=== PATIENT | male | born 1940 | race Caucasian/White ===

== ENCOUNTER 2016-05-12 15:19 | Emergency (ER) | payer OTHER ==
--- NOTE | 2016-05-12 15:32 | EDPHY ---
HPI/HX/ROS/PE/MDM Narrative: CHIEF COMPLAINT: Shortness of breath HPI: The patient is a 75-year-old male who presents with shortness of breath and bloating that began 12 hours ago. His bloating has been increasing over the past week. He has a history of similar symptoms and they are usually relieved after bowel movement and his inhaler but these did not work today. The shortness of breath is not worsened with exertion. He denies abdominal pain, chest pain, peripheral edema, or other complaints. He had a colonoscopy in March that showed a few polyps. REVIEW OF SYSTEMS: Aside from elements discussed in the HPI, a comprehensive 10-point review of systems was reviewed and is negative. PMH: COPD. SOCIAL HISTORY: Former smoker. PHYSICAL EXAM: General: Patient is alert, in no acute distress. ENT: Eyes are normal to inspection. ENT inspection normal. Neck: Normal inspection. Full range of motion. Respiratory: No respiratory distress. Breath sounds normal bilaterally. Mild tachypnea. Cardiovascular: Regular rhythm. Strong peripheral pulses. Mild tachycardia. Abdomen: The abdomen is nontender to palpation. There are no peritoneal signs. There are normal bowel sounds. Back: Normal to inspection. No tenderness to palpation. Skin: Normal color. No rash. Warm and dry. Extremities: Normal appearance. Full range of motion. Neuro: Oriented x3. Normal motor function. Normal sensory function. Portions of this note were transcribed by an ED scribe. I personally performed the history, physical exam, and medical decision making; and confirm the accuracy of the information in the transcribed note. ED Course: An IV was established and labs ordered. Chest x-ray, EKG, and abdominal x-ray obtained. Study: PA and Lateral Chest X-ray Indication: SOB. Results: I viewed the images myself on the PACS system. The radiologist interpretation per Dr. Brar, radiology, is: 1. Negative for acute abnormality. 2. Hyperexpansion suggested element of airways disease. Study: Abdomen X-ray Indication: Bloating. Results: I viewed the images myself on the PACS system. The radiologist interpretation per Dr. Schmidt, radiology, is: No significant abnormality seen within the abdomen. EKG was ordered and interpreted by myself. Please see [employer] system for official reading. MDM: This patient presents with dyspnea and abdominal bloating, which he states is a chronic intermittent occurrence for him. We performed an extensive workup in the ED to exclude CHF, PNA, PTX,ACS or bowel obstruction. The patient has negative labs and unremarkable XRs. He initially arrived somewhat tachycardic and tachypneic, but was also extremely anxious at that time. The patient's vitals have all completely normalized without intervention. We discussed possibility of PE, but patient declines testing for this possibility. He is able to race-walk without significant difficulty, so I think cardiac etiology is unlikely. The patient's primary issue appears to be abdominal bloating and there is some suggestion of constipation on XR. I have advised the patient to try an trial of laxatives tonight and to return to the ED tonight if not better. - Data Points Laboratory Results: Laboratory Results 05/12/16 15:43 05/12/16 15:43 05/12/16 05/12/16 15:43 15:43 WBC 12.51 10^3/uL H 10^3/uL (3.80-9.50) RBC 5.28 10^6/uL 10^6/uL (4.40-6.38) Hgb 16.9 g/dL g/dL (13.7-17.5) Hct 49.6 % % (40.0-51.0) MCV 93.9 fL fL (81.5-99.8) MCH 32.0 pg pg (27.9-34.1) MCHC 34.1 g/dL g/dL (32.4-36.7) RDW 12.9 % % (11.5-15.2) Plt Count 170 10^3/uL 10^3/uL (150-400) MPV 9.2 fL fL (8.7-11.7) Neut % (Auto) 60.4 % % (39.3-74.2) Lymph % (Auto) 29.3 % % (15.0-45.0) [place] % (Auto) 6.9 % % (4.5-13.0) Eos % (Auto) 2.6 % % (0.6-7.6) Baso % (Auto) 0.6 % % (0.3-1.7) Nucleat RBC Rel Count 0.0 % % (0.0-0.2) Absolute Neuts (auto) 7.58 10^3/uL H 10^3/uL (1.70-6.50) Absolute Lymphs (auto) 3.66 10^3/uL H 10^3/uL (1.00-3.00) Absolute Monos (auto) 0.86 10^3/uL H 10^3/uL (0.30-0.80) Absolute Eos (auto) 0.32 10^3/uL 10^3/uL (0.03-0.40) Absolute Basos (auto) 0.07 10^3/uL 10^3/uL (0.02-0.10) Absolute Nucleated RBC 0.00 10^3/uL 10^3/uL (0-0.01) Immature Gran % 0.2 % % (0.0-1.1) Immature Gran # 0.02 10^3/uL 10^3/uL (0.00-0.10) Sodium 141 mEq/L mEq/L (134-144) Potassium 4.2 mEq/L mEq/L (3.5-5.2) Chloride 103 mEq/L mEq/L (97-110) Carbon Dioxide 27 mEq/l mEq/l (22-31) Anion Gap 11 mEq/L mEq/L (8-16) BUN 23 mg/dL mg/dL (7-23) Creatinine 0.9 mg/dL mg/dL (0.7-1.3) Estimated GFR > 60 Glucose 80 mg/dL mg/dL (70-100) Calcium 9.9 mg/dL mg/dL (8.5-10.4) Total Bilirubin 0.9 mg/dL mg/dL (0.1-1.4) Conjugated Bilirubin 0.4 mg/dL mg/dL (0.0-0.5) Unconjugated Bilirubin 0.5 mg/dL mg/dL (0.0-1.1) AST 29 IU/L IU/L (17-59) ALT 37 IU/L IU/L (21-72) Alkaline Phosphatase 81 IU/L IU/L (38-126) Troponin I < 0.012 ng/mL ng/mL (0-0.034) NT-Pro-B Natriuret Pep 72 pg/mL pg/mL (0-125) Total Protein 6.8 g/dL g/dL (6.3-8.2) Albumin 4.5 g/dL g/dL (3.5-5.0) Medications Given: Discontinued Medications Magnesium Citrate (Magnesium Citrate) 300 ml PO ONCE ONE Stop: 05/12/16 17:07 Last Admin: 05/12/16 17:12 Dose: 300 ml General Time Seen by Provider: 05/12/16 15:31 Initial Vital Signs: Initial Vital Signs Temperature (C) 36.7 C 05/12/16 15:20 Heart Rate 117 H 05/12/16 15:20 Respiratory Rate 22 H 05/12/16 15:20 Blood Pressure 160/112 H 05/12/16 15:20 O2 Sat (%) 93 05/12/16 15:20 O2 Delivery Mode Room Air O2 (L/minute) 2 Allergies/Adverse Reactions: Penicillins Allergy (Verified 05/25/13 03:51) Sulfa (Sulfonamide Antibiotics) Allergy (Verified 05/25/13 03:51) Home Medications: Medication Instructions Recorded Flomax 0.4 MG (RX) 05/25/13 Albuterol 05/12/16 ISRADIPINE 05/12/16 Departure - Departure Disposition: Home, Routine, Self-Care Clinical Impression: Shortness of breath Constipation Qualifiers: Constipation type: unspecified constipation type Qualified Code(s): K59.00 - Constipation, unspecified Condition: Good Instructions: Constipation (ED), Dyspnea (ED) Additional Instructions: Follow up with your primary care provider this week for reevaluation. Return to the emergency department for any serious worsening of condition. Referrals: Purnima Schwab MD [Primary Care Provider] - As per Instructions Report Scribed for: Nakul Reyes Report Scribed by: Jeremy Jones Date of Report: 05/12/16 Time of Report: 15:37
--- NOTE | 2016-05-12 15:42 | CPEKG ---
Heart Rate: 110 RR Interval: 545 P-R Interval: 176 QRSD Interval: 78 QT Interval: 328 QTC Interval: 444 P Irene: 72 QRS Irene: 257 T Wave Irene: 51 EKG Severity - ABNORMAL ECG - EKG Impression: SINUS TACHYCARDIA EKG Impression: BIATRIAL ABNORMALITIES EKG Impression: INFERIOR INFARCT, OLD EKG Impression: Poor R-wave progression Electronically Signed By: Miguel Oro 14-May-2016 18:22:57
[2016-05-12 15:50] LABS: % IMMATURE GRANULYOCYTES 0.2 % (0.0-1.1); ABSOLUTE IMMATURE GRANULOCYTES 0.02 10^3/uL (0.00-0.10); ADD DIFF? NO; ADD MORPH? NO; ADD SCAN? NO; ATYPICAL LYMPHOCYTE FLAG 10 (0-99); FRAGMENT RBC FLAG 0 (0-99); HEMATOCRIT 49.6 % (40.0-51.0); HEMOGLOBIN 16.9 g/dL (13.7-17.5); LEFT SHIFT FLG 0 (0-99); LIPEMIA HEMOLYSIS FLAG 90 (0-99); MEAN CELL HEMOGLOBIN CONCENTR. 34.1 g/dL (32.4-36.7); MEAN CELL VOLUME 93.9 fL (81.5-99.8); MEAN PLATELET VOLUME 9.2 fL (8.7-11.7); PLATELET CLUMPS FLAG 0 (0-99); PLATELET COUNT 170 10^3/uL (150-400); RED BLOOD CELL COUNT 5.28 10^6/uL (4.40-6.38); RED CELL DISTRIBUTION WIDTH 12.9 % (11.5-15.2)
[2016-05-12 16:03] LABS: ALANINE AMINOTRANSFERASE 37 IU/L (21-72); ALBUMIN 4.5 g/dL (3.5-5.0); ALKALINE PHOSPHATASE 81 IU/L (38-126); ANION GAP 11 mEq/L (8-16); ASPARTATE AMINOTRANSFERASE 29 IU/L (17-59); BILIRUBIN,TOTAL 0.9 mg/dL (0.1-1.4); BILIRUBIN-CONJUGATED 0.4 mg/dL (0.0-0.5); BILIRUBIN-UNCONJUGATED 0.5 mg/dL (0.0-1.1); CALCIUM 9.9 mg/dL (8.5-10.4); CARBON DIOXIDE 27 mEq/l (22-31); CHLORIDE 103 mEq/L (97-110); CREATININE 0.9 mg/dL (0.7-1.3); GLOMERULAR FILTRATION RATE > 60; GLUCOSE 80 mg/dL (70-100); POTASSIUM 4.2 mEq/L (3.5-5.2); SODIUM 141 mEq/L (134-144); TOTAL PROTEIN 6.8 g/dL (6.3-8.2)
[2016-05-12 16:14] LABS: TROPONIN I < 0.012 ng/mL (0-0.034)
[2016-05-12 16:51] VITALS: TEMP 98.6
[2016-05-12] MEDS: MAGNESIUM CITRATE 300 ML BOTTLE PO ONE (17:12)
[2016-05-12 17:25] VITALS: BP 115/83; PULSE 80; RESP 16; O2SAT 97
== END 2016-05-12 17:25 | disposition home or self-care (01) ==
DX: R06.02 Shortness of breath (principal); K59.00 Constipation, unspecified; J44.9 Chronic obstructive pulmonary disease, unspecified; Z87.891 Personal history of nicotine dependence

== ENCOUNTER 2016-05-13 00:44 | Emergency (ER) | payer OTHER ==
[2016-05-13 00:49] VITALS: TEMP 97.9
[2016-05-13] MEDS ORDERED: IOPAMIDOL (ISOVUE-300) 100 ML BTL IV ONE (01:37)
[2016-05-13 02:43] LABS: COLOR YELLOW; LEUKOCYTE ESTERASE,URINE NEGATIVE (NEGATIVE); NITRITE,URINE NEGATIVE (NEGATIVE)
--- NOTE | 2016-05-13 03:24 | EDPHY ---
H & P Stated Complaint: seen earlier, continued bloating and SOB Time Seen by Provider: 05/13/16 01:07 HPI/ROS: HPI The patient presents with continued abdominal bloating associated with mild shortness of breath. His symptoms have been present for the last 1 day. He took a dose of simethicone without any improvement in his symptoms in the morning. He then was able to have branch with friends and go for a long walk without any problems. He had continued bloating in the afternoon, so came to the emergency room. Chest x-ray and abdominal x-ray were obtained and basic labs were performed. His workup was relatively unremarkable and it was presumed that he had constipation as the cause of his symptoms. He was discharged home about 5:00 p.m. with a prescription of magnesium citrate. He was able to take this without difficulty and did have about 3 bowel movements afterwards. He said he has been unable to sleep because he is feeling uncomfortable because of the abdominal bloating that he is experiencing. He feels somewhat panicked because of all of this. He does have history of intermittent abdominal bloating. He is not having any vomiting, true abdominal pain. REVIEW OF SYSTEMS Constitutional: No fever, no chills. Eyes: No discharge. ENT: No sore throat. Cardiovascular: No chest pain, no palpitations. Respiratory: No cough, no shortness of breath. Gastrointestinal: No abdominal pain, no vomiting. Genitourinary: No hematuria. Musculoskeletal: No back pain. Skin: No rashes. Neurological: No headache. PMHx: BPH, history of cervical spinal operation Soc Hx: Housed, occasional beer drinker PHYSICAL General Appearance: Alert, no distress Eyes: Pupils equal and round no pallor or injection ENT, Mouth: Mucous membranes moist Respiratory: There are no retractions, lungs are clear to auscultation Cardiovascular: Regular rate and rhythm Gastrointestinal: Abdomen is soft with very mild distension, no tenderness is present Neurological: A&O, moves all extremities Skin: Warm and dry, no rashes Musculoskeletal: Neck is supple non tender Extremities: symmetrical, full range of motion Psychiatric: Patient is oriented X 3, there is no agitation Source: Patient Exam Limitations: No limitations - Personal History Current Tetanus/Diphtheria Vaccine: Unsure Current Tetanus Diphtheria and Acellular Pertussis (TDAP): Unsure - Medical/Surgical History Hx Asthma: No Hx Chronic Respiratory Disease: Yes Hx Diabetes: No Hx Cardiac Disease: No Hx Renal Disease: No Hx Cirrhosis: No Hx Alcoholism: No Hx HIV/AIDS: No Hx Splenectomy or Spleen Trauma: No Other PMH: 05/19/12 cervical spinal surgery 05/31, [facility], BPH - Social History Smoking Status: Former smoker Constitutional: Initial Vital Signs Temperature (C) 36.6 C 05/13/16 00:47 Heart Rate 99 05/13/16 00:47 Respiratory Rate 18 05/13/16 00:47 Blood Pressure 136/95 H 05/13/16 00:47 O2 Sat (%) 93 05/13/16 00:47 O2 Delivery Mode Room Air O2 (L/minute) 36.8 Allergies/Adverse Reactions: Penicillins Allergy (Verified 05/25/13 03:51) Sulfa (Sulfonamide Antibiotics) Allergy (Verified 05/25/13 03:51) Home Medications: Medication Instructions Recorded Flomax 0.4 MG (RX) 05/25/13 Albuterol 05/12/16 ISRADIPINE 05/12/16 Medical Decision Making - Diagnostics Imaging: CT abdomen pelvis with IV contrast: Moderate right hydronephrosis with a 7 mm stone in the distal ureter, also there is a distal UVJ mucosal lesion suspected. 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 Discussed with Dr. Boone of Radiology. ED Course/Re-evaluation: In the emergency room, the patient took a dose of his Xanax because he was feeling quite anxious. I-STAT was performed and was unremarkable, thus CT scan was performed with IV contrast of his abdomen. It did not show any obstruction or constipation, however it did reveal right-sided hydronephrosis with a 7 mm kidney stone as well as a mucosal lesion at the UVJ. It is unclear if the stone or the lesion is causing obstruction. It would be possible, though unlikely for hydronephrosis to cause this feeling of abdominal bloating. His CT scan also does see a pericardial cyst. I doubt this is the cause of his symptoms given the bloating is his predominant complaint. I have discussed the results of the CT scan with him. UA was obtained and was unremarkable for any hematuria. He does see a urologist, though cannot recall the name for his BPH. I have explained the importance of Urology follow-up to him. He has an appointment with his primary care doctor within the next 10 days and I feel this will be helpful given that there is some diagnostic uncertainty related to his abdominal bloating. He will be discharged from the emergency room. Differential Diagnosis: This is a 75-year-old man with history of BPH who re-presents to the emergency room for continued abdominal bloating. He has had symptoms for the last 1 day. He was seen in the emergency room earlier today and diagnosed with constipation. He took magnesium citrate at home and had 3 bowel movements, however his bloating continues. This is associated with a feeling of panic and mild shortness of breath which she feels is due to the pressure from his abdomen. Differential diagnosis includes constipation, bowel obstruction, new onset ascites. - Data Points Laboratory Results: 05/13/16 02:35 Urine Color YELLOW Urine Appearance CLEAR Urine pH 5.0 (5.0-7.5) Ur Specific [place] 1.035 H (1.002-1.030) Urine Protein NEGATIVE (NEGATIVE) Urine Ketones NEGATIVE (NEGATIVE) Urine Blood NEGATIVE (NEGATIVE) Urine Nitrate NEGATIVE (NEGATIVE) Urine Bilirubin NEGATIVE (NEGATIVE) Urine Urobilinogen NEGATIVE EU EU (0.2-1.0) Ur Leukocyte Esterase NEGATIVE (NEGATIVE) Ur Culture Indicated? NOT INDICATED (NI) Urine Glucose NEGATIVE (NEGATIVE) Departure - Departure Disposition: Home, Routine, Self-Care Clinical Impression: Abdominal bloating, Ureteral stone with hydronephrosis Condition: Good Instructions: Gas and Bloating (ED) Additional Instructions: Please follow-up with your primary care doctor this week about your CT scan and your bloating. You can try simethicone as well as a low gluten diet to see if this improves her symptoms. You should also follow up with Urology. I have given you the information for our urologist that you can make an appointment with. Referrals: Purnima Schwab MD [Primary Care Provider] - As per Instructions Cyrus Glass MD [Medical Doctor] - As per Instructions
[2016-05-13 03:39] VITALS: BP 115/80; PULSE 77; RESP 20; O2SAT 92
== END 2016-05-13 03:39 | disposition home or self-care (01) ==
DX: R14.0 Abdominal distension (gaseous) (principal); N20.1 Calculus of ureter; N13.30 Unspecified hydronephrosis; Z87.891 Personal history of nicotine dependence
CPT/HCPCS: 74177; 99285; Q9967

== ENCOUNTER 2016-06-05 19:39 | Observation (INO) | payer OTHER ==
--- NOTE | 2016-06-05 19:48 | EDPHY ---
H & P Stated Complaint: SOB, difficulty breathing x1 month, seen at PCP today HPI/ROS: HPI CHIEF COMPLAINT: Dyspnea HISTORY OF PRESENT ILLNESS: This patient Is a 75-year-old male significant past medical history for COPD, not on O2, BPH, cervical fusion, presents emergency room with 1 month of progressively worsening shortness of breath, wheezing. Saw his primary care doctor today. Was given a prescription for albuterol inhalation aerosol to take home. He got to the pharmacy felt he was having worsening shortness of breath decided come the emergency room. He denies chest pain. Denies fever. He does have a cough white sputum. No pleuritic pain no hemoptysis. States over the past month he has been progressively worsening shortness of breath. No weight gain, no lower extremity edema. Upon arrival here in emergency room pulse ox room air 90%, noted to be slightly tachycardic 101, with expiratory wheezing. Mild tachypnea. Past Medical History: COPD, BPH Past Surgical History: Cervical fusion Social History: Remote smoking history, denies daily use of drugs tobacco. Denies alcohol. Family History: Noncontributory ROS REVIEW OF SYSTEMS: A comprehensive 10 point review of systems is otherwise negative aside from elements mentioned in the history of present illness. Exam Constitutional Flares well nontoxic, triage nursing summary reviewed, vital signs reviewed, awake/alert. Vital signs reviewed pulse ox 90%. Eyes normal conjunctivae and sclera, EOMI, PERRLA. HENT normal inspection, atraumatic, moist mucus membranes, no epistaxis, neck supple/ no meningismus, no raccoon eyes. Respiratory decreased breath sounds bilaterally, expiratory wheezing, mild tachypnea Cardiovascular rate normal, regular rhythm, no murmur, no edema, distal pulses normal. Gastrointestinal soft, non-tender, no rebound, no guarding, normal bowel sounds, no distension, no pulsatile mass. Genitourinary no CVA tenderness. Musculoskeletal no midline vertebral tenderness, full range of motion, no calf swelling, no tenderness of extremities, no meningismus, good pulses, neurovascularly intact. Skin pink, warm, & dry, no rash, skin atraumatic. Neurologic awake, alert and oriented x 3, AAOx3, moves all 4 extremities equally, motor intact, sensory intact, CN II-XII intact, normal cerebellar, normal vision, normal speech. Psychiatric normal mood/affect. Heme/Lymph/Immune no lymphadenopathy. Differential Diagnosis: Includes but is not limited to in a particular order, COPD exacerbation, pneumonia, viral pneumonia, bacterial pneumonia, pneumothorax or CHF, ACS Medical Decision Making: Plan for patient IV establishment blood draw, IV fluid bolus IV Solu-Medrol, DuoNeb breathing treatment two view chest x-ray. EKG. Re-evaluation. Re-evaluation: ED x-ray chest two view; image interpreted myself. Prolonged lung drew. Narrow cardiac silhouette. COPD appearing. No focal infiltrate. No pneumothorax. EKG interpretation by me on record in [employer] system. Impression time of EKG 2023, sinus rhythm rate of 97 Q-waves present in inferior leads otherwise unremarkable. 2033: Re-examination at this time this patient does feel better. Feels better after DuoNeb breathing treatment. Clear breath sounds. Discussion the patient about admission to the hospital for COPD exacerbation about going home. He still deciding. He choose to go home I will prescribe him prednisone, albuterol, azithromycin. We will road test him on pulse ox to see if he desats or gets dyspnea on exertion. 2049: Re-examination at this time patient requesting admission to the hospital for shortness of breath. He did ambulate well. Pulse ox 90%. Still has very faint wheezing. Plan is for admission for COPD exacerbation IV azithromycin ordered. IV Solu-Medrol, oxygen 2 L, steroids. Source: Patient - Personal History Current Tetanus/Diphtheria Vaccine: Unsure Current Tetanus Diphtheria and Acellular Pertussis (TDAP): Unsure - Medical/Surgical History Hx Asthma: No Hx Chronic Respiratory Disease: Yes Hx Diabetes: No Hx Cardiac Disease: No Hx Renal Disease: No Hx Cirrhosis: No Hx Alcoholism: No Hx HIV/AIDS: No Hx Splenectomy or Spleen Trauma: No Other PMH: 05/19/12 cervical spinal surgery 05/31, [facility], BPH, COPD - Social History Smoking Status: Former smoker Constitutional: Initial Vital Signs Temperature (C) 37.1 C 06/05/16 19:40 Heart Rate 99 06/05/16 19:40 Respiratory Rate 20 06/05/16 19:40 Blood Pressure 122/99 H 06/05/16 19:40 O2 Sat (%) 93 06/05/16 19:40 O2 Delivery Mode Room Air Allergies/Adverse Reactions: Penicillins Allergy (Verified 06/05/16 19:43) Sulfa (Sulfonamide Antibiotics) Allergy (Verified 06/05/16 19:43) Home Medications: Medication Instructions Recorded Flomax 0.4 MG (RX) 05/25/13 Albuterol 05/12/16 ISRADIPINE 05/12/16 Albuterol [Proventil Inhaler HFA 1 - 2 puffs IH Q4H #1 mdi 06/05/16 (*)] predniSONE 60 mg PO DAILY #15 tab 06/05/16 Medical Decision Making - Data Points Laboratory Results: Laboratory Results 06/05/16 20:03 06/05/16 20:03 06/05/16 06/05/16 06/05/16 20:03 20:03 20:03 WBC 16.16 10^3/uL H 10^3/uL (3.80-9.50) RBC 5.27 10^6/uL 10^6/uL (4.40-6.38) Hgb 16.6 g/dL g/dL (13.7-17.5) Hct 48.9 % % (40.0-51.0) MCV 92.8 fL fL (81.5-99.8) MCH 31.5 pg pg (27.9-34.1) MCHC 33.9 g/dL g/dL (32.4-36.7) RDW 13.1 % % (11.5-15.2) Plt Count 240 10^3/uL 10^3/uL (150-400) MPV 9.1 fL fL (8.7-11.7) Neut % (Auto) 51.9 % % (39.3-74.2) Lymph % (Auto) 33.0 % % (15.0-45.0) [place] % (Auto) 6.6 % % (4.5-13.0) Eos % (Auto) 7.7 % H % (0.6-7.6) Baso % (Auto) 0.5 % % (0.3-1.7) Nucleat RBC Rel Count 0.0 % % (0.0-0.2) Absolute Neuts (auto) 8.37 10^3/uL H 10^3/uL (1.70-6.50) Absolute Lymphs (auto) 5.34 10^3/uL H 10^3/uL (1.00-3.00) Absolute Monos (auto) 1.07 10^3/uL H 10^3/uL (0.30-0.80) Absolute Eos (auto) 1.25 10^3/uL H 10^3/uL (0.03-0.40) Absolute Basos (auto) 0.08 10^3/uL 10^3/uL (0.02-0.10) Absolute Nucleated RBC 0.00 10^3/uL 10^3/uL (0-0.01) Immature Gran % 0.3 % % (0.0-1.1) Immature Gran # 0.05 10^3/uL 10^3/uL (0.00-0.10) PT 12.7 SEC SEC (12.0-15.0) INR 0.96 (0.83-1.16) APTT 26.0 SEC SEC (23.0-38.0) Sodium 139 mEq/L mEq/L (134-144) Potassium 4.2 mEq/L mEq/L (3.5-5.2) Chloride 104 mEq/L mEq/L (97-110) Carbon Dioxide 24 mEq/l mEq/l (22-31) Anion Gap 11 mEq/L mEq/L (8-16) BUN 19 mg/dL mg/dL (7-23) Creatinine 0.9 mg/dL mg/dL (0.7-1.3) Estimated GFR > 60 Glucose 127 mg/dL H mg/dL (70-100) Calcium 9.3 mg/dL mg/dL (8.5-10.4) Magnesium 2.2 mg/dL mg/dL (1.6-2.3) Total Bilirubin 0.8 mg/dL mg/dL (0.1-1.4) Conjugated Bilirubin 0.5 mg/dL mg/dL (0.0-0.5) Unconjugated Bilirubin 0.3 mg/dL mg/dL (0.0-1.1) AST 22 IU/L IU/L (17-59) ALT 29 IU/L IU/L (21-72) Alkaline Phosphatase 80 IU/L IU/L (38-126) Creatine Kinase 55 IU/L IU/L (0-224) CK-MB (CK-2) Fraction 1.76 ng/mL ng/mL (0-3.19) Troponin I < 0.012 ng/mL ng/mL (0-0.034) NT-Pro-B Natriuret Pep 47 pg/mL pg/mL (0-125) Total Protein 6.6 g/dL g/dL (6.3-8.2) Albumin 4.4 g/dL g/dL (3.5-5.0) Medications Given: Discontinued Medications Albuterol/Ipratropium (Duoneb) 3 ml IH EDNOW ONE Stop: 06/05/16 19:55 Last Admin: 06/05/16 20:44 Dose: 3 ml Sodium Chloride (Ns) 1,000 mls @ 0 mls/hr IV ONCE ONE PRN Reason: Wide Open Stop: 06/05/16 19:54 Last Admin: 06/05/16 20:11 Dose: 1,000 mls Methylprednisolone Sodium Succinate (Solu-Medrol) 125 mg IVP EDNOW ONE Stop: 06/05/16 19:55 Last Admin: 06/05/16 20:11 Dose: 125 mg Departure - Departure Disposition: Home, Routine, Self-Care Clinical Impression: COPD (chronic obstructive pulmonary disease) Qualifiers: COPD type: unspecified COPD Qualified Code(s): J44.9 - Chronic obstructive pulmonary disease, unspecified Condition: Good Instructions: COPD (Chronic Obstructive Pulmonary Disease) (ED) Additional Instructions: 1. Stay well-hydrated drink lots of fluids. 2. take medication as prescribed. 3. Return emergency room if you have any worsening symptoms questions or concerns includes worsening shortness of breath chest pain. Referrals: Purnima Schwab MD [Primary Care Provider] - As per Instructions Prescriptions: Albuterol [Proventil Inhaler HFA (*)] 1 - 2 puffs IH Q4H #1 mdi predniSONE 60 mg PO DAILY #15 tab
[2016-06-05] MEDS ORDERED: NS 1,000 ML IV ONE (19:53)
[2016-06-05] MEDS ORDERED: IPRATROPIUM/ALBUTEROL 3 ML DEYVIAL IH ONE (19:54)
[2016-06-05] MEDS ORDERED: methylPREDNISolone SOD SUCC 125 MG/2 ML VIAL IVP ONE (19:54)
[2016-06-05 20:15] LABS: % IMMATURE GRANULYOCYTES 0.3 % (0.0-1.1); ABSOLUTE IMMATURE GRANULOCYTES 0.05 10^3/uL (0.00-0.10); ADD DIFF? NO; ADD MORPH? NO; ADD SCAN? NO; ATYPICAL LYMPHOCYTE FLAG 10 (0-99); FRAGMENT RBC FLAG 10 (0-99); HEMATOCRIT 48.9 % (40.0-51.0); HEMOGLOBIN 16.6 g/dL (13.7-17.5); LEFT SHIFT FLG 0 (0-99); LIPEMIA HEMOLYSIS FLAG 90 (0-99); MEAN CELL HEMOGLOBIN 31.5 pg (27.9-34.1); MEAN CELL HEMOGLOBIN CONCENTR. 33.9 g/dL (32.4-36.7); MEAN CELL VOLUME 92.8 fL (81.5-99.8); MEAN PLATELET VOLUME 9.1 fL (8.7-11.7); PLATELET CLUMPS FLAG 10 (0-99); PLATELET COUNT 240 10^3/uL (150-400); RED BLOOD CELL COUNT 5.27 10^6/uL (4.40-6.38); RED CELL DISTRIBUTION WIDTH 13.1 % (11.5-15.2)
[2016-06-05 20:23] LABS: ALANINE AMINOTRANSFERASE 29 IU/L (21-72); ALBUMIN 4.4 g/dL (3.5-5.0); ALKALINE PHOSPHATASE 80 IU/L (38-126); ANION GAP 11 mEq/L (8-16); ASPARTATE AMINOTRANSFERASE 22 IU/L (17-59); BILIRUBIN,TOTAL 0.8 mg/dL (0.1-1.4); BILIRUBIN-CONJUGATED 0.5 mg/dL (0.0-0.5); BILIRUBIN-UNCONJUGATED 0.3 mg/dL (0.0-1.1); CALCIUM 9.3 mg/dL (8.5-10.4); CARBON DIOXIDE 24 mEq/l (22-31); CHLORIDE 104 mEq/L (97-110); CREATININE 0.9 mg/dL (0.7-1.3); GLOMERULAR FILTRATION RATE > 60; GLUCOSE 127 mg/dL (70-100); MAGNESIUM 2.2 mg/dL (1.6-2.3); POTASSIUM 4.2 mEq/L (3.5-5.2); SODIUM 139 mEq/L (134-144); TOTAL PROTEIN 6.6 g/dL (6.3-8.2)
--- NOTE | 2016-06-05 20:26 | CPEKG ---
Heart Rate: 97 RR Interval: 619 P-R Interval: 144 QRSD Interval: 82 QT Interval: 340 QTC Interval: 432 P Ideal: 63 QRS Ideal: 265 T Wave Ideal: 26 EKG Severity - ABNORMAL ECG - EKG Impression: SINUS RHYTHM EKG Impression: BIATRIAL ABNORMALITIES EKG Impression: INFERIOR INFARCT, OLD EKG Impression: BORDERLINE R WAVE PROGRESSION, ANTERIOR LEADS Electronically Signed By: Osman Harrington 05-Jun-2016 22:24:26
[2016-06-05 20:28] LABS: INR 0.96 (0.83-1.16); PROTIME(PATIENT) 12.7 SEC (12.0-15.0)
[2016-06-05 20:35] LABS: CREATINE KINASE-MB FRACTION 1.76 ng/mL (0-3.19); TROPONIN I < 0.012 ng/mL (0-0.034)
[2016-06-05] MEDS ORDERED: AZITHROMYCIN IV 500 MG in D5W 250 ML IV ONE (20:50)
[2016-06-05] MEDS ORDERED: ACETAMINOPHEN 325 MG TAB PO PRN (23:18)
[2016-06-05] MEDS ORDERED: ONDANSETRON DISINTEGRATING 4 MG TAB PO PRN (23:18)
[2016-06-05] MEDS ORDERED: ALBUTEROL 3 ML DEYVIAL IH PRN (23:18)
[2016-06-05] MEDS ORDERED: ONDANSETRON 4 MG/2 ML VIAL IVP PRN (23:18)
[2016-06-06 00:04] VITALS: O2SAT 95
--- NOTE | 2016-06-06 00:49 | GHP ---
[f rep st] HISTORY AND PHYSICAL DATE OF ADMISSION: 06/05/2016 CHIEF COMPLAINT: Shortness of breath. HISTORY OF PRESENT ILLNESS: The patient is a 75-year-old male, with a history of tobacco abuse and possible COPD, who presents to the emergency department with shortness of breath. This is the third ER visit in the past month with these symptoms. He was recently referred by his primary care physician for pulmonary function tests due to suspected COPD, though this diagnosis has not been confirmed. He states for the past 3-4 weeks, he has had a cough, which has been intermittently productive of clear sputum. He also complains of wheezing. He has been treated with albuterol in the outpatient setting, and recently completed 1 week of oral prednisone, though he had worsening shortness of breath symptoms today, and presents to the emergency department. He denies chest pain. He denies fevers or chills. There are no sick contacts. In the emergency department, he was given IV Solu-Medrol and nebulizer treatments, which did help his symptoms, though he is persistently dyspneic, with oxygen saturations in the low 90s, thus he is admitted to the hospital for further management. PAST MEDICAL HISTORY: 1. Benign prostatic hypertrophy. 2. History of tobacco abuse. 3. Possible COPD. 4. Possible Parkinson's disease. Patient states he has seen a neurologist, who suspects he may have Parkinson's, though this diagnosis has not been definitively made. PAST SURGICAL HISTORY: 1. Cervical fusion. 2. Lithotripsy, with ureteral stent placement, which has since been removed by Dr. Jackson. SOCIAL HISTORY: The patient reports he quit smoking in 2013 at the time of his cervical fusion surgery. He reports regular alcohol use, though denies history of withdrawal symptoms. He denies other drug use. He lives independently. He is . FAMILY HISTORY: Reviewed and noncontributory. REVIEW OF SYSTEMS: A 10-point review of systems was performed and is negative, except as per HPI. OBJECTIVE: VITAL SIGNS: Temperature is 37.1, blood pressure 131/72, heart rate 99, respiratory rate 14. He is 93% on room air. GENERAL: The patient is awake, alert, and oriented, in no acute distress. HEENT: Head is atraumatic, normocephalic. Pupils are equal, round, and reactive to light. Extraocular muscles are intact. Oropharynx is clear. Mucous membranes are moist. NECK: Supple. There is no JVD. HEART: Regular rate and rhythm without murmur. LUNGS: Clear to auscultation, without wheezes, rales, or rhonchi. There is a slightly prolonged expiratory phase, with more diminished breath sounds on the left. ABDOMEN: Soft, nondistended, nontender. Normoactive bowel sounds. EXTREMITIES: Without cyanosis, clubbing, or edema. NEUROLOGIC: Grossly nonfocal. LABORATORY DATA: His CBC reveals a white blood cell of 16,000, with just 51% neutrophils, hemoglobin is normal. INR is normal. D-dimer is negative. Complete metabolic panel is within normal limits. Blood sugar is 127. Troponin is negative. NT proBNP is 47. EKG is reviewed, and shows normal sinus rhythm, with Q waves in his inferior leads, and a poor R-wave progression, otherwise no ST-segment or T-wave changes to suggest acute ischemia. 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 I personally reviewed and interpreted his chest x-ray , and I think he does have some bilateral flattening of the diaphragms. ASSESSMENT AND PLAN: The patient is a 75-year-old male who was admitted to the hospital with shortness of breath and mild hypoxemia. 1. Shortness of breath. Suspect COPD exacerbation though consider other etiologies including cardiophrenic mass on CXR vs cardiac etiology. BNP neg. D dimer neg. Trop negative. EKG is nonischemic, although Q waves are noted in his inferior leads. No e/o PNA on CXR and he is afebrile. He does have a leukocytosis, though he has recently completed a week of prednisone. His symptoms worsened 2 days after completing prednisone course. He may need a longer duration of therapy with a taper. He has not required oxygen, and is maintaining his saturations on room air around 93%. He has not been diagnosed with COPD by PFT's. I do not hear wheezing on exam, though the ED physician noted expiratory wheezes, and he has received nebulizer and IV Solu-Medrol prior to my arrival. I will go ahead and continue treatment for possible COPD exacerbation with oral prednisone, DuoNeb's, and azithromycin. Since I am also considering other etiologies of his shortness of breath, will check an echocardiogram to assess for pulmonary hypertension or other cardiac etiologies. He may warrant a pulmonary consult regarding the mass on CXR. 2. Hypertension. His blood pressure is fairly well controlled. We will continue his outpatient regimen. 3. Deep vein thrombosis prophylaxis. Lovenox. 4. Code status. Patient is full code. 5. Disposition. We will admit patient to observation status, as he may be a candidate for discharge in the morning if his symptoms are improved. /[id number]/MODL MTDD
[2016-06-06 03:53] VITALS: RESP 16
[2016-06-06 05:18] LABS: % IMMATURE GRANULYOCYTES 0.4 % (0.0-1.1); ABSOLUTE IMMATURE GRANULOCYTES 0.03 10^3/uL (0.00-0.10); ADD DIFF? NO; ADD MORPH? NO; ADD SCAN? NO; ATYPICAL LYMPHOCYTE FLAG 0 (0-99); FRAGMENT RBC FLAG 0 (0-99); HEMATOCRIT 45.3 % (40.0-51.0); HEMOGLOBIN 15.5 g/dL (13.7-17.5); LEFT SHIFT FLG 0 (0-99); LIPEMIA HEMOLYSIS FLAG 90 (0-99); MEAN CELL HEMOGLOBIN 31.4 pg (27.9-34.1); MEAN CELL HEMOGLOBIN CONCENTR. 34.2 g/dL (32.4-36.7); MEAN CELL VOLUME 91.7 fL (81.5-99.8); MEAN PLATELET VOLUME 9.3 fL (8.7-11.7); PLATELET CLUMPS FLAG 0 (0-99); PLATELET COUNT 205 10^3/uL (150-400); RED BLOOD CELL COUNT 4.94 10^6/uL (4.40-6.38); RED CELL DISTRIBUTION WIDTH 13.1 % (11.5-15.2)
[2016-06-06] MEDS: IPRATROPIUM/ALBUTEROL 3 ML DEYVIAL IH SCH ×2 (06:01→12:03)
[2016-06-06 07:55] VITALS: BP 126/78; PULSE 95; TEMP 98.1
[2016-06-06] MEDS ORDERED: ISRADIPINE 2.5 MG PO SCH ×2 (09:00→21:00)
[2016-06-06] MEDS ORDERED: predniSONE 20 MG TAB PO SCH (09:00)
[2016-06-06] MEDS ORDERED: AZITHROMYCIN 250 MG TAB PO SCH (09:00)
[2016-06-06] MEDS ORDERED: ENOXAPARIN 40 MG/0.4 ML SYR SC SCH (09:00)
--- NOTE | 2016-06-06 10:11 | GDS ---
[f rep st] DISCHARGE SUMMARY DISCHARGE DIAGNOSES: 1. Acute respiratory failure due to suspected chronic obstructive pulmonary disease exacerbation. 2. Controlled hypertension. 3. 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 HOSPITAL COURSE AND STAY BY PROBLEM: Acute respiratory failure due to suspected COPD exacerbation: The patient was admitted to the hospital where he was treated with IV azithromycin and Solu-Medrol. On hospital day #1, says his breathing is much better, and his oxygen saturations are greater than 90% on room air. He denies any fevers or chills. He denies a productive cough. PHYSICAL EXAM: VITAL SIGNS: On day of discharge, blood pressure 126/78, pulse 95, respiratory rate 16, O2 saturation 95% on 1 L, temperature afebrile. GENERAL: No acute distress. HEART: S1, S2. LUNGS: Clear. No wheezes, rales, or rhonchi. DIAGNOSTICS: D-dimer was negative. Chest x-ray done 06/05/2016 revealed a right costophrenic mass that was previously seen on CT and was diagnosed as a cyst that appears to be stable since April of 2015. DISCHARGE MEDICATIONS: Please refer to discharge medication reconciliation in [facility] for full det ails. Below is a preliminary list. New medications on hospital discharge: Zithromax 250 mg daily to complete 5 days, prednisone 40 mg daily to complete 5 days. DISCHARGE INSTRUCTIONS: The patient will be discharged from the hospital where he should follow up with his primary care provider next week as scheduled. He would likely benefit from outpatient pulm onology consultation and PFTs once he recovers to formally diagnose him with COPD. He should probab ly also have further interval followup of the costophrenic cyst seen on CT and chest x-ray. The pat ient should also be evaluated for sleep apnea. /[id number]/MODL
== END 2016-06-06 12:15 | disposition home or self-care (01) ==
LOC: INTOOBSV 20:52 → F3E 21:43
PROVIDERS: ADMIT Hospitalist; ATTEND Hospitalist
DX: J96.00 Acute respiratory failure, unspecified whether with hypoxia or hypercapnia (principal); J44.9 Chronic obstructive pulmonary disease, unspecified; I10 Essential (primary) hypertension; R22.2 Localized swelling, mass and lump, trunk; Z87.891 Personal history of nicotine dependence
CPT/HCPCS: 71020; 93005; 96361; 96374; 96375; 99285; G0378; J0456; J1650

== ENCOUNTER 2016-08-24 21:02 | Emergency (ER) | payer OTHER ==
[2016-08-24 21:07] VITALS: RESP 16
--- NOTE | 2016-08-24 22:10 | EDPHY ---
H & P Time Seen by Provider: 08/24/16 21:33 HPI/ROS: CHIEF COMPLAINT: urinary retention HISTORY OF PRESENT ILLNESS: 75-year-old male presents emergency department complaining of urinary retention. Patient had a cystoscopy and stent placement in his left ureter [address] Jackson. Patient has been self cathing multiple times per day since this time. He is able to urinate 25-50 mL at a time on his own. This evening he went to self cathing he could not pass the catheter and had a little bright red blood. Patient denies abdominal pain. No fevers, no back pain, no nausea or vomiting. Patient has an appointment in 2 days with another urologist for 2nd opinion, he has an appointment in 5 days for stent removal. REVIEW OF SYSTEMS: A comprehensive 10 point review of systems is otherwise negative aside from elements mentioned in the history of present illness. Smoking Status: Former smoker Physical Exam: Physical Exam Gen: Alert and Oriented, NAD HEENT: PERRL, moist mucous membranes NECK: no meningismus CV: regular rate and regular rhythm PULM: CTAB, no wheezes ABDOMEN: soft, non tender to palpation, BS present BACK: No CVA tenderness NEURO: Neurologically grossly intact EXTREMITIES: normal appearing SKIN: no rash or break in skin on exposed skin PSYCH: answers questions appropriately. Constitutional: Initial Vital Signs Temperature (C) 36.5 C 08/24/16 21:03 Heart Rate 96 08/24/16 21:03 Respiratory Rate 16 08/24/16 21:03 Blood Pressure 136/88 H 08/24/16 21:03 O2 Sat (%) 94 08/24/16 21:03 O2 Delivery Mode Room Air Allergies/Adverse Reactions: Penicillins Allergy (Verified 06/05/16 19:43) Sulfa (Sulfonamide Antibiotics) Allergy (Verified 06/05/16 19:43) Home Medications: Medication Instructions Recorded Albuterol 08/24/16 ISRADIPINE 08/24/16 Macrobid 100 mg Capsule 100 mg PO DAILY 08/24/16 Xanax 0.25 MG (*) 08/24/16 MDM/Departure - [facility] ED Course/Re-evaluation: I spoke with RAMBO Bee with Dr. Jackson. She is recommending placing a perdomo catheter and having the patient follow up on Friday. Patient is comfortable with this plan. He has an appointment a urologist on Friday.. - Depart Disposition: Home, Routine, Self-Care Clinical Impression: Acute retention of urine Condition: Good Instructions: Urinary Retention in Men (ED), Perdomo Catheter Placement and Care (ED) Additional Instructions: Follow up with the urologist as scheduled on Friday. Return to the emergency department for any new symptoms or concerns. Referrals: Zion Jackson MD [Medical Doctor] - As per Instructions
[2016-08-24] MEDS ORDERED: LIDOCAINE 2% JELLY 20 ML (UROJECT) ONE (22:12)
[2016-08-24] MEDS ORDERED: LIDOCAINE 2% JELLY 20 ML (UROJECT) UR ONE (22:18)
[2016-08-24 22:49] VITALS: BP 129/83; PULSE 80; TEMP 97.9; O2SAT 93
== END 2016-08-24 22:49 | disposition home or self-care (01) ==
PROC: 0T9B70Z Drainage of Bladder with Drainage Device, Via Natural or Artificial Opening (ICD-10-PCS; principal; 2016-08-24)
DX: R33.9 Retention of urine, unspecified (principal); Z87.891 Personal history of nicotine dependence

== ENCOUNTER 2016-10-22 04:54 | Emergency (ER) | payer OTHER ==
[2016-10-22 05:03] VITALS: BP 132/103; PULSE 102; RESP 22; TEMP 97.7; O2SAT 96
== END 2016-10-22 06:03 | disposition left against medical advice (07) ==
DX: Z53.21 Procedure and treatment not carried out due to patient leaving prior to being seen by health care provider (principal)

== ENCOUNTER 2016-10-22 19:21 | Emergency (ER) | payer OTHER ==
[2016-10-22 19:30] VITALS: TEMP 98.2
[2016-10-22] MEDS ORDERED: MAGNESIUM SULF 2 GM/WATER 50 ML IV ONE (20:33)
[2016-10-22] MEDS ORDERED: methylPREDNISolone SOD SUCC 125 MG/2 ML VIAL IVP ONE (20:33)
[2016-10-22] MEDS ORDERED: ALBUTEROL 3 ML DEYVIAL IH ONE ×3 (20:33→21:56)
[2016-10-22] MEDS ORDERED: IPRATROPIUM/ALBUTEROL 3 ML DEYVIAL IH ONE (20:33)
--- NOTE | 2016-10-22 20:36 | EDPHY ---
H & P Smoking Status: Former smoker Time Seen by Provider: 10/22/16 20:14 HPI/ROS: CHIEF COMPLAINT: Short of breath HISTORY OF PRESENT ILLNESS: Patient has a history of COPD and was last on prednisone a couple of months ago. Over the last 48-72 hours he has felt more short of breath with a nonproductive cough. There has been increased smoke and haze in the air and he thinks that might be the culprit. He has been using his rescue inhaler about every hour. It helps temporarily, then symptoms worsen. He was here earlier in the day but decided to leave without physician evaluation. Symptoms of shortness of breath are moderate to severe and worse with exertion. Not associated with chest pain or hemoptysis or fever or chills or leg swelling. Not worse with lying down. No recent travel or immobilization. REVIEW OF SYSTEMS: Eye: no change in vision ENT: no sore throat Cardiac: no chest pain or syncope Pulmonary: HPI Abdomen: no vomiting, diarrhea, abdominal pain Musculoskeletal: no back pain Skin: no rash Neuro: no headache Constitutional: no fever : no urinary symptoms, recent kidney stone A comprehensive 10 point review of systems is otherwise negative aside from elements mentioned in the history of present illness. PAST MEDICAL HISTORY: COPD, cervical spine fusion, appendectomy, prostatic hypertrophy, kidney stone. No previous DVT or PE. Mother had history of PE. Social history: Quit smoking 2012, no recent travel or immobilization. General Appearance: Alert and conversant, cooperative. Eyes: No scleral icterus. ENT, Mouth: Normal mucous membranes. Respiratory: Bilateral expiratory wheezing and slightly tachypneic. Cardiovascular: Regular rate and rhythm. Gastrointestinal: Abdomen is soft and non tender. Neurological: Alert and oriented x3. Normally conversant. Face symmetric, normal movement and sensation in all extremities. Skin: Warm and dry, no rashes. Musculoskeletal: No peripheral edema and no joint swelling. No calf tenderness. Psychiatric: Not agitated. Emergency Department course/MDM: Patient is coughing and has clinical exacerbation of his COPD with wheezing. I think ACS or pulmonary embolism or pneumonia are unlikely. Solu-Medrol 125, magnesium 2 g, multiple nebulizers. 2148: 93% on 2 L nasal cannula, still has expiratory wheezing. 2 additional albuterol nebulizers, plan to treat until 3 hours after his steroids, then make a disposition based on oxygen saturation. That would be around 11:30 p.[address]. Signed out to Dr. Harrington at 2200 with plan for clinical disposition as outlined above. (Yuval Clancy) Constitutional: Initial Vital Signs Temperature (C) 36.8 C 10/22/16 19:27 Heart Rate 107 H 10/22/16 19:27 Respiratory Rate 16 10/22/16 19:27 Blood Pressure 130/101 H 10/22/16 19:27 O2 Sat (%) 89 L 10/22/16 19:27 O2 Delivery Mode Room Air Allergies/Adverse Reactions: Penicillins Allergy (Verified 06/05/16 19:43) Sulfa (Sulfonamide Antibiotics) Allergy (Verified 06/05/16 19:43) Home Medications: Medication Instructions Recorded Albuterol 08/24/16 Xanax 0.25 MG (*) 08/24/16 predniSONE [prednisone 20mg (RX)] 20 mg PO Q12 #15 tab 10/22/16 Medical Decision Making ED Course/Re-evaluation: 2351: I did re-evaluate the patient is satting 92% on room air he is requesting be discharged home. He states this is baseline oxygen saturation. He denies any chest pain or shortness of breath. I did re-evaluate his lungs they are clear on exam. He is requesting prednisone for the next 5 days. He understands return emergency room if develops any worsening symptoms includes shortness of breath, chest pain. (Osman Harrington) Differential Diagnosis: Differential diagnosis considered for shortness of breath including but not limited to pulmonary infectious process, COPD, asthma, pulmonary embolus and congestive heart failure. (Yuval Clancy) - Data Points Medications Given: Discontinued Medications Albuterol (Proventil Neb) 3 ml IH EDNOW ONE Stop: 10/22/16 20:34 Last Admin: 10/22/16 20:58 Dose: 3 ml Albuterol (Proventil Neb) 3 ml IH EDNOW ONE Stop: 10/22/16 21:57 Last Admin: 10/22/16 22:01 Dose: 3 ml Albuterol (Proventil Neb) 3 ml IH EDNOW ONE Stop: 10/22/16 21:57 Last Admin: 10/22/16 22:01 Dose: 3 ml Albuterol/Ipratropium (Duoneb) 3 ml IH EDNOW ONE Stop: 10/22/16 20:34 Last Admin: 10/22/16 20:58 Dose: 3 ml Magnesium Sulfate (Magnesium Sulf 2 Gm (Premix)) 50 mls @ 50 mls/hr IV EDNOW ONE Stop: 10/22/16 21:32 Last Admin: 10/22/16 20:58 Dose: 50 mls Methylprednisolone Sodium Succinate (Solu-Medrol) 125 mg IVP EDNOW ONE Stop: 10/22/16 20:34 Last Admin: 10/22/16 20:59 Dose: 125 mg Departure - Departure Disposition: Home, Routine, Self-Care Clinical Impression: Chronic obstructive pulmonary disease with acute exacerbation Condition: Good Instructions: COPD (Chronic Obstructive Pulmonary Disease) (ED) Referrals: Purnima Schwab MD [Primary Care Provider] - As per Instructions Kvng Grossman MD [Medical Doctor] - As per Instructions Prescriptions: predniSONE [prednisone 20mg (RX)] 20 mg PO Q12 #15 tab
[2016-10-22 23:58] VITALS: RESP 28
[2016-10-23 00:13] VITALS: BP 110/89; PULSE 104; O2SAT 90
== END 2016-10-23 00:15 | disposition home or self-care (01) ==
DX: J44.1 Chronic obstructive pulmonary disease with (acute) exacerbation (principal); Z87.891 Personal history of nicotine dependence
CPT/HCPCS: 96365

== ENCOUNTER 2017-04-30 12:39 | Emergency (ER) | payer OTHER ==
--- NOTE | 2017-04-30 13:21 | EDPHY ---
H & P Time Seen by Provider: 04/30/17 12:59 HPI/ROS: CHIEF COMPLAINT: "I am having a COPD exacerbation" HISTORY OF PRESENT ILLNESS: The patient is a 76-year-old male who presents emergency department mild shortness of breath. He states a few weeks ago he was diagnosed with the flu. He took Tamiflu. He then took a prednisone Dosepak. Patient has been feeling better. Last week he was able to"race walk" 4 times. On Friday he exercise and race walk. He felt short of breath after this exercise. This felt like his typical COPD. He took his albuterol inhaler and his symptoms improved. He went saw his primary care physician on Friday. He was started on Flovent (this prescription had ran out previously) and he was told to take his rescue dose inhaler as needed. The patient presents today because he has continued to require his rescue dose inhaler approximately rib 4 hr while awake. He has had no chest pain. No fevers or chills. No worsening cough. No leg pain or swelling. He feels as though his flu symptoms have completely resolved. REVIEW OF SYSTEMS: My complete review of systems is negative except as mentioned in the HPI. Past Medical/Surgical History: Includes COPD, kidney stone, BPH Past surgical history: Cervical spine surgery, appendectomy, kidney stone removal The social history: Patient does not smoke Smoking Status: Former smoker Physical Exam: Vitals noted GENERAL: Well-appearing, in no acute distress, alert. HEENT: Eyes normal to inspection, normal pharynx, no signs of dehydration. NECK: No thyromegaly, no lymphadenopathy, supple. RESPIRATORY: Clear to auscultation bilaterally, no rales, rhonchi or wheezing. CVS: Regular rate and rhythm, no rubs, murmurs, or gallops. ABDOMEN: Soft, nontender, nondistended, no organomegaly. BACK: Normal to inspection, no CVA tenderness. SKIN: Normal color, no rash, warm, dry. No pallor. EXTREMITIES: No pedal edema, no calf tenderness, no Homans sign or cords, no joint swelling. NEURO/PSYCH: Alert and oriented x3, normal mood and affect, normal motor sensory exam. No obvious cranial nerve deficit. Constitutional: Initial Vital Signs Temperature (C) 36.5 C 04/30/17 12:43 Heart Rate 100 04/30/17 12:43 Respiratory Rate 20 04/30/17 12:43 Blood Pressure 140/94 H 04/30/17 12:43 O2 Sat (%) 92 04/30/17 12:43 O2 Delivery Mode Room Air Allergies/Adverse Reactions: Penicillins Allergy (Verified 04/30/17 12:42) Sulfa (Sulfonamide Antibiotics) Allergy (Verified 04/30/17 12:42) Home Medications: Medication Instructions Recorded Albuterol 08/24/16 Xanax 0.25 MG (*) 08/24/16 predniSONE [prednisone 20mg (RX)] 20 mg PO Q12 #15 tab 10/22/16 Medical Decision Making - Diagnostics Imaging Results: Imaging Impressions Chest X-Ray 04/30/17 13:28 Impression: Underlying COPD and central bronchitis, without acute cardiopulmonary abnormality.. ED Course/Re-evaluation: In the emergency department patient appeared well. He had no respiratory distress. His O2 saturation in triage was 92%. When he was in the room his oxygen saturation was 98%. I discussed possible etiologies with the patient. Chest x-ray was ordered. Chest x-ray: Please refer the dictated report. COPD with underlying bronchitis. Discussed results with the patient. I answered all his questions. The patient has a prescription currently for a prednisone Dosepak. I instructed to take this prednisone Dosepak. He will follow up with primary care physician. He was given warnings prior to leaving. Differential Diagnosis: My differential includes but is not limited to COPD exacerbation, bronchitis, pneumonia, influenza, empyema, PE, ACS Departure - Departure Disposition: Home, Routine, Self-Care Clinical Impression: Chronic obstructive pulmonary disease with acute exacerbation Condition: Good Instructions: COPD (Chronic Obstructive Pulmonary Disease) (ED) Referrals: Purnima Schwab MD [Primary Care Provider] - 2-3 days, if not improved
[2017-04-30 14:54] VITALS: BP 124/91; PULSE 75; RESP 18; TEMP 98.1; O2SAT 95
== END 2017-04-30 14:54 | disposition home or self-care (01) ==
DX: J44.1 Chronic obstructive pulmonary disease with (acute) exacerbation (principal); Z87.891 Personal history of nicotine dependence

== ENCOUNTER 2017-07-01 10:08 | Observation (INO) | payer OTHER ==
[2017-07-01] MEDS ORDERED: NS 1,000 ML IV ONE (10:31)
--- NOTE | 2017-07-01 10:40 | CPEKG ---
Heart Rate: 85 RR Interval: 706 P-R Interval: 156 QRSD Interval: 82 QT Interval: 368 QTC Interval: 438 P Dunlap: 65 QRS Dunlap: -81 T Wave Dunlap: 43 EKG Severity - ABNORMAL ECG - EKG Impression: SINUS RHYTHM EKG Impression: GREGORIA, CONSIDER BIATRIAL ABNORMALITIES EKG Impression: LEFT ANTERIOR FASCICULAR BLOCK Electronically Signed By: Miguel Lorenz 01-Jul-2017 14:45:43
[2017-07-01] MEDS ORDERED: IOPAMIDOL (ISOVUE 370) 100 ML BTL IV ONE (10:43)
[2017-07-01 11:00] LABS: PLATELET COUNT 180 10^3/uL (150-400)
[2017-07-01 11:04] LABS: INR 0.96 (0.83-1.16)
--- NOTE | 2017-07-01 11:43 | EDPHY ---
H & P Time Seen by Provider: 07/01/17 10:13 HPI/ROS: Chief complaint. Speech difficulty HPI. Patient is a 76-year-old male with speech difficulty. Sudden onset about 2 hr ago after exercise. He tells me that suddenly he could not speak in any organized fashion. He had no headache or change in his vision. No chest discomfort. No weakness to arms or legs. His speech is improved but symptoms continue. He has had apparently TIAs and similar symptoms twice in the past. He has not been ill. No shortness of breath or cough. No abdominal pain or vomiting. No urinary symptoms. No fever. ROS Constitutional. no fever/chills, no weakness Eyes. no problems with vision ENT. no sore throat, no nasal drainage Cardiovascular. no chest pain Respiratory. no shortness of breath, no cough Abdominal. no abdominal pain, no nausea/vomiting, no diarrhea . no problems urinating MS. no calf pain/swelling, no neck/back pain, no joint pain Skin. no rash Lymph. no swollen glands Neuro. Speech difficulty Past Medical/Surgical History: Past medical history cervical spine surgery, appendectomy, COPD, kidney stone. Social History: Single, nonsmoker, no alcohol Smoking Status: Former smoker Physical Exam: General Appearance: Alert well-developed male mild distress vital signs significant for blood pressure 134/105 Eyes: Pupils equal and round no pallor or injection. ENT, Mouth: Mucous membranes are moist. Respiratory: There are no retractions, lungs are clear to auscultation. Cardiovascular: Regular rate and rhythm. Gastrointestinal: Abdomen is soft and nontender, no masses, bowel sounds normal. Neurological: Awake and alert, sensory and motor exams grossly normal. Cranial nerves intact. There is no pronator drift. Speech is slightly garbled with some word-finding difficulty Skin: Warm and dry, no rashes. Musculoskeletal: Neck is supple nontender. Extremities symmetrical, full range of motion. Psychiatric: Patient is oriented X 3, there is no agitation. Constitutional: Initial Vital Signs Temperature (C) 36.6 C 07/01/17 10:24 Heart Rate 97 07/01/17 10:24 Respiratory Rate 18 07/01/17 10:24 Blood Pressure 134/105 H 07/01/17 10:24 O2 Sat (%) 98 07/01/17 10:24 O2 Delivery Mode Room Air Allergies/Adverse Reactions: Penicillins Allergy (Verified 07/01/17 10:24) Sulfa (Sulfonamide Antibiotics) Allergy (Verified 07/01/17 10:24) Home Medications: Medication Instructions Recorded NK [No Known Home Meds] 07/01/17 Medical Decision Making - Diagnostics EKG Interpretation: EKG interpreted by me shows normal sinus rhythm normal interval. There is left axis deviation with left anterior fascicular block. QRS otherwise normal there is no significant ST elevation or depression. There is no arrhythmia. The rate is 85 Imaging Results: Imaging Impressions Head CT 07/01/17 10:13 Impression: Negative. No acute intracranial hemorrhage or evidence of acute cortical ischemia. Findings discussed with Emergency Department physician, Dr. Miguel Lorenz on July 01, 2017 at 1030 hours. Head CTA 07/01/17 10:31 Impression: 1. No acute vascular findings. If symptoms persist and clinical suspicion warrants, consider MRI. 2. Minimal increase in multilevel degenerative change in the cervical spine as above. 3. Mild to moderate centrilobular emphysema. 4. Additional findings as above. Stenoses are calculated using [place] Symptomatic Carotid Endarterectomy Trial (NASCET) criteria. Findings discussed with Dr. Miguel Lorenz on 07/01/2017 at 11:32. Neck CTA 07/01/17 10:31 Impression: 1. No acute vascular findings. If symptoms persist and clinical suspicion warrants, consider MRI. 2. Minimal increase in multilevel degenerative change in the cervical spine as above. 3. Mild to moderate centrilobular emphysema. 4. Additional findings as above. Stenoses are calculated using [place] Symptomatic Carotid Endarterectomy Trial (NASCET) criteria. Findings discussed with Dr. Miguel Lorenz on 07/01/2017 at 11:32. Noncontrast head CT is negative. CTA head and neck shows no acute findings. Reviewed by me and discussed with Dr. Brown Procedures: IV normal saline. I-STAT. ED Course/Re-evaluation: Stroke activation is called. Patient immediately goes over to CT for his noncontrast head CT. I consulted discussed case with [facility] who examined the patient. They recommend the perfusion studies and then admission for MRI. Re-evaluation at 11:50 a.m.. The patient and I discussed imaging, EKG, lab results. We discussed recommendations of the [facility] neurologist which is to stay in the hospital for further assessment and treatment. Patient is not sure that he wants to stay. I explained to the patient the risks and benefits of further evaluation in trying to prevent recurrence and the risk of recurrence is fairly high. He is clearly competent to make the decision. Re-evaluation at 12:30 p.m. And patient agrees to admission I consulted discussed case with Dr. Marroquin, hospitalist, who agrees to the admission Differential Diagnosis: It appears the patient had a neurologic event. I considered TIA versus CVA. I considered intracranial hemorrhage. No evidence for large vessel occlusion - Data Points Laboratory Results: Laboratory Results 07/01/17 10:25 07/01/17 10:25 07/01/17 07/01/17 07/01/17 10:32 10:25 10:25 WBC RBC Hgb POC Hgb 17.3 gm/dL gm/dL (13.7-17.5) Hct POC Hct 51 % % (40-51) MCV MCH MCHC RDW Plt Count MPV Neut % (Auto) Lymph % (Auto) Kenton % (Auto) Eos % (Auto) Baso % (Auto) Nucleat RBC Rel Count Absolute Neuts (auto) Absolute Lymphs (auto) Absolute Monos (auto) Absolute Eos (auto) Absolute Basos (auto) Absolute Nucleated RBC Immature Gran % Immature Gran # PT 13.0 SEC SEC (12.0-15.0) INR 0.96 (0.83-1.16) APTT 26.3 SEC SEC (23.0-38.0) POC Sodium 141 mEq/L mEq/L (135-145) Sodium 141 mEq/L mEq/L (135-145) POC Potassium 4.2 mEq/L mEq/L (3.3-5.0) Potassium 4.5 mEq/L mEq/L (3.3-5.0) POC Chloride 100 mEq/L mEq/L (97-110) Chloride 100 mEq/L mEq/L (97-110) Carbon Dioxide 27 mEq/l mEq/l (22-31) Anion Gap 14 mEq/L mEq/L (8-16) POC BUN 14 mg/dL mg/dL (7-23) BUN 14 mg/dL mg/dL (7-23) Creatinine 0.8 mg/dL mg/dL (0.7-1.3) POC Creatinine 0.9 mg/dL mg/dL (0.7-1.3) Estimated GFR Not Reported Glucose 77 mg/dL mg/dL (70-100) POC Glucose 84 mg/dL mg/dL (70-100) Calcium 9.5 mg/dL mg/dL (8.5-10.4) Troponin I < 0.012 ng/mL ng/mL (0.000-0.034) 07/01/17 10:25 WBC 12.63 10^3/uL H 10^3/uL (3.80-9.50) RBC 5.17 10^6/uL 10^6/uL (4.40-6.38) Hgb 16.5 g/dL g/dL (13.7-17.5) POC Hgb Hct 48.7 % % (40.0-51.0) POC Hct MCV 94.2 fL fL (81.5-99.8) MCH 31.9 pg pg (27.9-34.1) MCHC 33.9 g/dL g/dL (32.4-36.7) RDW 13.2 % % (11.5-15.2) Plt Count 180 10^3/uL 10^3/uL (150-400) MPV 9.2 fL fL (8.7-11.7) Neut % (Auto) 59.4 % % (39.3-74.2) Lymph % (Auto) 32.3 % % (15.0-45.0) Kenton % (Auto) 5.9 % % (4.5-13.0) Eos % (Auto) 1.6 % % (0.6-7.6) Baso % (Auto) 0.5 % % (0.3-1.7) Nucleat RBC Rel Count 0.0 % % (0.0-0.2) Absolute Neuts (auto) 7.50 10^3/uL H 10^3/uL (1.70-6.50) Absolute Lymphs (auto) 4.08 10^3/uL H 10^3/uL (1.00-3.00) Absolute Monos (auto) 0.75 10^3/uL 10^3/uL (0.30-0.80) Absolute Eos (auto) 0.20 10^3/uL 10^3/uL (0.03-0.40) Absolute Basos (auto) 0.06 10^3/uL 10^3/uL (0.02-0.10) Absolute Nucleated RBC 0.00 10^3/uL 10^3/uL (0-0.01) Immature Gran % 0.3 % % (0.0-1.1) Immature Gran # 0.04 10^3/uL 10^3/uL (0.00-0.10) PT INR APTT POC Sodium Sodium POC Potassium Potassium POC Chloride Chloride Carbon Dioxide Anion Gap POC BUN BUN Creatinine POC Creatinine Estimated GFR Glucose POC Glucose Calcium Troponin I Medications Given: Discontinued Medications Sodium Chloride (Ns) 1,000 mls @ 0 mls/hr IV ONCE ONE; Wide Open PRN Reason: Protocol Stop: 07/01/17 10:32 Last Admin: 07/01/17 10:43 Dose: 1,000 mls Point of Care Test Results: 07/01/17 10:32 POC Sodium 141 POC Potassium 4.2 POC Chloride 100 POC BUN 14 POC Creatinine 0.9 POC Glucose 84 Departure - Departure Disposition: [facility] Inpatient Acute Clinical Impression: Transient cerebral ischemia Qualifiers: Transient cerebral ischemia type: unspecified Qualified Code(s): G45.9 - Transient cerebral ischemic attack, unspecified Condition: Fair Referrals: Purnima Schwab MD [Primary Care Provider] - As per Instructions
[2017-07-01] MEDS ORDERED: LORazepam 2 MG/ML INJ IVP ONE ×2 (15:04→19:45)
[2017-07-01] MEDS ORDERED: ASPIRIN 81 MG CHEWABLE TAB PO ONE (15:07)
[2017-07-01] MEDS ORDERED: ACETAMINOPHEN 325 MG TAB PO PRN (15:08)
[2017-07-01] MEDS ORDERED: ONDANSETRON 4 MG/2 ML VIAL IVP PRN (15:08)
--- NOTE | 2017-07-01 16:26 | GHP ---
[f rep st] HISTORY AND PHYSICAL DATE OF ADMISSION: 07/01/2017 CHIEF COMPLAINT: Expressive aphasia. HISTORY: The patient is a 76-year-old male, who had 30 minutes of expressive aphasia this morning. He race walks 3 miles every day. Did his usual distance, his heart rate was 140 which sounds like it is pretty usual for him. Went to the coffee shop with a friend after race walking and they sat down at the table, and suddenly he noticed he was unable to speak. He knew what words he wanted stay but could not get any words out. This entire event lasted 30 minutes and had already resolved by the ti me he came to the emergency room. He has had 2 previous similar TIAs in the past. One was 10 years ago, one was 5 years ago. Denies ever being admitted to the hospital for a full workup. He does not take aspirin or statin drug. He came in as a stroke activation and Yuniel Bhagat was consulted. Given c omplete resolution of symptoms, no tPA was indicated. He also states he has been having increasing d izziness and for the last 3 days has felt very dizzy after his usual race walking. They did note blo od pressure at one point to be 80/40 during one of these episodes. PAST MEDICAL HISTORY: 1. TIA x2. 2. COPD. 3. Hypertension. 4. Essential tremor. PAST SURGICAL HISTORY: Lithotripsy with stent, appendectomy, C-spine. MEDICATIONS: Please see computer record for full detailed list. ALLERGIES: To penicillin, sulfa. SOCIAL HISTORY: Quit smoking in 2012, drinks 1 beer per day. Lives alone. His 2 daughters are at [facility]. REVIEW OF SYSTEMS: Complete 10 review of systems negative for constitutional, HEENT, GI, pulmonary, vascular, , hematology, skin, muscular, endocrine, psych. Per positives as noted in HPI. FAMILY HISTORY: Reviewed, noncontributory to presenting complaint. PHYSICAL EXAMINATION: GENERAL: Well-developed, well-nourished male, in no acute distress. VITAL SI GNS: Temperature is 36.1 pulse 83, blood pressure 141/92, saturating 95% on room air. HEENT: Normal conjunctivae. Pupils react to light. ENT: Normal ears, nose. Hearing intact. Normal teeth. Orop harynx moist. NECK: Trachea midline. No thyromegaly. CHEST: Normal effort. LUNGS: Clear to auscul tation bilaterally. CARDIOVASCULAR: Regular rhythm. No murmur. No lower extremity edema. ABDOMEN: Soft, nontender. No hepatosplenomegaly. SKIN: Warm, dry, intact. No rash. MUSCULOSKELETAL: No cyanosis or clubbing. Strength 5/5 upper and lower extremities. NEUROLOGIC: Cranial nerves intact. Normal sensation to light touch. PSYCH: Alert and oriented x3. Normal mood and affect. Normal j udgment. Normal memory. LABORATORY DATA: White count 12.6, hematocrit 48.7, platelets 180. Sodium 141, potassium 4.5, chlor moise 100, bicarb 27, BUN 14, creatinine 0.8, glucose 71 troponins negative. INR 0.96. EKG viewed by me, my personal interpretation is normal sinus rhythm. No ST-T wave changes. Head CT is negative. CT angiogram of the head and neck is negative. ASSESSMENT/PLAN: 1. Transient ischemic attack. We will start him on aspirin and check a lipid panel in the morning. We will check MRI of the brain and echocardiogram as well as overnight cardiac monitoring. We will consult Neurology to see him tomorrow morning. 2. Dizziness after exercise. At one point, had a recorded low blood pressure 80/40 and wonder if he may be getting dehydrated will monitor blood pressure and tele monitor here. Could consider an outp atient Holter. 3. Chronic obstructive pulmonary disease. He quit smoking in 2012 and does not have any problems wi th his respirations in between viral infections. 4. Essential tremor. At one point, there was concern he may have Parkinson disease but he states th at has been ruled out. CODE STATUS: Full. ADMISSION STATUS: Will admit to observation. Reevaluate tomorrow regarding ongoing hospitalization. DVT PROPHYLAXIS: He is high risk. Will place on subcu Lovenox. /[id number]/MODL
--- NOTE | 2017-07-01 16:48 | ECHO ---
[email or web address] [address] [address] Main: [phone] Fax: Transthoracic Echocardiogram Name: JULIANN MCGHEE MR#: [id number] Study Date: 07/01/2017 Study Time: 03:22 PM Date of : 1940 Age: 76 year(s) Height: 180.3 cm (71 in.) Weight: 74.84 kg (165 lb.) BSA: 1.94 m2 Gender: Male Examination: Echo Indication: TIA, Aphasia Image Quality: Contrast: Requested by: Sarah Marroquin BP: 141 mmHg/92 mmHg Heart Rate: Rhythm: Normal sinus rhythm Indication: TIA, Aphasia Procedure Staff [employer] Feather Driller: Wenceslao Tolentino RDCS Reading Physician: Zion Del Valle MD Requesting Provider: Conclusions: Normal size left ventricle. No LV hypertrophy. Normal global systolic LV function. EF is 65 %. No regional wall motion abnormality. Diastolic dysfunction is present. . Normal size right ventricle. The left atrium is normal in size. An agitated saline study was performed and was negative for intracardiac shunting. The right atrium is normal in size. The mitral valve is normal in appearance and function. The pulmonic valve is normal in appearance and function. Measurements: Chambers Valvular Assessment AV/MV Valvular Assessment TV/PV Normal Normal Normal Name Value Range Name Value Range Name Value Range Ao Bri (MM): 3.2 cm (2.2 cm-3.7 AV Vmax: 0.91 m/s (1 m/s-1.7 PV Vmax: 0.72 m/s (0.6 m/s-0.9 cm) m/s) m/s) IVSd (2D): 1.0 cm (0.6 cm-1.1 AV maxP mmHg ( - ) PV PGmax: 2 mmHg ( - ) cm) LVOT Vmax: 0.82 m/s (0.7 m/s-1.1 LVDd (2D): 4.4 cm (4.2 cm-5.9 m/s) cm) MV E Vmax: 0.45 m/s ( - ) LVDs (2D): 2.8 cm (2.1 cm-4 MV A Vmax: 0.67 m/s ( - ) cm) MV E/A: 0.67 ( - ) LVPWd (2D): 1.0 cm (0.6 cm-1 cm) LVEF (2D): 65 (>=54 %) Continued Measurements: Patient: JULIANN MCGHEE Study Date: 07/01/2017 Page 1 of 2 03:22 PM Chambers Valvular Assessment AV/MV Name Value Name Value LADs Lon.7 cm MV E' Septal: 0.05 m/s LA Area: 13.2 cm2 MV E/E' Septal: 9.40 LA Volume: 41 ml MV E/E' Lateral: 7.20 LA Volume Index: 21.1 ml/m2 Findings: Left Ventricle: Normal size left ventricle. No LV hypertrophy. Normal global systolic LV function. EF is 65 %. No regional wall motion abnormality. Diastolic dysfunction is present. . Right Ventricle: Normal size right ventricle. Left Atrium: The left atrium is normal in size. An agitated saline study was performed and was negative for intracardiac shunting. Right Atrium: The right atrium is normal in size. Mitral Valve: The mitral valve is normal in appearance and function. Aortic Valve: The aortic valve is normal in appearance and function. Tricuspid Valve: The tricuspid valve is normal in appearance and function. Pulmonic Valve: The pulmonic valve is normal in appearance and function. Aorta: The aorta is normal. Pericardium: No pericardial effusion. (No Signature Object) Patient: JULIANN MCGHEE Study Date: 07/01/2017 Page 2 of 2 03:22 PM [id number]
[2017-07-02 05:38] LABS: PLATELET COUNT 152 10^3/uL (150-400)
[2017-07-02] MEDS ORDERED: ASPIRIN 81 MG CHEWABLE TAB PO SCH (09:00)
[2017-07-02] MEDS ORDERED: ENOXAPARIN 40 MG/0.4 ML SYR SC SCH (09:00)
--- NOTE | 2017-07-02 10:55 | GCON ---
[f rep st] CONSULTATION NEUROLOGY CONSULTATION REFERRING PHYSICIAN: Sarah Marroquin MD CHIEF COMPLAINT: Transient ischemic attack. HISTORY OF PRESENT ILLNESS: Mr. Cedeño is a very pleasant 76-year-old gentleman who has a past medical history of 2 identical events spanning around 10 years ago, and then the 2nd event occurring 5-8 years ago, and the 3rd event occurring yesterday. They all have occurred probably after his sport of choice , race walking. The patient went race walking yesterday with a friend and then had coffee with her, when he had sudden onset expressive language dysfunction. He knew the words he wanted to say, but could not get them out. He had no problems with comprehension. No sensory or motor symptoms. Specifically, no right face, arm and leg numbness or weakness. There was pure expressive aphasia for 30 minutes with spontaneous resolution. He came into the emergency department under a stroke alert and was seen by telemedicine, who did not recommend thrombolysis, as the symptoms had completely resolved by the time he was in the ED. He had a CTA of the head and neck which showed no acute findings. Specifically, no clots , dissection, or any other acute findings. The patient then had a followup MRI brain, which fortunately showed no acute infarct. There were no other significant findings. There were expected age-related findings, but otherwise negative. He had an echocardiogram yesterday as well, in the afternoon, which showed an ejection fraction of 65%. He has no LV hypertrophy. His left atrium is normal in size. Agitated saline study was performed and was negative for intracardiac shunting. The right atrium was also normal in size. He denies palpitations. He had been worked up previously for the 2 previous events, including a Holter monitor. He had fasting lipids this morning which showed a total cholesterol 157, an LDL of 87, HDL 54. He did not have any headaches with any of these 3 events. No personal or family history of migraines. No epilepsy risk factors. REVIEW OF SYSTEMS: Ten-point review of systems was done, only pertinent per the HPI. PAST MEDICAL HISTORY/SOCIAL HISTORY/FAMILY HISTORY/HOME MEDICATIONS/ALLERGIES: Please see Dr. Marroquin' history and physical dated 07/01/2017. PHYSICAL EXAMINATION: VITAL SIGNS: Blood pressure is 108/78, temperature 36.7 , respirations 16, O2 saturation 95%. GENERAL: The patient is awake, alert, very pleasant. NEUROLOGIC: On higher mental function, he named 5/5, follows commands 5/5, repeats 5/5. No aphasia. CRANIAL NERVES: Exam normal 2 through 7, 11, and 12. MOTOR: The patient has normal strength and tone throughout. No rigidity. SENSORY: Normal to light touch in all 4 extremities. COORDINATION: Normal in all 4 extremities. He does have some mild essential tremor in the upper extremities with extension of his arms. IMPRESSION AND PLAN: 1. Transient ischemic attack. The patient had 30 minutes of pure expressive aphasia with spontaneous resolution. This would best fit with a left hemisphere transient ischemic attack. It is somewhat atypical that he has had 3 of these events which were fairly stereotyped over 10+ years without completing an infarct. We discussed at length. I also do note he has had some dizziness lately after race walking and has checked his blood pressure afterwards, where it tends to be 80 over 60s when he is dizzy. We discussed that dehydration may have a role in terms of mechanism. Specifically, if he became modestly hypotensive, he could have focal neurologic symptoms based on his vascular anatomy. In retrospect, he thinks all 3 events did occur right after race walking. He also admits that he is not staying well hydrated. Going forward, I recommend that he stay well hydrated and make sure he is up on his electrolytes as well when he is being physical active. He is agreeable. However, I think we need to treat this further as a TIA. Specifically, I have asked him to start aspirin 325 mg daily, coated, with meals, along with statin therapy, as his LDL is above 70, in light of TIA/stroke symptoms. He is agreeable. We discussed potential risks, benefits, and alternatives of these medications. If he develops excessive bleeding or bruising on full-dose aspirin , he could reduce it to an 81 mg dose daily. He is agreeable. I also recommend a 30-day event monitor and follow up with Cardiology. If the 30-day event monitor is negative, then consideration for an implantable air sampling and monitoring would be recommended. Finally, I will arrange for followup with me in 8 weeks to review all of the above to ensure he is completing his TIA workup. Certainly, we could also address his benign tremor as we follow him down the line. No further recommendations now. The patient, from my view, could discharge later today. We will sign off and follow up as needed. Please do not hesitate to call if there are any questions or change in neurologic status with this very pleasant patient. Seventy total minutes floor time reviewing records, angiography, MRI brain, counseling the patient and coordination of care. /[id number]/MODL MTDD
--- NOTE | 2017-07-02 11:32 | ASMTCMCOM ---
CM Note CM Note Notes: Patient chart reviewed. 76 year old male admitted through ED with complaints of inability to speak for about 30 minutes. he reports previous TIA's . His workup has essentially been negative and he has been medically cleared for discharge to home. No needs identified. CM available should needs arise. Plan: Home independently Date Signed: 07/02/2017 11:31 AM Electronically Signed By:Oma Cardoso RN
[2017-07-02 11:37] VITALS: BP 138/84
--- NOTE | 2017-07-03 09:16 | GDS ---
[f rep st] DISCHARGE SUMMARY SERVICE: [facility] Hospitalist. H and P: please see previously dictated note by Dr. Marroquin. ADMISSION DIAGNOSIS: Transient ischemic attack. DISCHARGE DIAGNOSIS: Transient ischemic attack. CONSULTS: Neurology, Dr Spenser Huntley PROCEDURES: Brain MRI, neck CTA, head CTA, head CT, echocardiogram. PRIMARY CARE PROVIDER: Purnima Schwab MD. HOSPITAL COURSE: The patient came to the emergency department after having an episode of difficulty talking that lasted for about 30 minutes. He has had 2 previous similar TIAs many years ago, one episode 10 years ago, one episode 5 years ago. When he came into the emergency department a stroke activation code was called and [facility] was consulted. By that time, his symptoms were resolving, so tPA was not indicated. He was admitted to the hospital overnight for further evaluation and observation. He had a brain MRI that showed mild age-related cerebral atrophy but no acute infarct, hemorrhage or mass effect. He had a neck CTA which showed no acute vascular findings (he does have mild to moderate central lobar emphysema and some cervical spine mild- to-moderate spinal canal narrowing with severe foraminal stenosis). He also had an echocardiogram, which showed no LV hypertrophy, EF of 65%. No regional wall abnormality, diastolic dysfunction present. No intracardiac shunting. Dr. Huntley evaluated patient on the morning of discharge and felt that history and exams were consistent with a TIA. He recommended increasing anti-platelet therapy to a full-dose aspirin, starting statin medication as his LDL was 87 with a goal of less than 70, and also having a 30 day event monitor after discharge to ensure that there are no cardiac arrhythmias. He would like to see him in the office in about 8 weeks or sooner if he has any further issues. He is going to be discharged home in good condition. Discharge instructions were discussed with him extensively and copies of his studies were requested and given to him. DISCHARGE MEDICATIONS: New prescription for atorvastatin 10 mg and aspirin 325 mg, both are once daily. He can continue all his previous home medications at current dosing, which include ibuprofen as needed, albuterol as needed, prednisone as needed, diclofenac gel as needed (he is going to request a new prescription for this from his primary care provider). DISCHARGE INSTRUCTIONS: He should contact [facility] or have his primary care provider contact [facility] to set up his 30 day event monitor. He should call Dr. Huntley's office to set up a followup appointment in 8 weeks. He should call Dr. Purnima Schwab, his primary care provider, to set up an appointment within the next 3-7 days. If at any time he has acute onset of neurological symptoms or other concerns, he should return immediately to the emergency department for evaluation. !! Please note other CT findings above re lungs and spinal stenosis. These were NOT addressed at this hospitalization and are deferred to PCP for follow up as needed. /[id number]/MODL MTDD
== END 2017-07-02 13:37 | disposition home or self-care (01) ==
LOC: INTOOBSV 12:34 → F3N 13:35
PROVIDERS: ADMIT Internal Medicine; ATTEND Family Medicine
DX: G45.9 Transient cerebral ischemic attack, unspecified (principal); R29.700 NIHSS score 0; E86.9 Volume depletion, unspecified; I10 Essential (primary) hypertension; G25.0 Essential tremor; M48.02 Spinal stenosis, cervical region; J44.9 Chronic obstructive pulmonary disease, unspecified; Z87.442 Personal history of urinary calculi; Z87.891 Personal history of nicotine dependence; Z86.73 Personal history of transient ischemic attack (TIA), and cerebral infarction without residual deficits; Z88.0 Allergy status to penicillin; Z88.2 Allergy status to sulfonamides
CPT/HCPCS: 70450; 70496; 70498; 70551; 92523; 93005; 93306; 96360; 99285; G0378; J1650; J2060; Q9967; 82947-QW

== ENCOUNTER 2017-08-19 04:33 | Inpatient (IN) | payer OTHER ==
--- NOTE | 2017-08-19 04:34 | EDPHY ---
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 Patient states around 10:00 p.m. He noticed this right lower quadrant pain dull ache constant. Additionally reports that it lasted all night it is now 5:00 a.m.. He denies any dysuria or blood in his urine. He states he has had this pain before when he had a ureteral stricture. Additionally he has had kidney stones. Describes the pain is 8/10 right lower quadrant dull ache nonradiating. Denies testicular pain or urinary symptoms. Denies chest pain or shortness of breath. It is noted upon arrival to the emergency room is tachycardic in the 130s. Complaining of right lower quadrant pain. Past Medical History: BPH, TIA, COPD/emphysema not on oxygen Past Surgical History: History for cervical fusion, her history of ureteral stricture surgery, history of kidney stone, an appendectomy at age 6 Social History: Denies daily use of tobacco or drugs. Does drink alcohol daily. Lives locally in [place]. Family History: Noncontributory ROS REVIEW OF SYSTEMS: A comprehensive 10 point review of systems is otherwise negative aside from elements mentioned in the history of present illness. Exam Constitutional elderly, nontoxic triage nursing summary reviewed, vital signs reviewed, awake/alert. Eyes normal conjunctivae and sclera, EOMI, PERRLA. HENT tachycardic, atraumatic, moist mucus membranes, no epistaxis, neck supple / no meningismus, no raccoon eyes. Respiratory clear to auscultation bilaterally, normal breath sounds, no respiratory distress, no wheezing. Cardiovascular rate normal, regular rhythm, no murmur, no edema, distal pulses normal. Gastrointestinal mild tender palpation right lower quadrant, no rebound, no guarding, normal bowel sounds, no distension, no pulsatile mass. Genitourinary no CVA tenderness. Musculoskeletal no midline vertebral tenderness, full range of motion, no calf swelling, no tenderness of extremities, no meningismus, good pulses, neurovascularly intact. Skin pink, warm, & dry, no rash, skin atraumatic. Neurologic awake, alert and oriented x 3, AAOx3, moves all 4 extremities equally, motor intact, sensory intact, CN II-XII intact, normal cerebellar, normal vision, normal speech. Psychiatric normal mood/affect. Heme/Lymph/Immune no lymphadenopathy. Differential diagnosis includes but is not limited to and in no particular order : Bowel obstruction, gallbladder disease, diverticulitis, colitis, enteritis, perforated viscus, gastritis, GERD, esophagitis, urinary tract infection, pyelonephritis, kidney stones Medical Decision Making: Plan for this patient IV establishment full range go labs including lactic acid, EKG due to tachycardia, chest x-ray, CT scan abdomen pelvis with IV contrast to help delineate the lower abdominal pain. Re-evaluation: EKG interpretation by me on record in Payment plugin system. Impression time of EKG 5:11 a.m., sinus tachycardia rate of 124, very similar morphology to previous EKG dated 07/01/2017. There is no ST elevation. Q-waves noted through V1 V2 V3. Similar to previous EKG. 0540: Blood work is reviewed he does have a leukocytosis, urinalysis additionally reviewed shows infection. Urine culture will be sent. Will obtain blood cultures. 1 g Rocephin will be given. CT scan abdomen pelvis with IV contrast called to me by Dr. Garcia, this shows severe hydroureter on the right side with some mild right perinephric stranding, narrowing at the UVJ junction. No kidney stone of appreciated. Given the patient's urinalysis, perinephric stranding on the right side, severe ureteral stricture and concern for sepsis with a high white count, elevated lactic acid, urine looks infected will obtain blood cultures, he will receive a 2 L fluid bolus, additionally IV Rocephin. Patient need to be admitted the hospital. I will consult Urology as well. Will repeat lactic acid. 0614AM: Patient on a 2nd L fluid. Heart rate is currently 120 blood pressure stable 102/74. Clinically most likely this patient has pyelonephritis with the ureteral stricture hydroureter. 0616: I spoke with Dr. Dennison, urology. They will plan on consulting the patient. He does recommend that I consult IR. For for drainage of this significant hydroureter and distal ureteral obstruction. 0615: Additionally spoke with Dr. Duran, who agrees to admit the patient. 0706: Repeat lactic acid is down to 1. Patient getting 3rd L fluid. Patient to be admitted to the step-down unit for close monitoring. Heart rate is currently 106, blood pressure 102/62. 0706: Attempted to contact Interventional Radiology for percutaneous nephrostomy tube. Multiple attempts have been made to contact them unable to get all night at this time. Updated the hospitalist service. Critical Care: Total Critical Care Time Spent Managing this Patient: 65 Minutes. This time was spent Exclusively with this patient. This Care was exclusive of procedures. The Organ System/life at risk was UTI with sepsis This Patient was in Critical Condition because UTI with sepsis 0717: Updated the hospitalist service they will continue to get a hold of IR. Will place a stat consult. Patient at this time hemodynamically stable will go to step-down unit/ICU for UTI with sepsis. Urology as been consult. As well as hospitalist medicine. 2 g IV Rocephin given 3 L of IV fluids. Blood cultures, urine culture lactic acid is trended down. Blood pressure stable and heart rate is coming down from the 130s to 106. He was febrile 39 degrees received Tylenol Motrin. I did update his daughter at bedside. Source: Patient, EMS - Medical/Surgical History Hx Asthma: No Hx Chronic Respiratory Disease: Yes Hx Diabetes: No Hx Cardiac Disease: No Hx Renal Disease: No Hx Cirrhosis: No Hx Alcoholism: No Hx HIV/AIDS: No Hx Splenectomy or Spleen Trauma: No Other PMH: 05/19/12 cervical spinal surgery 05/31, [place], BPH, COPD,Kidney stone removed 2016, kidney problems (seeing urologist friday), possible parkinsons - Social History Smoking Status: Former smoker Constitutional: Initial Vital Signs Temperature (C) 37.3 C 08/19/17 04:39 Heart Rate 137 H 08/19/17 04:39 Respiratory Rate 18 08/19/17 04:39 Blood Pressure 141/106 H 08/19/17 04:39 O2 Sat (%) 93 08/19/17 04:39 O2 Delivery Mode Nasal Cannula O2 (L/minute) 2 Allergies/Adverse Reactions: Penicillins Allergy (Verified 08/19/17 04:43) Sulfa (Sulfonamide Antibiotics) Allergy (Verified 08/19/17 04:43) Home Medications: Medication Instructions Recorded Albuterol [Proventil Inhaler HFA 1 - 2 puffs IH DAILY PRN 07/01/17 (*)] Diclofenac Sodium 1% [Voltaren Gel 1 shari TP DAILY PRN 07/01/17 (*)] Herbals/Supplements -Info Only 1 each PO DAILY 07/01/17 predniSONE 40 mg PO AD PRN 07/01/17 Aspirin [Aspirin 325 mg (*)] 325 mg PO DAILY #30 tab 07/02/17 Atorvastatin Calcium [Lipitor 10 10 mg PO DAILY #30 tab 07/02/17 mg (*)] Silodosin [Rapaflo] 8 mg PO DAILY #30 capsule 08/22/17 Medical Decision Making - Data Points Laboratory Results: Laboratory Results 08/19/17 04:45 08/19/17 04:45 Medications Given: Acetaminophen (Tylenol) 650 mg PO Q4HRS PRN PRN Reason: Pain, Mild/Fever, Can Take PO Stop: 02/15/18 06:12 Last Admin: 08/22/17 14:04 Dose: 650 mg Albuterol/Ipratropium (Duoneb) 3 ml IH QID PRN PRN Reason: Short of Breath/Dyspnea Stop: 02/18/18 12:08 Last Admin: 08/23/17 18:27 Dose: 3 ml Aspirin Buffered (Aspirin Ec) 325 mg PO DAILY [facility] Stop: 02/17/18 11:29 Last Admin: 08/23/17 08:20 Dose: 325 mg Diazepam (Valium) 2 mg PO Q6HRS PRN PRN Reason: for bladder spasm Stop: 02/19/18 17:28 Last Admin: 08/23/17 20:23 Dose: 2 mg Vancomycin HCl 750 mg/ (Dextrose) 165 mls @ 165 mls/hr IV Q12H KENNETH PRN Reason: Protocol Stop: 09/22/17 21:59 Last Admin: 08/23/17 22:23 Dose: 165 mls Ibuprofen (Motrin) 600 mg PO Q6HRS PRN PRN Reason: Pain, Mild Stop: 02/18/18 15:09 Last Admin: 08/23/17 17:24 Dose: 600 mg Oxycodone HCl (Oxycodone Ir) 5 mg PO Q4HRS PRN PRN Reason: Pain, Severe Able to Take PO Stop: 08/29/17 23:28 Last Admin: 08/19/17 23:52 Dose: 5 mg Phenazopyridine HCl (Pyridium) 200 mg PO PC PRN PRN Reason: dysuria Stop: 02/19/18 18:59 Last Admin: 08/23/17 17:17 Dose: 200 mg Tamsulosin HCl (Flomax) 0.4 mg PO HS [facility] Stop: 02/17/18 20:59 Last Admin: 08/23/17 22:24 Dose: Not Given Discontinued Medications Acetaminophen (Tylenol) 1,000 mg PO EDNOW ONE Stop: 08/19/17 06:22 Last Admin: 08/19/17 06:22 Dose: 1,000 mg Albuterol/Ipratropium (Duoneb) 3 ml IH QID [facility] Stop: 02/16/18 11:59 Last Admin: 08/22/17 11:31 Dose: Not Given Enoxaparin Sodium (Lovenox) 40 mg SC DAILY [facility] Stop: 02/16/18 09:29 Last Admin: 08/21/17 08:31 Dose: 40 mg Hydromorphone HCl (Dilaudid) 0.5 mg IVP EDNOW ONE Stop: 08/19/17 04:43 Last Admin: 08/19/17 04:58 Dose: 0.5 mg Sodium Chloride (Ns) 1,000 mls @ 0 mls/hr IV EDNOW ONE; Wide Open PRN Reason: Protocol Stop: 08/19/17 04:43 Last Admin: 08/19/17 05:01 Dose: 1,000 mls Ceftriaxone Sodium/Dextrose (Rocephin 1 Gm (Premix)) 50 mls @ 100 mls/hr IV EDNOW ONE PRN Reason: Protocol Stop: 08/19/17 06:07 Last Admin: 08/19/17 05:59 Dose: 50 mls Sodium Chloride (Ns) 1,000 mls @ 0 mls/hr IV ONCE ONE PRN Reason: Wide Open Stop: 08/19/17 05:41 Last Admin: 08/19/17 06:00 Dose: 1,000 mls Ceftriaxone Sodium/Dextrose (Rocephin 1 Gm (Premix)) 50 mls @ 100 mls/hr IV EDNOW ONE PRN Reason: Protocol Stop: 08/19/17 06:42 Last Admin: 08/19/17 06:21 Dose: 50 mls Sodium Chloride (Ns) 1,000 mls @ 0 mls/hr IV ONCE ONE PRN Reason: Wide Open Stop: 08/19/17 06:45 Last Admin: 08/19/17 06:44 Dose: 1,000 mls Sodium Chloride (Ns) 1,000 mls @ 50 mls/hr IV CONT KENNETH Stop: 02/15/18 08:29 Last Admin: 08/22/17 16:28 Dose: 1,000 mls Sodium Chloride (Ns) 500 mls @ 0 mls/hr IV ONCE ONE PRN Reason: Wide Open Stop: 08/19/17 09:02 Last Admin: 08/19/17 10:23 Dose: 500 mls Albumin Human (Flexbumin 25 % (Premix)) 100 mls @ 0 mls/hr IV ONCE ONE PRN Reason: As Directed Stop: 08/19/17 09:03 Last Admin: 08/19/17 09:17 Dose: 100 mls Norepinephrine 4 mg/ Sodium (Chloride) 504 mls @ 0 mls/hr IV CONT KENNETH; Per Protocol PRN Reason: Protocol Stop: 02/15/18 15:59 Last Admin: 08/20/17 22:50 Dose: 504 mls Albumin Human (Alburx 5) 500 mls @ 0 mls/hr IV ONCE ONE PRN Reason: As Directed Stop: 08/19/17 19:31 Last Admin: 08/19/17 20:35 Dose: Not Given Vancomycin/Sodium Chloride (Vancomycin 1 Gm (Premix)) 250 mls @ 250 mls/hr IV Q12H KENNETH PRN Reason: Protocol Stop: 09/18/17 20:59 Last Admin: 08/20/17 08:36 Dose: 250 mls Albumin Human (Alburx 5) 500 mls @ 0 mls/hr IV ONCE ONE PRN Reason: As Directed Stop: 08/20/17 04:31 Last Admin: 08/20/17 06:39 Dose: Not Given Vancomycin HCl 1.5 gm/ (Dextrose) 250 mls @ 166.67 mls/hr IV Q12H KENNETH PRN Reason: Protocol Stop: 09/19/17 20:59 Last Admin: 08/23/17 10:21 Dose: Not Given Sodium Chloride (Ns) 1,000 mls @ 0 mls/hr IV ONCE ONE PRN Reason: Wide Open Stop: 08/20/17 23:57 Last Admin: 08/21/17 00:11 Dose: 1,000 mls Ibuprofen (Motrin) 800 mg PO EDNOW ONE Stop: 08/19/17 06:22 Last Admin: 08/19/17 06:22 Dose: 800 mg Ibuprofen (Motrin) 600 mg PO ONCE ONE Stop: 08/21/17 17:31 Last Admin: 08/21/17 17:45 Dose: 600 mg Lorazepam (Ativan) 0.5 mg PO Q6HRS PRN PRN Reason: Anxiety Stop: 02/15/18 23:29 Last Admin: 08/22/17 20:44 Dose: 0.5 mg Ondansetron HCl (Zofran) 4 mg IVP EDNOW ONE Stop: 08/19/17 04:43 Last Admin: 08/19/17 04:57 Dose: 4 mg Departure - Departure Disposition: [facility] Acute Clinical Impression: Pyelonephritis, Ureteral stricture, Hydroureter, Sepsis secondary to UTI UTI (urinary tract infection) Qualifiers: Urinary tract infection type: acute cystitis Hematuria presence: with hematuria Qualified Code(s): N30.01 - Acute cystitis with hematuria Condition: Serious
[2017-08-19] MEDS ORDERED: NS 1,000 ML IV ONE ×3 (04:42→06:44)
[2017-08-19] MEDS ORDERED: HYDROmorphONE/DILAUDID 2 MG/ML INJ IVP ONE (04:42)
[2017-08-19] MEDS ORDERED: ONDANSETRON 4 MG/2 ML VIAL IVP ONE (04:42)
[2017-08-19] MEDS ORDERED: HYDROmorphONE/DILAUDID 1 MG/ML INJ ONE (04:55)
--- NOTE | 2017-08-19 05:13 | CPEKG ---
Heart Rate: 124 RR Interval: 484 P-R Interval: 132 QRSD Interval: 82 QT Interval: 304 QTC Interval: 437 P [place]: 66 QRS [place]: 252 T Wave [place]: 53 EKG Severity - ABNORMAL ECG - EKG Impression: SINUS TACHYCARDIA EKG Impression: GREGORIA, CONSIDER BIATRIAL ABNORMALITIES EKG Impression: CONSIDER RIGHT VENTRICULAR HYPERTROPHY EKG Impression: INFERIOR INFARCT, AGE INDETERMINATE EKG Impression: CONSIDER ANTERIOR INFARCT Electronically Signed By: Osman Harrington 19-Aug-2017 07:05:23
[2017-08-19] MEDS ORDERED: IOPAMIDOL (ISOVUE-300) 100 ML BTL ONE ×2 (05:16→08:43)
[2017-08-19 05:27] LABS: INR 0.9 (0.83-1.16); PROTIME(PATIENT) 12.4 SEC (12.0-15.0)
[2017-08-19 05:33] LABS: PLATELET COUNT 145 10^3/uL (150-400)
[2017-08-19] MEDS ORDERED: ONDANSETRON DISINTEGRATING 4 MG TAB PO PRN (06:13)
[2017-08-19] MEDS ORDERED: ONDANSETRON 4 MG/2 ML VIAL IVP PRN (06:13)
[2017-08-19] MEDS ORDERED: ACETAMINOPHEN 500 MG TAB ONE (06:20)
[2017-08-19] MEDS ORDERED: IBUPROFEN 800 MG TAB PO ONE ×2 (06:20→06:21)
[2017-08-19] MEDS ORDERED: ACETAMINOPHEN 500 MG TAB PO ONE (06:21)
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
[2017-08-19] MEDS ORDERED: MIDAZOLAM 2 MG/2 ML VIAL IVP PRN (08:21)
[2017-08-19] MEDS ORDERED: FLUMAZENIL 0.5 MG/5 ML MDV IVP PRN (08:21)
[2017-08-19] MEDS ORDERED: MEPERIDINE 25 MG/ML SYR IVP PRN (08:21)
[2017-08-19] MEDS ORDERED: fentaNYL 100 MCG/2 ML INJ IVP PRN (08:21)
[2017-08-19] MEDS ORDERED: GLUCAGON HCL 1 MG VIAL IVP PRN (08:21)
[2017-08-19] MEDS ORDERED: ALTEPLASE 2 MG VIAL IVP PRN ×2 (08:21→08:59)
[2017-08-19] MEDS ORDERED: HEPARIN 10,000 UNIT/10 ML MDV (1,000 UNIT/ML) IVP PRN (08:21)
[2017-08-19] MEDS ORDERED: PROTAMINE SULFATE 50 MG/5 ML VIAL IVP PRN (08:21)
[2017-08-19] MEDS ORDERED: NALOXONE HCL 0.4 MG/ML INJ IVP PRN (08:21)
[2017-08-19] MEDS ORDERED: fentaNYL 100 MCG/2 ML INJ ONE ×3 (08:32→10:57)
[2017-08-19] MEDS ORDERED: MIDAZOLAM 2 MG/2 ML VIAL ONE (08:32)
[2017-08-19] MEDS ORDERED: NALOXONE HCL 0.4 MG/ML INJ ONE (08:32)
[2017-08-19] MEDS ORDERED: FLUMAZENIL 0.5 MG/5 ML MDV IVP ONE (08:33)
[2017-08-19] MEDS ORDERED: LIDOCAINE 1% 300 MG/30 ML SDV ONE (08:43)
[2017-08-19] MEDS ORDERED: NS 500 ML IV ONE (09:01)
[2017-08-19] MEDS ORDERED: ALBUMIN 25% 100 ML IV ONE (09:02)
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
[2017-08-19] MEDS: NS 1,000 ML IV SCH ×2 (09:17→13:54)
[2017-08-19] MEDS ORDERED: VASOPRESSIN/DEXTROSE 250 ML IV SCH (09:30)
[2017-08-19] MEDS ORDERED: PROPOFOL/EMULSION 500 MG/50 ML BOTTLE IV ONE (09:30)
[2017-08-19] MEDS ORDERED: NOREPINEPHRINE/NS 500 ML IV SCH (09:30)
[2017-08-19] MEDS ORDERED: PHENYLEPHRINE HCL 100 MCG/ML SYR ONE (09:31)
--- NOTE | 2017-08-19 09:51 | PDMN ---
Medical Necessity Medical necessity: Pt meets inpt criteria per MD order and MCG M-160, Sepsis, Pt admitted w/severe hydroureteonephrosis requiring nephrostomy tube for ureteral stricture this AM, IV ABX's, pt hypotensive (84/49), alt mental status , requires ongoing med treatment and monitoring.
[2017-08-19] MEDS ORDERED: ONDANSETRON 4 MG/2 ML VIAL ONE (10:11)
[2017-08-19] MEDS ORDERED: DEXAMETHASONE 4 MG/ML VIAL ONE (10:11)
--- NOTE | 2017-08-19 10:15 | HOSPPROG ---
Hospitalist Progress Note Assessment/Plan: Septic shock - SOFA of 7 on admission. 2/2 ureteral obstruction from suspected stricture. Pt developed hypotension with SBP in 70's after 30 cc/kg fluid bolus , lactate 2.8 on arrival, though trending down. Needs central line. - PICC line per anesthesia - Start pressor support to keep MAP >65, follow CVP - Nephrostomy tube per IR - Cont IV Ceftriaxone, follow Cx's - Urology consulted Severe right hydroureteronephrosis - with suspected point of transition at UVJ. Pt has h/o stricture requiring stent in 2017, since removed. Cr normal. COPD - No evidence of acute exacerbation, continue home medications. Diet - NPO for procedure Code - Full Ppx - SCDs Dispo - Cont inpt, SDU (change to ICU status if requires pressors) 40 minutes critical care Subjective: Pt up in bed, denies pain. Fevers this am to 39.2. No N/V. Objective: Vital Signs Temp Pulse Resp BP Pulse Ox 37.9 C 102 H 14 74/58 L 98 08/19/17 09:41 08/19/17 09:41 08/19/17 09:41 08/19/17 09:41 08/19/17 09:41 08/18/17 08/19/17 08/20/17 05:59 05:59 05:59 Intake Total 3000 Balance 3000 PT 12.4 SEC (12.0-15.0) 08/19/17 04:45 INR 0.90 (0.83-1.16) 08/19/17 04:45 - Physical Exam Constitutional: no apparent distress Eyes: PERRL Ears, Nose, Mouth, Throat: moist mucous membranes Cardiovascular: regular rate and rhythym Respiratory: no respiratory distress, clear to auscultation Gastrointestinal: normoactive bowel sounds, other (soft, mild right sided tenderness with CVA tenderness, no r/r/g, +BS) Skin: warm Musculoskeletal: full muscle strength Neurologic: AAOx3 Psychiatric: interacting appropriately ICD10 Worksheet Patient Problems: Problems Problem Status Onset Hydroureter Acute Pyelonephritis Acute Sepsis secondary to UTI Acute UTI (urinary tract infection) Acute Ureteral stricture Acute COPD (chronic obstructive pulmonary disease) Acute Chronic Disease Mgmt/Transitional Care Acute Transient cerebral ischemia Acute
[2017-08-19] MEDS ORDERED: SUGAMMADEX SODIUM 200 MG/2 ML VIAL IVP ONE (10:47)
--- NOTE | 2017-08-19 10:54 | PDRADPN ---
Radiology Procedure Note Date of Procedure: 08/19/17 Radiologist: Eladia Sanchez Anesthesia: GET(General Endotracheal) Pre-op Diagnosis: hydroureteronephrosis Post-op Diagnosis: ureteronephrosis Indication: sepsis Procedure: right nephrostomy tube placement Inf/Abcess present in the surg proc area at time of surgery?: Yes Depth: Organ Space (sepsis) Drains: Nephrostomy
[2017-08-19] MEDS ORDERED: ALBUMIN 5% 500 ML BOTTLE IV ONE (11:31)
[2017-08-19] MEDS ORDERED: ALBUMIN 5% 500 ML IV ONE (19:30)
[2017-08-19] MEDS: ACETAMINOPHEN 325 MG TAB PO PRN (20:33)
--- NOTE | 2017-08-19 20:46 | HOSPPROG ---
Hospitalist Progress Note Assessment/Plan: Micro report: Enterococcus, not VRE. Change to Vanc BID dosing Objective: Vital Signs Temp Pulse Resp BP Pulse Ox 36.8 C 81 24 H 102/57 L 96 08/19/17 19:23 08/19/17 19:23 08/19/17 19:23 08/19/17 19:23 08/19/17 19:23 Microbiology 08/19/17 10:45 Gram Stain - Final Other - Aspirate 08/18/17 08/19/17 08/20/17 05:59 05:59 05:59 Intake Total 3000 Output Total 1340 Balance 1660 PT 12.4 SEC (12.0-15.0) 08/19/17 04:45 INR 0.90 (0.83-1.16) 08/19/17 04:45 ICD10 Worksheet Patient Problems: Problems Problem Status Onset Hydroureter Acute Pyelonephritis Acute Sepsis secondary to UTI Acute UTI (urinary tract infection) Acute Ureteral stricture Acute COPD (chronic obstructive pulmonary disease) Acute Chronic Disease [facility]/Transitional Care Acute Transient cerebral ischemia Acute
[2017-08-19] MEDS: VANCOMYCIN HCL/NORMAL SALINE 250 ML IV SCH (21:37)
--- NOTE | 2017-08-19 22:38 | SOAPPROG ---
SOAP Progress Note Assessment/Plan: Assessment: 1. Enterococcal septic shock: probably of urinary tract origin. 2. Severe, chronic/recurrent right hydroureteronephrosis w/ history of right ureterovesical junction stricture. s/p right nephrostomy tube placement earlier today. 3. Chronic nonobstructing distal right ureteral calculus. 4. Significant BPH. Plan: 1. Continue neph. tube drainage until further notice. 2. Start Rapaflo to reduce risk of recurrent urinary retention following Salcido removal. 3. ID consult. See dictated note (# [id number]). Objective: Vital Signs Temp Pulse Resp BP Pulse Ox 36.8 C 79 25 H 106/63 99 08/19/17 19:23 08/19/17 21:00 08/19/17 21:00 08/19/17 21:00 08/19/17 21:00 Microbiology 08/19/17 10:45 Gram Stain - Final Other - Aspirate 08/18/17 08/19/17 08/20/17 05:59 05:59 05:59 Intake Total 3000 Output Total 1340 Balance 1660 PT 12.4 SEC (12.0-15.0) 08/19/17 04:45 INR 0.90 (0.83-1.16) 08/19/17 04:45 ICD10 Worksheet Patient Problems: Problems Problem Status Onset Hydroureter Acute Pyelonephritis Acute Sepsis secondary to UTI Acute UTI (urinary tract infection) Acute Ureteral stricture Acute COPD (chronic obstructive pulmonary disease) Acute Chronic Disease Mgmt/Transitional Care Acute Transient cerebral ischemia Acute
[2017-08-19] MEDS ORDERED: oxyCODONE IR 5 MG TAB PO PRN (23:29)
--- NOTE | 2017-08-19 23:35 | GCON ---
[f rep st] CONSULTATION UROLOGY CONSULTATION NOTE DATE OF CONSULTATION: 08/19/2017 REFERRING PHYSICIAN: Hospitalist Service REASON FOR CONSULTATION: Urinary obstruction with septic shock. HISTORY: This is a 76-year-old gentleman who has previously seen Dr. Jackson with [facility] but has not been seen since August 2016, with a known history of distal right ureteral stricture and significant BPH. The patient developed a fairly rapid onset of right-sided abdominal pain over the last 2 days along with unmeasured fevers and chills, and, as a result, he was brought to the emergency room for further evaluation. CT imaging was performed at that time, which revealed severe right hydroureteronephrosis. The patient was noted to be in septic shock, and treatment protocol initiated. It was appropriately determined that a right-side nephrostomy tube would be beneficial, and this was placed earlier this morning successfully. At this time, the patient continues to have some abdominal pain, but he is overall improved. Prior to 2 days ago, he denies any issues with right flank nor abdominal pain since last seeing Dr. Jackson in August 2016. He does have a longstanding history of BPH with urinary obstruction and previously had transient urinary retention following surgery in July 2016. He currently experiences nocturia 2-3 times nightly along with a somewhat decreased force of urinary stream. He has previously taken Flomax on a p.r.n. basis when he has more difficulties urinating; however, he prefers to avoid taking it due to significant dizziness associated with this medication. Review of records from [facility] reveals that the patient was noted to have distal right ureteral stricturing for which he underwent transurethral incision and resection of the right ureterovesical junction in July 2016, with stent placement at that time. His stent was subsequently removed approximately 2 weeks later. At the time the patient last saw Dr. Jackson, it was recommended that he undergo a MAG 3 renal scan. The patient never had this study done and was subsequently lost to followup. Review of office records also reveals the patient underwent transrectal ultrasonography in June 2016 which revealed a prostate volume of approximately 60 cc. The patient had also undergone right-sided ureteroscopy and treatment of ureteral stone in April 2016. The patient was noted to have severe right hydronephrosis at that time. PAST MEDICAL HISTORY: Notable for COPD, recent TIA (he had recently undergone cardiac monitoring for assessment of possible arrhythmia and is scheduled to meet with Cardiology in the near future for this), chronic oral infection (for which he was recently treated with a 5-days azithromycin course, finished 2 weeks ago). PAST SURGICAL HISTORY: Includes the above-mentioned right-sided transurethral ureterovesical junction resection in July 2016, right ureteroscopy and calculus removal in April 2016, appendectomy. ADMISSION MEDICATIONS: Flomax p.r.n., albuterol MDI p.r.n., prednisone 40 mg p.r.n. MEDICAL ALLERGIES: Penicillin, sulfa, Flomax causes dizziness (as noted above). FAMILY HISTORY: Not contributory. SOCIAL HISTORY: The patient is single and lives in the [facility]. He has a large smoking history from use before age 72. REVIEW OF SYSTEMS: Unremarkable, other than mentioned above in the HPI and Past Medical History. PHYSICAL EXAM: GENERAL: Ill-appearing elderly male lying supine in bed in no acute distress presently. VITAL SIGNS: Blood pressure 106/63, pulse 79, respiratory rate 25, oxygen saturation 99% on 2 L nasal cannula. Most recent temperature 36.8 from 7:20 p.m. This compares to maximum temperature 39.2 Celsius at 0623 today. Height 180 cm, weight 74.8 kg, BMI 23. HEENT: Normocephalic, atraumatic. NECK: Supple. HEART: Regular rate. CHEST: Unlabored respiratory pattern. ABDOMEN: Soft with mild right-sided tenderness without peritoneal signs nor involuntary guarding. No abnormal masses are appreciated. BACK: Right-sided nephrostomy tube currently draining relatively clear-colored urine. EXTREMITIES: Warm without cyanosis, clubbing, nor significant edema. VASCULAR: Normal femoral, dorsalis pedis, and posterior tibial pulses bilaterally. GENITALIA: Normal phallus and scrotal structures. NEUROLOGIC: He is alert and oriented. He answers all questions appropriately with normal mood and affect. RADIOGRAPHIC STUDIES: 08/19/[address] scan: Upon my review, notable for severe right hydronephrosis and hydroureter to the level of the ureterovesical junction with an approximately 6 x 6 mm calculus seen dependently within the severely dilated distal ureter. There are no renal calculi appreciated. Also noted is an enlarged prostate. There is mild right renal cortical atrophy. The appearance of the urinary tract appears fairly unchanged from a April 2016 CT (including presence of the distal right ureteral calculus). LABORATORY: Chemistry panel today is unremarkable with creatinine 0.9. Coagulation parameters normal. CBC today notable for white cell count 17,700. Admission urinalysis notable for 50-182 white blood cells and 1+ bacteria. Blood cultures are growing Enterococcus species. Urine culture has no results to date. Nephrostomy aspirate was also sent for culture with no results thus far. IMPRESSION: 1. Septic shock, probably secondary genitourinary source. 2. Chronic severe right hydroureteronephrosis with history of distal right ureterovesical junction stricture. This appears to have potentially recurred following July [address] Jackson. 3. Longstanding approximately 6 mm distal right ureteral calculus. This calculus does not appear to be obstructing as it is sitting dependently within the severely dilated distal right ureter. 4. Significant BPH with longstanding urinary symptoms and prior history of postoperative urinary retention. PLAN: 1. Continue indwelling nephrostomy tube until infection has cleared and undergoes subsequent urologic surgical treatment. He will need further urinary tract evaluation and surgical management of probable recurrent distal right ureteral stricture and distal ureteral calculus. 2. Continue indwelling Salcido catheter for now. Based on history and size of his prostate, it is concerning that he might develop recurrent urinary retention with attempted Salcido catheter removal. Therefore, I would like to start him on Rapaflo 8 mg daily. This should not affect his blood pressure based on the fact that it is very prostate selective and causes a much lower incidence of dizziness relative to Flomax. Thank you for this consultation. I will continue to follow peripherally during this hospitalization. /[id number]/MODL MTDD
[2017-08-19] MEDS: LORazepam 0.5 MG TAB PO PRN (23:51)
[2017-08-20] MEDS: NOREPINEPHRINE BITARTRATE 4 MG in NS 500 ML IV SCH ×2 (03:49→22:50)
[2017-08-20] MEDS: NS 1,000 ML IV SCH (03:49)
[2017-08-20 03:56] LABS: PLATELET COUNT 118 10^3/uL (150-400)
[2017-08-20] MEDS ORDERED: ALBUMIN 5% 500 ML IV ONE (04:30)
[2017-08-20] MEDS: ACETAMINOPHEN 325 MG TAB PO PRN ×3 (05:24→22:51)
[2017-08-20] MEDS: VANCOMYCIN HCL/NORMAL SALINE 250 ML IV SCH (08:36)
[2017-08-20] MEDS ORDERED: ALBUTEROL 3 ML DEYVIAL IH PRN (09:19)
--- NOTE | 2017-08-20 09:25 | HOSPPROG ---
Hospitalist Progress Note Assessment/Plan: Septic shock with enterococcal bacteremia - SOFA 7 on admission. 2/2 ureteral obstruction with chronic right ureteral stricture and hydronephrosis. BCx's growing Enterococcus. Central line placed yesterday, SBP stable on Norepinephrine. Lactate cleared, though wbc's 17K-->26K. Continues to fever. - Changed from Ceftriaxone to Vanc, hopefully not VRE, await sensitivities - ID consulted - Wean pressors as able - S/P nephrostomy tube and perdomo Severe right hydroureteronephrosis - with suspected point of transition at UVJ. Pt has h/o stricture requiring stent in 2017, since removed. Cr normal. - appreciate urology consult, will likely require surgical intervention once acute infectious issues resolved COPD - No evidence of acute exacerbation, continue home medications. - Add QID duonebs, prn albuterol Thrombocytopenia - likely 2/2 sepsis, plts trending down but still >100 - follow Diet - regular Code - Full Ppx - KENNETH Dispo - Cont inpt, ICU 30 minutes critical care Subjective: Pt up in chair, eating and drinking. +fever this am and reported chills overnight. Pain controlled this am. No abdominal pain, N/V. No CP or SOB. Daughter notes he appears a bit SOB at times. He uses NAC for his COPD. Objective: Vital Signs Temp Pulse Resp BP Pulse Ox 37.9 C 77 24 H 108/60 97 08/20/17 08:00 08/20/17 08:00 08/20/17 08:00 08/20/17 08:00 08/20/17 08:00 Microbiology 08/19/17 10:45 Gram Stain - Final Other - Aspirate Laboratory Results 08/20/17 03:50 08/20/17 03:50 08/19/17 08/20/17 08/21/17 05:59 05:59 05:59 Intake Total 4703 Output Total 1690 200 Balance 3013 -200 PT 12.4 SEC (12.0-15.0) 08/19/17 04:45 INR 0.90 (0.83-1.16) 08/19/17 04:45 - Physical Exam Constitutional: no apparent distress Eyes: PERRL Ears, Nose, Mouth, Throat: moist mucous membranes Cardiovascular: regular rate and rhythym Respiratory: no respiratory distress, reduced air movement Gastrointestinal: normoactive bowel sounds, soft, non-tender abdomen Skin: warm Musculoskeletal: full muscle strength Neurologic: AAOx3 Psychiatric: interacting appropriately ICD10 Worksheet Patient Problems: Problems Problem Status Onset Hydroureter Acute Pyelonephritis Acute Sepsis secondary to UTI Acute UTI (urinary tract infection) Acute Ureteral stricture Acute COPD (chronic obstructive pulmonary disease) Acute Chronic Disease Mgmt/Transitional Care Acute Transient cerebral ischemia Acute
[2017-08-20] MEDS: IPRATROPIUM/ALBUTEROL 3 ML DEYVIAL IH SCH ×3 (10:14→23:19)
[2017-08-20] MEDS: ENOXAPARIN 40 MG/0.4 ML SYR SC SCH (10:31)
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
--- NOTE | 2017-08-20 15:06 | PDINTPN ---
Order Entry Representative Progress Note Assessment/Plan: 76 M with history of obstructive uropathy, ureteral stones and previous ureteral stents/strictures admitted 08/18 with RLQ pain, fever, chills, and hypotension. He had severe hydronephrosis on imaging studies with blood cultures showing Enterococcus. His BP was refractory to IVF boluses so started pressors after central line placement and right nephrostomy tube. He also has a history of moderate COPD (FEV1= 72% predicted on 05/14/17) with a history of exacerbations prior to 10/2016. He reported increasing SOB recently so self- medicated with "on hand" prednisone. He also reported a chronic oral abscess which his dentist recently suggested no further antibiotics. * Septic shock likely from urinary tract source- though his WBC enoch from yesterday, all other parameters look beter today with the exception of his mental status, which changed somewhat this afternoon. Blood cx show enterococcus and his vanco dose was increased by ID. Output in the nephrostomy tube looks appropriate. I agree that his oral issues are not likely the source of infection. Remains on low dose levophed. No vasopressin or steroids required. * encephalopathy- likely toxic/metabolic. An ABG is pending, but we should look at a head CT anyway. Other sources include endocarditis, CVA, CO2 narcosis. Doubt meningitis so no LP for now. * COPD- he has moderate disease by PFT criteria but has had issues of urinary retention with antimuscarinics in the past. His PCP documented frequent exacerbations in 10/2016, but he denies this to me. A combination ICS/LABA would be appropriate rather then self medicating with systemic steroids, which very likely could have exacerbated his septic shock given the inhibition of T cell immunity. His request to continue oral NAC should be fairly harmless as a potential anti-oxidant (PANTHEON and BRONCUS studies), but is not endorsed by the 2018 GOLD guidelines for COPD due to population heterogeneity among those studies, which only suggested a decrease in exacerbations. Once he recovers from this episode, he can discuss further COPD strategies with Dr. Grossman, who follows him as an outpatient. Subjective: Did not feel well this am, but non specific. More lethargic this afternoon Objective: Vital Signs Temp Pulse Resp BP Pulse Ox 37.4 C 106 H 26 H 101/63 96 08/20/17 14:00 08/20/17 14:00 08/20/17 14:00 08/20/17 14:00 08/20/17 14:00 Microbiology 08/19/17 10:45 Gram Stain - Final Other - Aspirate Laboratory Results 08/20/17 03:50 08/20/17 03:50 08/19/17 08/20/17 08/21/17 05:59 05:59 05:59 Intake Total 4703 Output Total 1690 450 Balance 3013 -450 PT 12.4 SEC (12.0-15.0) 08/19/17 04:45 INR 0.90 (0.83-1.16) 08/19/17 04:45 Physical Exam - Physical Exam General Appearance: alert, no apparent distress, other (from this am) EENT: PERRL/EOMI Neck: supple Respiratory: lungs clear, normal breath sounds, No respiratory distress, No accessory muscle use, No rales, No wheezing Cardiac/Chest: regular rate, rhythm, No edema Abdomen: non-tender, soft, No distended Skin: normal color, warm/dry, No cyanosis Lymphatic: no adenopathy Extremities: No pedal edema Neuro/Psych: alert, normal mood/affect, oriented x 3, other (became more somnolent this afternoon) ICD10 Worksheet Patient Problems: Problems Problem Status Onset Hydroureter Acute Pyelonephritis Acute Sepsis secondary to UTI Acute UTI (urinary tract infection) Acute Ureteral stricture Acute COPD (chronic obstructive pulmonary disease) Acute Chronic Disease Mgmt/Transitional Care Acute Transient cerebral ischemia Acute
[2017-08-20] MEDS: LORazepam 0.5 MG TAB PO PRN (17:44)
[2017-08-20] MEDS: VANCOMYCIN 1.5 GM in D5W 250 ML IV SCH (20:53)
[2017-08-20] MEDS ORDERED: NS 1,000 ML IV ONE (23:56)
--- NOTE | 2017-08-21 00:12 | CPEKG ---
Heart Rate: 135 RR Interval: 444 QRSD Interval: 72 QT Interval: 304 QTC Interval: 456 QRS [place]: 262 T Wave [place]: 5 EKG Severity - ABNORMAL ECG - EKG Impression: ATRIAL FIBRILLATION, V-RATE 100-174 EKG Impression: PROBABLE INFERIOR INFARCT, AGE INDETERMINATE Electronically Signed By: Sarah Villa 21-Aug-2017 07:45:15
[2017-08-21] MEDS: ACETAMINOPHEN 325 MG TAB PO PRN ×2 (04:03→11:16)
[2017-08-21 04:51] LABS: PLATELET COUNT 100 10^3/uL (150-400)
[2017-08-21] MEDS: IPRATROPIUM/ALBUTEROL 3 ML DEYVIAL IH SCH ×4 (05:43→19:54)
[2017-08-21] MEDS: VANCOMYCIN 1.5 GM in D5W 250 ML IV SCH ×2 (08:31→21:47)
[2017-08-21] MEDS: ENOXAPARIN 40 MG/0.4 ML SYR SC SCH (08:31)
[2017-08-21] MEDS: NS 1,000 ML IV SCH (08:36)
--- NOTE | 2017-08-21 09:59 | HOSPPROG ---
Hospitalist Progress Note Assessment/Plan: Septic shock with enterococcal bacteremia - SOFA 7 on admission. 2/2 ureteral obstruction with chronic right ureteral stricture and hydronephrosis. S/P percutaneous nephrostomy tube and perdomo 08/19. UCx, BCx's and ureteral aspirate growing Enterococcus. Lactate cleared. WBC's trending down. Continues to fever. - Cont Vanco, await sensitivities - ID following - Off Levophed this am, continue to monitor CVP closely Severe chronic right hydroureteronephrosis - Pt has h/o stricture requiring stent in 2017, since removed. Cr normal. - appreciate urology consult, will likely require surgical intervention once acute infectious issues resolved Suspected BPH - start flomax hs with hold parameters (we don't have rapaflo on formulary), cont perdomo until urology f/u COPD - No evidence of acute exacerbation. On room air today. - QID duonebs, prn albuterol Thrombocytopenia - likely 2/2 sepsis, plts trending down, 100K today - follow Diet - regular Code - Full Ppx - KENNETH, monitor plts closely, may need to hold tomorrow if plts <100 Dispo - Cont inpt, ICU Subjective: Pt doing a little better today, less somnolent, awake, up in chair, taking some PO. Tmax 39.3 last night. No pain. No N/V. Denies CP or SOB. Good uop from perdomo and perc tube. Objective: Vital Signs Temp Pulse Resp BP Pulse Ox 37.3 C 93 24 H 103/61 96 08/21/17 07:00 08/21/17 09:00 08/21/17 09:00 08/21/17 09:00 08/21/17 09:00 Microbiology 08/19/17 10:45 Gram Stain - Final Other - Aspirate Laboratory Results 08/21/17 04:00 08/21/17 04:00 08/20/17 08/21/17 08/22/17 05:59 05:59 05:59 Intake Total 4703 4299 Output Total 5750 9199 Balance 3013 2362 PT 12.4 SEC (12.0-15.0) 08/19/17 04:45 INR 0.90 (0.83-1.16) 08/19/17 04:45 - Physical Exam Constitutional: no apparent distress Eyes: PERRL Ears, Nose, Mouth, Throat: moist mucous membranes Cardiovascular: regular rate and rhythym Respiratory: no respiratory distress Gastrointestinal: normoactive bowel sounds, soft, non-tender abdomen Skin: warm Musculoskeletal: full muscle strength Neurologic: AAOx3 Psychiatric: interacting appropriately ICD10 Worksheet Patient Problems: Problems Problem Status Onset Hydroureter Acute Pyelonephritis Acute Sepsis secondary to UTI Acute UTI (urinary tract infection) Acute Ureteral stricture Acute COPD (chronic obstructive pulmonary disease) Acute Chronic Disease Mgmt/Transitional Care Acute Transient cerebral ischemia Acute
[2017-08-21] MEDS: ASPIRIN EC 325 MG TAB PO SCH (11:46)
--- NOTE | 2017-08-21 16:28 | PDINTPN ---
Licensed Mortgage Loan Officer Progress Note Assessment/Plan: 76 M with history of obstructive uropathy, ureteral stones and previous ureteral stents/strictures admitted 08/18 with RLQ pain, fever, chills, and hypotension. He had severe hydronephrosis on imaging studies with blood cultures showing Enterococcus. His BP was refractory to IVF boluses so started pressors after central line placement and right nephrostomy tube. He also has a history of moderate COPD (FEV1= 72% predicted on 05/14/17) with a history of exacerbations prior to 10/2016. He reported increasing SOB recently so self- medicated with "on hand" prednisone. He also reported a chronic oral abscess which his dentist recently suggested no further antibiotics. * Septic shock likely from urinary tract source- wbc down, afebrile. Blood cx show enterococcus and his vanco dose was increased by ID. Output in the nephrostomy tube looks appropriate. I agree that his oral issues are not likely the source of infection. Off levophed. No vasopressin or steroids required. * encephalopathy- likely toxic/metabolic. An ABG and head CT were normal. Other sources include endocarditis, CVA, CO2 narcosis. Doubt meningitis so no LP for now. * COPD- he has moderate disease by PFT criteria but has had issues of urinary retention with antimuscarinics in the past. His PCP documented frequent exacerbations in 10/2016, but he denies this to me. A combination ICS/LABA would be appropriate rather then self medicating with systemic steroids, which very likely could have exacerbated his septic shock given the inhibition of T cell immunity. His request to continue oral NAC should be fairly harmless as a potential anti-oxidant (PANTHEON and BRONCUS studies), but is not endorsed by the 2018 GOLD guidelines for COPD due to population heterogeneity among those studies, which only suggested a decrease in exacerbations. Once he recovers from this episode, he can discuss further COPD strategies with Dr. Grossman, who follows him as an outpatient. * Afib- not captured on ekg. He has had PAF in the past but is highly opposed to anticoagulation, despite hearing details of risk from Dr. Alexander. I gave him a CHADS score of 2, which shows a significant reduction in CVA risk. He has had "TIAs" in the past already. Subjective: feels better today, though not very communicative- single syllable answers. Apparent episode of afib last pm resolved with vagal maneuvers Objective: Vital Signs Temp Pulse Resp BP Pulse Ox 37.5 C 94 25 H 76/63 L 94 08/21/17 14:00 08/21/17 14:00 08/21/17 14:00 08/21/17 14:00 08/21/17 14:00 Microbiology 08/19/17 10:45 Gram Stain - Final Other - Aspirate Laboratory Results 08/21/17 04:00 08/21/17 04:00 08/20/17 08/21/17 08/22/17 05:59 05:59 05:59 Intake Total 4703 4267 240 Output Total 1690 1905 450 Balance 3013 2362 -210 PT 12.4 SEC (12.0-15.0) 08/19/17 04:45 INR 0.90 (0.83-1.16) 08/19/17 04:45 Physical Exam - Physical Exam General Appearance: alert, no apparent distress EENT: PERRL/EOMI Neck: supple Respiratory: lungs clear, normal breath sounds, No respiratory distress, No accessory muscle use Cardiac/Chest: regular rate, rhythm, No edema Abdomen: non-tender, soft, No distended Skin: normal color, warm/dry, No cyanosis Lymphatic: no adenopathy Extremities: No pedal edema Neuro/Psych: alert, normal mood/affect, oriented x 3 ICD10 Worksheet Patient Problems: Problems Problem Status Onset Hydroureter Acute Pyelonephritis Acute Sepsis secondary to UTI Acute UTI (urinary tract infection) Acute Ureteral stricture Acute COPD (chronic obstructive pulmonary disease) Acute Chronic Disease Mgmt/Transitional Care Acute Transient cerebral ischemia Acute
[2017-08-21] MEDS ORDERED: IBUPROFEN 600 MG TAB PO ONE (17:30)
[2017-08-21] MEDS ORDERED: ALBUTEROL 60 PUFFS/8 GM MDI IH PRN (17:53)
--- NOTE | 2017-08-21 18:00 | PCMIDPN ---
Assessment/Plan: Assessment/Plan: * Septic shock due to enterococcus faecalis bacteremia associated with obstructive uropathy: Blood cultures, urine culture, and nephrostomy culture all with growth of Enterococcus faecalis which is ampicillin and vancomycin susceptible. Persistent fever which is not unanticipated in this setting and likely could take 3-5 days to fully resolve. Now off pressors for blood pressure support. Plan to assess vancomycin trough this p.m.. Continue vancomycin in interim. Repeat blood cultures pending to assess for clearing of bacteremia. Once patient stabilizes, will discuss potential transition to ampicillin as suspect may not have true penicillin allergy based on description. Clinical findings and plan discussed with patient, family and ICU nursing staff. 08/21/17 17:57 08/21/17 18:07 08/21/17 18:08 Subjective: Patient notes he feels slightly better. Complains of intermittent fever. Became confusion yesterday afternoon prompting CT scan of brain which did not show acute abnormality. Confusion has now resolved. Also with AFib and rapid ventricular response this afternoon with concomitant hypotension. Objective: Vital Signs Temp Pulse Resp BP Pulse Ox 37.5 C 108 H 25 H 95/72 L 98 08/21/17 14:00 08/21/17 16:00 08/21/17 16:00 08/21/17 16:00 08/21/17 16:00 Microbiology 08/19/17 10:45 Gram Stain - Final Other - Aspirate Laboratory Results 08/21/17 04:00 08/21/17 04:00 08/20/17 08/21/17 08/22/17 05:59 05:59 05:59 Intake Total 4703 4267 1709 Output Total 1690 1905 600 Balance 3013 2362 1109 Vancomycin # 2 Blood cultures 08/19/17 Enterococcus faecalis susceptible to ampicillin and vancomycin Urine culture and culture at time of nephrostomy placement Enterococcus faecalis Blood cultures 08/21/2017 pending Tm 39.0 - Physical Exam General Appearance: alert, no apparent distress, non-toxic EENT: No scleral icterus, No thrush, No conjunctival petechiae Respiratory: lungs clear, No respiratory distress Cardiac/Chest: tachycardia, irregularly irregular Abdomen: non-tender, No distended Skin: No embolic lesions - Line/s other Lines: other (Right IJ triple-lumen catheter), No drainage, No erythema ICD10 Worksheet Patient Problems: Problems Problem Status Onset Hydroureter Acute Pyelonephritis Acute Sepsis secondary to UTI Acute UTI (urinary tract infection) Acute Ureteral stricture Acute COPD (chronic obstructive pulmonary disease) Acute Chronic Disease Mgmt/Transitional Care Acute Transient cerebral ischemia Acute
--- NOTE | 2017-08-21 18:48 | POSTANESTH ---
Post Anesthetic Evaluation Cardiovascular Status: Normal, Stable Respiratory Status: Normal, Stable Level of Consciousness/Mental Status: Can Participate in Eval Pain Control: Adequate, Prn Tx Ordered Nausea/Vomiting Control: Adequate, Prn Tx Ordered Complications Possibly Related to Anesthesia: None Noted
[2017-08-21] MEDS: TAMSULOSIN HCL 0.4 MG CAP PO SCH ×2 (20:53→20:57)
[2017-08-21] MEDS: LORazepam 0.5 MG TAB PO PRN (22:08)
[2017-08-22 05:46] LABS: PLATELET COUNT 84 10^3/uL (150-400)
[2017-08-22] MEDS: IPRATROPIUM/ALBUTEROL 3 ML DEYVIAL IH SCH ×2 (05:57→11:31)
[2017-08-22] MEDS: ASPIRIN EC 325 MG TAB PO SCH (08:07)
[2017-08-22] MEDS: VANCOMYCIN 1.5 GM in D5W 250 ML IV SCH ×2 (08:07→21:51)
--- NOTE | 2017-08-22 10:04 | PCMIDPN ---
Assessment/Plan: # Sepsis secondary to Enterococcus source urinary from right-sided obstructive uropathy s/p right nephrostomy tube placed. Last fever 1800 yesterday. Significant improvement in white count to 11.52 --awaiting blood cultures collected yesterday to assess for clearance, no growth today --will need PICC line when blood cultures 48 hours --patient is reluctant to rechallenge penicillin agent. Recheck Vanco trough tomorrow morning, creatinine yesterday 0.9 # childhood penicillin reaction with lymphadenopathy and hives Microbiology 08/21/17 Blood cx (2) : pending 08/19/17 05:55 Blood Cx (2) Enterococcus Faecalis 08/19/17 04:45 Urine,Clean Catch Urine Culture - Final Enterococcus Faecalis 08/19/17 10:45 Other - Aspirate Anaerobic Culture - Preliminary Enterococcus Faecalis Medication Vancomycin 1.5 g IV Q 12h, # 3, 08/21 vancomycin trough 11.9 Subjective: Patient has ambulated several times today, some loose stool overnight. Appetite is fair Objective: Vital Signs Temp Pulse Resp BP Pulse Ox 36.8 C 89 28 H 125/74 H 96 08/22/17 08:00 08/22/17 08:00 08/22/17 08:00 08/22/17 08:00 08/22/17 08:00 Microbiology 08/19/17 10:45 Gram Stain - Final Other - Aspirate Laboratory Results 08/22/17 04:40 08/21/17 04:00 08/21/17 08/22/17 08/23/17 05:59 05:59 05:59 Intake Total 4267 2648.3 65 Output Total 1905 1075 Balance 2362 1573.3 65 Selected Entries 08/21/17 18:00 Temperature (C) 38.5 C H - Physical Exam General Appearance: alert, no apparent distress EENT: pale conjunctiva, No scleral icterus Respiratory: lungs clear, No accessory muscle use Neck: supple, other (Right IJ quad lumen with dressing falling off) Cardiac/Chest: regular rate, rhythm Extremities: pedal edema Male Genitalia: perdomo, other (Right nephrostomy tube with blood-tinged urine) Skin: No rash Neuro/Psych: alert, normal mood/affect, oriented x 3 - Time Spent With Patient Time Spent with Patient: greater than 35 minutes (Care reviewed with patient and his daughter.) Time Spent with Patient: Greater than 35 minutes spent on this patients care, greater than 50% of time spent counseling, educating, and coordinating care regarding the above mentioned plan. ICD10 Worksheet Patient Problems: Problems Problem Status Onset Hydroureter Acute Pyelonephritis Acute Sepsis secondary to UTI Acute UTI (urinary tract infection) Acute Ureteral stricture Acute COPD (chronic obstructive pulmonary disease) Acute Chronic Disease Mgmt/Transitional Care Acute Transient cerebral ischemia Acute
--- NOTE | 2017-08-22 10:15 | SOAPPROG ---
SOAP Progress Note Assessment/Plan: Assessment: 1. Enterococcal septic shock: probably of urinary tract origin. Improving. Appreciate ID's assistance. 2. Severe, chronic/recurrent right hydroureteronephrosis w/ history of right ureterovesical junction stricture. s/p right nephrostomy tube placement on 08/19. 3. Chronic nonobstructing distal right ureteral calculus. 4. Significant BPH: unable to start Rapaflo because it is not on hospital formulary. Plan: 1. Continue neph. tube drainage until follow-up in my office after hospital discharge. 2. I do not have any objection to [place] removal and voiding trial whenever deemed appropriate by the hospitalist service. 3. Begin Rapaflo following discharge. I've placed an Rx. on his chart. Subjective: Getting slowly better. Having some bladder spasm-type discomfort. Objective: Vital Signs Temp Pulse Resp BP Pulse Ox 36.8 C 89 28 H 125/74 H 96 08/22/17 08:00 08/22/17 08:00 08/22/17 08:00 08/22/17 08:00 08/22/17 08:00 Microbiology 08/19/17 10:45 Gram Stain - Final Other - Aspirate Laboratory Results 08/22/17 04:40 08/21/17 04:00 08/21/17 08/22/17 08/23/17 05:59 05:59 05:59 Intake Total 4267 2648.3 65 Output Total 1905 1075 Balance 2362 1573.3 65 PT 12.4 SEC (12.0-15.0) 08/19/17 04:45 INR 0.90 (0.83-1.16) 08/19/17 04:45 Physical Exam - Physical Exam General Appearance: WD/WN, alert, no apparent distress Back: Other (urine dark colored without clots via neph. tube) Neuro/Psych: alert, normal mood/affect ICD10 Worksheet Patient Problems: Problems Problem Status Onset Hydroureter Acute Pyelonephritis Acute Sepsis secondary to UTI Acute UTI (urinary tract infection) Acute Ureteral stricture Acute COPD (chronic obstructive pulmonary disease) Acute Chronic Disease Mgmt/Transitional Care Acute Transient cerebral ischemia Acute
--- NOTE | 2017-08-22 12:06 | ASMTCMCOM ---
CM Note CM Note Notes: Patient being treated for enterococcal septic shock probably of UTI origin. ID and nephrology are following. Patient will go home with a nephrostomy tube and start Rapaflo after discharge. I spoke with he and his daughter about having a home health care case manager visit to help manage the above. They were both amenable to this. We will order home nursing closer to discharge. Date Signed: 08/22/2017 12:05 PM Electronically Signed By:Jo Castillo RN
[2017-08-22] MEDS ORDERED: IPRATROPIUM/ALBUTEROL 3 ML DEYVIAL IH PRN (12:09)
[2017-08-22] MEDS: ACETAMINOPHEN 325 MG TAB PO PRN (14:04)
[2017-08-22] MEDS: NS 1,000 ML IV SCH (16:28)
--- NOTE | 2017-08-22 16:49 | PDINTPN ---
Assignment Agent Progress Note Assessment/Plan: 76 M with history of obstructive uropathy, ureteral stones and previous ureteral stents/strictures admitted 08/18 with RLQ pain, fever, chills, and hypotension. He had severe hydronephrosis on imaging studies with blood cultures showing Enterococcus. His BP was refractory to IVF boluses so started pressors after central line placement and right nephrostomy tube. He also has a history of moderate COPD (FEV1= 72% predicted on 05/14/17) with a history of exacerbations prior to 10/2016. He reported increasing SOB recently so self- medicated with "on hand" prednisone. He also reported a chronic oral abscess which his dentist recently suggested no further antibiotics. * Septic shock likely from urinary tract source- wbc down, afebrile. Blood cx show enterococcus and his vanco dose was increased by ID. Output in the nephrostomy tube looks appropriate. Off levophed >24 hrs. * encephalopathy- likely toxic/metabolic. An ABG and head CT were normal. Other sources include endocarditis, CVA, CO2 narcosis. Doubt meningitis so no LP for now. Cleared by 08/21 * COPD- he has moderate disease by PFT criteria but has had issues of urinary retention with antimuscarinics in the past. His PCP documented frequent exacerbations in 10/2016, but he denies this to me. A combination ICS/LABA would be appropriate rather then self medicating with systemic steroids, which very likely could have exacerbated his septic shock given the inhibition of T cell immunity. His request to continue oral NAC should be fairly harmless as a potential anti-oxidant (PANTHEON and BRONCUS studies), but is not endorsed by the 2018 GOLD guidelines for COPD due to population heterogeneity among those studies, which only suggested a decrease in exacerbations. Once he recovers from this episode, he can discuss further COPD strategies with Dr. Grossman, who follows him as an outpatient. * Afib- not captured on ekg. He has had PAF in the past but is highly opposed to anticoagulation, despite hearing details of risk from Dr. Alexander. I gave him a CHADS score of 2, which shows a significant reduction in CVA risk. He has had "TIAs" in the past already. * OK for PCU 08/22/17 16:48 Subjective: no events Objective: Vital Signs Temp Pulse Resp BP Pulse Ox 37.4 C 100 27 H 124/73 H 94 08/22/17 15:49 08/22/17 15:49 08/22/17 15:49 08/22/17 15:49 08/22/17 15:49 Microbiology 08/19/17 10:45 Gram Stain - Final Other - Aspirate Laboratory Results 08/22/17 04:40 08/21/17 04:00 08/21/17 08/22/17 08/23/17 05:59 05:59 05:59 Intake Total 4267 2648.3 1395 Output Total 1905 1075 775 Balance 2362 1573.3 620 PT 12.4 SEC (12.0-15.0) 08/19/17 04:45 INR 0.90 (0.83-1.16) 08/19/17 04:45 Physical Exam - Physical Exam General Appearance: alert, no apparent distress EENT: PERRL/EOMI Neck: supple Respiratory: lungs clear, normal breath sounds, No respiratory distress, No accessory muscle use Cardiac/Chest: regular rate, rhythm, No edema Abdomen: non-tender, soft, No distended Skin: normal color, warm/dry, No cyanosis Lymphatic: no adenopathy Extremities: No pedal edema Neuro/Psych: alert, normal mood/affect, oriented x 3 ICD10 Worksheet Patient Problems: Problems Problem Status Onset Hydroureter Acute Pyelonephritis Acute Sepsis secondary to UTI Acute UTI (urinary tract infection) Acute Ureteral stricture Acute COPD (chronic obstructive pulmonary disease) Acute Chronic Disease Mgmt/Transitional Care Acute Transient cerebral ischemia Acute
--- NOTE | 2017-08-22 17:47 | HOSPPROG ---
Hospitalist Progress Note Assessment/Plan: Subjective Follow-up on septic shock bacteremia pyelonephritis. I discussion today with the patient and his daughter regarding atrial fibrillation. We discussed that he had found to have paroxysmal atrial fibrillation. The prolonged cardiac monitoring was ordered in light of his transient ischemic attack. He has had approximately 3 TIAs. We did discuss that based upon his chads Vasc coring that anticoagulation is recommended. This was discussed with him yesterday and he declined anticoagulation. He was agreeable to using aspirin however. We discussed that we would plan on short-term follow up with Cardiology once his more acute health issues have stabilized. He anticoagulation can be readdressed at that time as well. Today we did discuss the benefits and risks of Coumadin and direct thrombin inhibitors. We did also discuss the importance of rate control with atrial fibrillation as if persistent tachycardia developed he could developed heart failure. At the current time are going to hold off on adding beta-blockers for rate control. But may want to do this in the coming days. Objective Vital signs as detailed below Exam General-patient appears comfortable sitting in chair at the bedside he is awake alert conversant no acute distress Heart regular no murmurs appreciated Lungs-clear on auscultation with normal respiratory effort Abdomen-soft nontender nondistended -Salcido catheter in place with blood-tinged urine no definite clots visualized today Extremities-pitting edema stable both lower extremities Labs as detailed below Assessment and plan Septic shock-resolved. Patient is now off of vasopressors. Bacteremia-enterococci. Appreciate Infectious disease's help on the case. Continue antibiotics per the recommendations. Patient is currently on vancomycin as an apparent penicillin allergy. Pyelonephritis-patient has a right-sided nephrostomy tube. The plan will be to keep nephrostomy tube and Salcido catheter in place at the time of discharge and plan on short-term Urology follow-up. Dr. Almaguer consulted earlier on in the case. Right ureteral stricture-as above. BPH-continue Salcido catheter placement and plan on keeping the Salcido catheter into have discharge. Thrombocytopenia-continue trend. Possibly sepsis related. History of TIA-likely related to paroxysmal atrial fibrillation. I would recommend anticoagulation if the patient would agree to take. Will continue with aspirin for now. Atrial fibrillation-paroxysmal aspirin for now. Consider starting metoprolol in the coming days. DVT prophylaxis-lower risk now as patient is more mobile. Will hold heparin and Lovenox for now in light of thrombocytopenia. Disposition-will need to see how he does in the coming days with PT and OT to determine place of discharge. Objective: Vital Signs Temp Pulse Resp BP Pulse Ox 37.4 C 100 27 H 124/73 H 94 08/22/17 15:49 08/22/17 15:49 08/22/17 15:49 08/22/17 15:49 08/22/17 15:49 Microbiology 08/19/17 10:45 Gram Stain - Final Other - Aspirate Laboratory Results 08/22/17 04:40 08/21/17 04:00 08/21/17 08/22/17 08/23/17 05:59 05:59 05:59 Intake Total 4267 2648.3 1395 Output Total 1905 1075 775 Balance 2362 1573.3 620 PT 12.4 SEC (12.0-15.0) 08/19/17 04:45 INR 0.90 (0.83-1.16) 08/19/17 04:45 ICD10 Worksheet Patient Problems: Problems Problem Status Onset Hydroureter Acute Pyelonephritis Acute Sepsis secondary to UTI Acute UTI (urinary tract infection) Acute Ureteral stricture Acute COPD (chronic obstructive pulmonary disease) Acute Chronic Disease Mgmt/Transitional Care Acute Transient cerebral ischemia Acute
[2017-08-22] MEDS: LORazepam 0.5 MG TAB PO PRN (20:44)
[2017-08-22] MEDS: IBUPROFEN 600 MG TAB PO PRN (20:45)
[2017-08-22] MEDS: TAMSULOSIN HCL 0.4 MG CAP PO SCH (22:04)
[2017-08-23] MEDS: ASPIRIN EC 325 MG TAB PO SCH (08:20)
[2017-08-23 10:09] LABS: PLATELET COUNT 102 10^3/uL (150-400)
[2017-08-23] MEDS: VANCOMYCIN 1.5 GM in D5W 250 ML IV SCH (10:21)
[2017-08-23] MEDS ORDERED: ALTEPLASE 2 MG VIAL IVP PRN (12:42)
--- NOTE | 2017-08-23 12:55 | PCMIDPN ---
Assessment/Plan: # Sepsis secondary to Enterococcus source urinary from right-sided obstructive uropathy s/p right nephrostomy tube placed. Last fever 1800 yesterday. White count stable today --place PICC line --vancomycin trough high this afternoon, held vancomycin dose and will resume tonight at 1.25 q.12, creatinine is 1.0 --slight trend up of creatinine therefore will recheck vancomycin and creatinine tonight prior to giving dose # diarrhea and persistent fever: Rule out C diff # childhood penicillin reaction with lymphadenopathy and hives Microbiology 08/21/17 Blood cx (2) : NGTD 08/19/17 05:55 Blood Cx (2) Enterococcus Faecalis 08/19/17 04:45 Urine,Clean Catch Urine Culture - Final Enterococcus Faecalis 08/19/17 10:45 Other - Aspirate Anaerobic Culture - Preliminary Enterococcus Faecalis Medication Vancomycin 1.5 g IV Q 12h, # 4 Subjective: Patient with complaints of diarrhea, discomfort related to Perdomo and lower extremity edema. Objective: Vital Signs Temp Pulse Resp BP Pulse Ox 36.8 C 88 18 152/86 H 95 08/23/17 12:00 08/23/17 12:00 08/23/17 12:00 08/23/17 12:00 08/23/17 12:00 Microbiology 08/19/17 10:45 Gram Stain - Final Other - Aspirate Laboratory Results 08/23/17 08:15 08/23/17 08:15 08/22/17 08/23/17 08/24/17 05:59 05:59 05:59 Intake Total 2648.3 2167.5 Output Total 1075 1825 550 Balance 1573.3 342.5 -550 - Physical Exam General Appearance: alert, no apparent distress Respiratory: lungs clear, No accessory muscle use Neck: supple Cardiac/Chest: regular rate, rhythm, systolic murmur Extremities: pedal edema Abdomen: non-tender, soft, other (Right nephrostomy tube C/D/I) Male Genitalia: perdomo, scrotal edema Skin: warm/dry, pallor, No rash Neuro/Psych: alert, normal mood/affect, oriented x 3 - Line/s other Lines: other (Right IJ central line catheter with dressing falling off), No drainage, No erythema - Time Spent With Patient Time Spent with Patient: greater than 35 minutes (Care reviewed with patient, 1 sister and 2 daughters regarding ongoing IV antibiotic therapy, need for 2 weeks of IV therapy, elevated vancomycin level and implications) Time Spent with Patient: Greater than 35 minutes spent on this patients care, greater than 50% of time spent counseling, educating, and coordinating care regarding the above mentioned plan. ICD10 Worksheet Patient Problems: Problems Problem Status Onset Hydroureter Acute Pyelonephritis Acute Sepsis secondary to UTI Acute UTI (urinary tract infection) Acute Ureteral stricture Acute COPD (chronic obstructive pulmonary disease) Acute Chronic Disease Mgmt/Transitional Care Acute Transient cerebral ischemia Acute
--- NOTE | 2017-08-23 13:00 | PDIAF ---
- Diagnosis Diagnosis: enterococcal bacteremia Code Status: Full Code - Medication Management Discharge Medications: Medications to Continue on Transfer Albuterol [Proventil Inhaler HFA (*)] 1 - 2 puffs IH DAILY PRN 07/01/17 [Last Taken Unknown] Diclofenac Sodium 1% [Voltaren Gel (*)] 1 shari TP DAILY PRN 07/01/17 [Last Taken Unknown] Herbals/Supplements -Info Only 1 each PO DAILY 07/01/17 [Last Taken Unknown] predniSONE 40 mg PO AD PRN 07/01/17 [Last Taken 08/18/17] Aspirin [Aspirin 325 mg (*)] 325 mg PO DAILY #30 tab 07/02/17 [Last Taken ] Atorvastatin Calcium [Lipitor 10 mg (*)] 10 mg PO DAILY #30 tab 07/02/17 [Last Taken 08/18/17] Silodosin [Rapaflo] 8 mg PO DAILY #30 capsule 08/22/17 [Last Taken Unknown] Penitentiary Antibiotics: vancomycin 2.5gm IV continuous infusion Penitentiary Antibiotic Stop Date: 09/04/17 (Goal random vancomycin level between 20 and 30) Discharge Medications: Refer to the Discharge Home Medication list for PRN reason. PICC Care - Routine: Yes - Orders Services needed: Home Care, Registered Nurse Home Care Face to Face: I certify that this patient was under my care and that I had the required [id number] encounter meeting the encounter requirements on the discharge day. My findings support the fact that the patient is homebound as defined in Home Care Face to Face Continued: CMS Chapter 7 Medicare Benefits Manual 30.1.1 , The condition of the patient is such that there exists a normal inability to leave home and consequently, leaving home would require a considerable and taxing effort. - Labs/Radiology BMP Date: 08/28/17 (Every ) CBC w/diff Date: 09/01/17 (Every Friday) CMP Date: 09/01/17 (Every Friday) Vanco Random Date: 08/28/17 (Every and Friday) Call or Fax Lab and Imaging Results to: Estella Younger MD [facility] at fax [phone] - Follow Up Care Current Providers and Referrals: Patient,NotPresent [Unknown] - As per Instructions Estella Younger MD [Medical Doctor] - follow up in 1 week
--- NOTE | 2017-08-23 13:40 | HOSPPROG ---
Hospitalist Progress Note Assessment/Plan: Subjective Follow-up on pyelonephritis and bacteremia. Patient states he developed some leaking of urine on the right flank area presumably around the nephrostomy tube site. He is also noting some some bladder spasms. He asked about taking azo. I discussed that we could try this but I was not entirely sure if this would actually help out considering the Salcido catheter placement. His daughters were present at bedside today and I would they were updated on the current clinical status. I discussed that things seem to be stabilizing and hopefully we can get him discharged from the hospital in the coming days. Dr. Younger did order PICC line placement as he will be needing ongoing vancomycin. Objective Vital signs as detailed below Exam General-patient appears comfortable he is sitting in a chair at the bedside no acute distress Heart-regular rate and rhythm no murmurs noted Lungs-Clear to auscultation with normal respiratory effort Abdomen-soft nontender nondistended the right flank area was assessed and I did not see any obvious source of leakage around the nephrostomy tube site Salcido catheter in place with slightly less blood-tinged urine as compared to yesterday's exam Extremities-pitting edema both lower extremities stable as compared to yesterday 's exam Labs as detailed below Assessment and plan Bacteremia-enterococci. I appreciate Infectious disease's help on the case. Continue vancomycin per recommendations. PICC line has been ordered. Repeat blood cultures no growth to date. Pyelonephritis-with right ureteral stricture. patient has right-sided nephrostomy tube. The plan will be to keep nephrostomy tube and Salcido catheter in place at the time of discharge and will plan on short-term follow up with Dr. Almaguer for reassessment. BPH-continue Salcido catheter placement. The patient is also on Flomax. Thrombocytopenia-improving with platelets at 102 today. History of transient ischemic attack-likely related to paroxysmal atrial fibrillation. Anticoagulation has been decline. Continue with aspirin for now. Patient is also on statin therapy at 10 mg daily of atorvastatin. Atrial fibrillation-paroxysmal. As above anticoagulation declined. Please refer to my note from yesterday for documentation on the discussion. Continue with aspirin. Consider starting metoprolol if recurrent tachycardia. DVT prophylaxis-lower risk currently is patient is more ambulatory. Disposition-continue work with PT and OT. Patient appears strong enough to return home with home health. Objective: Vital Signs Temp Pulse Resp BP Pulse Ox 36.8 C 88 18 152/86 H 95 08/23/17 12:00 08/23/17 12:00 08/23/17 12:00 08/23/17 12:00 08/23/17 12:00 Microbiology 08/19/17 10:45 Gram Stain - Final Other - Aspirate Laboratory Results 08/23/17 08:15 08/23/17 08:15 08/22/17 08/23/17 08/24/17 05:59 05:59 05:59 Intake Total 2648.3 2167.5 Output Total 1075 1825 550 Balance 1573.3 342.5 -550 PT 12.4 SEC (12.0-15.0) 08/19/17 04:45 INR 0.90 (0.83-1.16) 08/19/17 04:45 ICD10 Worksheet Patient Problems: Problems Problem Status Onset Hydroureter Acute Pyelonephritis Acute Sepsis secondary to UTI Acute UTI (urinary tract infection) Acute Ureteral stricture Acute COPD (chronic obstructive pulmonary disease) Acute Chronic Disease Mgmt/Transitional Care Acute Transient cerebral ischemia Acute
--- NOTE | 2017-08-23 15:21 | ASMTCMCOM ---
CM Note CM Note Notes: 08/23/2017 Case Management Note Reviewed chart. Faxed referrals to infusion companies for discharge IV antibiotic needs. Faxed referrals to [facility] for RN support for IV antibiotic administration. Case Management to follow. Date Signed: 08/23/2017 03:21 PM Electronically Signed By:Purnima Valentine RN
[2017-08-23] MEDS: PHENAZOPYRIDINE HCL 200 MG TAB PO PRN (17:17)
[2017-08-23] MEDS: IBUPROFEN 600 MG TAB PO PRN (17:24)
[2017-08-23] MEDS ORDERED: DIAZEPAM 2 MG TAB PO PRN (17:29)
[2017-08-23] MEDS ORDERED: VANCOMYCIN 1.25 GM in D5W 250 ML IV SCH (21:00)
[2017-08-23] MEDS: VANCOMYCIN 750 MG in D5W 150 ML IV SCH (22:23)
[2017-08-23] MEDS: TAMSULOSIN HCL 0.4 MG CAP PO SCH (22:24)
[2017-08-24] MEDS: PHENAZOPYRIDINE HCL 200 MG TAB PO PRN ×3 (06:11→20:40)
[2017-08-24] MEDS: IBUPROFEN 600 MG TAB PO PRN ×2 (06:12→20:42)
[2017-08-24] MEDS: ATORVASTATIN CALCIUM 10 MG TAB PO SCH (08:36)
[2017-08-24] MEDS: ASPIRIN EC 325 MG TAB PO SCH (08:36)
[2017-08-24] MEDS ORDERED: LORazepam 0.5 MG TAB PO PRN (08:54)
[2017-08-24] MEDS: VANCOMYCIN 750 MG in D5W 150 ML IV SCH ×2 (10:11→21:37)
--- NOTE | 2017-08-24 12:40 | PCMIDPN ---
Assessment/Plan: # Sepsis secondary to Enterococcus source urinary from right-sided obstructive uropathy s/p right nephrostomy tube placed. No fever for 48 hr --multiple vancomycin adjustment this made due to evolving creatinine, recheck trough before discharge tomorrow. --DC on continuous infusion vancomycin 2 g, total dose would be slightly higher than intermittent dosing therefore will keep with recommended dose of 2 g for continuous infusion --case discussed with case folder # diarrhea and persistent fever: cdiff neg; no fever 48hours # childhood penicillin reaction with lymphadenopathy and hives Microbiology 08/21/17 Blood cx (2) : NGTD 08/19/17 05:55 Blood Cx (2) Enterococcus Faecalis 08/19/17 04:45 Urine,Clean Catch Urine Culture - Final Enterococcus Faecalis 08/19/17 10:45 Other - Aspirate Anaerobic Culture - Preliminary Enterococcus Faecalis Medication Vancomycin 750 mg IV Q 12h, # 5 Subjective: Patient with multiple questions recur guarding Perdomo, management of Perdomo and nephrostomy tube, IV antibiotic therapy at home Took a shower today Objective: Vital Signs Temp Pulse Resp BP Pulse Ox 36.6 C 74 18 114/72 94 08/24/17 07:43 08/24/17 07:43 08/24/17 07:43 08/24/17 07:43 08/24/17 07:43 Microbiology 08/19/17 10:45 Gram Stain - Final Other - Aspirate Laboratory Results 08/23/17 08:15 08/24/17 06:05 08/23/17 08/24/17 08/25/17 05:59 05:59 05:59 Intake Total 2167.5 1325 Output Total 1825 1525 675 Balance 342.5 -200 -675 - Physical Exam General Appearance: alert, no apparent distress Male Genitalia: perdomo, other (Nephrostomy tube) Skin: No rash Neuro/Psych: alert, normal mood/affect, oriented x 3 - Time Spent With Patient Time Spent with Patient: greater than 35 minutes (Care coordinated with case management; review of plans for outpatient care with patient and his daughter) Time Spent with Patient: Greater than 35 minutes spent on this patients care, greater than 50% of time spent counseling, educating, and coordinating care regarding the above mentioned plan. ICD10 Worksheet Patient Problems: Problems Problem Status Onset Hydroureter Acute Pyelonephritis Acute Sepsis secondary to UTI Acute UTI (urinary tract infection) Acute Ureteral stricture Acute COPD (chronic obstructive pulmonary disease) Acute Chronic Disease Mgmt/Transitional Care Acute Transient cerebral ischemia Acute
--- NOTE | 2017-08-24 13:26 | PDIAF ---
- Diagnosis Diagnosis: enterococcal bacteremia Code Status: Full Code - Medication Management Discharge Medications: Medications to Continue on Transfer Albuterol [Proventil Inhaler HFA (*)] 1 - 2 puffs IH DAILY PRN 07/01/17 [Last Taken Unknown] Diclofenac Sodium 1% [Voltaren Gel (*)] 1 shari TP DAILY PRN 07/01/17 [Last Taken Unknown] Herbals/Supplements -Info Only 1 each PO DAILY 07/01/17 [Last Taken Unknown] predniSONE 40 mg PO AD PRN 07/01/17 [Last Taken 08/18/17] Aspirin [Aspirin 325 mg (*)] 325 mg PO DAILY #30 tab 07/02/17 [Last Taken ] Atorvastatin Calcium [Lipitor 10 mg (*)] 10 mg PO DAILY #30 tab 07/02/17 [Last Taken 08/18/17] Silodosin [Rapaflo] 8 mg PO DAILY #30 capsule 08/22/17 [Last Taken Unknown] Intermediate Antibiotics: vancomycin 2gm IV continuous infusion Intermediate Antibiotic Stop Date: 09/04/17 (Goal random vancomycin level between 20 and 30) Discharge Medications: Refer to the Discharge Home Medication list for PRN reason. PICC Care - Routine: Yes - Orders Services needed: Home Care, Registered Nurse Home Care Face to Face: I certify that this patient was under my care and that I had the required [id number] encounter meeting the encounter requirements on the discharge day. My findings support the fact that the patient is homebound as defined in Home Care Face to Face Continued: CMS Chapter 7 Medicare Benefits Manual 30.1.1 , The condition of the patient is such that there exists a normal inability to leave home and consequently, leaving home would require a considerable and taxing effort. - Labs/Radiology BMP Date: 08/28/17 (Every ) CBC w/diff Date: 09/01/17 (Every Friday) CMP Date: 09/01/17 (Every Friday) Vanco Random Date: 08/28/17 (vancomycin random every Friday and ) Call or Fax Lab and Imaging Results to: Estella Younger MD [facility] at fax [phone] - Follow Up Care Current Providers and Referrals: Estella Younger MD [Medical Doctor] - follow up in 1 week Patient,NotPresent [Unknown] - As per Instructions
[2017-08-24] MEDS: ACETAMINOPHEN 325 MG TAB PO PRN (14:42)
[2017-08-24] MEDS ORDERED: SIMETHICONE 80 MG TAB CHEW PO PRN (16:04)
--- NOTE | 2017-08-24 16:52 | HOSPPROG ---
Hospitalist Progress Note Assessment/Plan: Subjective Follow-up on pyelonephritis and bacteremia. I reviewed patient's case with his nurse today. They were able to find a small neck in the nephrostomy bag which was the source of the leaking. He states that he feels like the bladder spasms are better today. He seems to associate the improvement with using Pyridium. His nurse also informed today that he has been declining the Flomax at night. I discussed with Martin that I think are success for Salcido catheter removal will be improved if we can use an alpha alina for at least 2-3 days before removing his Salcido catheter. This was discussed previously with Dr. Almaguer and Rapaflo was prescribed. The patient's daughter did bring the prescription to the pharmacy and pick that up today. We discussed possibly using this while he is here in the hospital although patient states he would just plan on starting and when he returned home. Objective Vital signs as detailed below Exam General-patient appears comfortable sitting in chair at the bedside no acute distress he generally seems very frustrated but situation he is in Lungs-normal respiratory effort Abdomen-nondistended Salcido catheter in place with tinted urine likely related to Pyridium Neuro-patient was observed walking in hallway and his gait looks normal with good balance Labs as detailed below Assessment plan Bacteremia-enterococci. Continue vancomycin per Infectious disease's recommendations. Repeat blood cultures have shown no growth to date. Radials are being made with case management for home health. Pyelonephritis-with right ureteral stricture. Patient has a right-sided nephrostomy tube and the plan will be to keep the nephrostomy tube and Salcido catheter in place at the time of discharge in will plan on short-term follow up with Dr. Almaguer. BPH-continue Salcido catheter placement. Patient has declined the use of Flomax secondary to orthostatic hypotension and lightheadedness. Rapaflo has been prescribed and the patient's daughter did fill this prescription today. History of TIA-likely related to paroxysmal atrial fibrillation. Anticoagulation has been decline. Continue with aspirin for now. Patient is also on statin therapy. Atrial fibrillation-paroxysmal. He has not had any recurrent tachycardia so will hold off on starting rate control agent at this point time. Anticoagulation has been declined. Please refer to my note from 08/22/2017 for discussion. DVT prophylaxis-lower risk currently as he is ambulatory and doing quite well. Disposition-continue work with PT and OT. Working on arrangements for discharge home with home health. Objective: Vital Signs Temp Pulse Resp BP Pulse Ox 36.9 C 86 18 133/88 H 93 08/24/17 15:19 08/24/17 15:19 08/24/17 15:19 08/24/17 15:19 08/24/17 15:19 Microbiology 08/19/17 10:45 Gram Stain - Final Other - Aspirate Laboratory Results 08/23/17 08:15 08/24/17 06:05 08/23/17 08/24/17 08/25/17 05:59 05:59 05:59 Intake Total 2167.5 1325 Output Total 1825 1525 1025 Balance 342.5 -200 -1025 PT 12.4 SEC (12.0-15.0) 08/19/17 04:45 INR 0.90 (0.83-1.16) 08/19/17 04:45 ICD10 Worksheet Patient Problems: Problems Problem Status Onset Hydroureter Acute Pyelonephritis Acute Sepsis secondary to UTI Acute UTI (urinary tract infection) Acute Ureteral stricture Acute COPD (chronic obstructive pulmonary disease) Acute Chronic Disease Mgmt/Transitional Care Acute Transient cerebral ischemia Acute
[2017-08-25 07:50] VITALS: BP 124/84
[2017-08-25] MEDS: ASPIRIN EC 325 MG TAB PO SCH (08:22)
[2017-08-25] MEDS: ATORVASTATIN CALCIUM 10 MG TAB PO SCH (08:22)
--- NOTE | 2017-08-25 10:08 | PDIAF ---
- Diagnosis Diagnosis: enterococcal bacteremia Code Status: Full Code - Medication Management Discharge Medications: Medications to Continue on Transfer Albuterol [Proventil Inhaler HFA (*)] 1 - 2 puffs IH DAILY PRN 07/01/17 [Last Taken Unknown] Diclofenac Sodium 1% [Voltaren Gel (*)] 1 shari TP DAILY PRN 07/01/17 [Last Taken Unknown] Herbals/Supplements -Info Only 1 each PO DAILY 07/01/17 [Last Taken Unknown] predniSONE 40 mg PO AD PRN 07/01/17 [Last Taken 08/18/17] Aspirin [Aspirin 325 mg (*)] 325 mg PO DAILY #30 tab 07/02/17 [Last Taken ] Atorvastatin Calcium [Lipitor 10 mg (*)] 10 mg PO DAILY #30 tab 07/02/17 [Last Taken 08/18/17] Silodosin [Rapaflo] 8 mg PO DAILY #30 capsule 08/22/17 [Last Taken Unknown] [facility] Antibiotics: vancomycin 2gm IV continuous infusion [facility] Antibiotic Stop Date: 09/04/17 (Goal random vancomycin level between 20 and 30) Discharge Medications: Refer to the Discharge Home Medication list for PRN reason. PICC Care - Routine: Yes - Orders Services needed: Home Care, Registered Nurse Home Care Face to Face: I certify that this patient was under my care and that I had the required [id number] encounter meeting the encounter requirements on the discharge day. My findings support the fact that the patient is homebound as defined in Home Care Face to Face Continued: CMS Chapter 7 Medicare Benefits Manual 30.1.1 , The condition of the patient is such that there exists a normal inability to leave home and consequently, leaving home would require a considerable and taxing effort. - Labs/Radiology BMP Date: 08/28/17 (Every ) CBC w/diff Date: 09/01/17 (Every Friday) CMP Date: 09/01/17 (Every Friday) Call or Fax Lab and Imaging Results to: Estella Younger MD [facility] at fax [phone] - Follow Up Care Current Providers and Referrals: Estella Younger MD [Medical Doctor] - 09/02/17 1:30 pm Patient,NotPresent [Unknown] - As per Instructions
--- NOTE | 2017-08-25 10:12 | PCMIDPN ---
Assessment/Plan: Assessment/Plan: * Septic shock due to enterococcus faecalis bacteremia associated with obstructive uropathy: Marked clinical improvement with resolution of septic physiology. Completing 2 weeks of vancomycin post negative blood cultures. Will be administered as continuous infusion as outpatient. Repeat creatinine and vancomycin trough planned for today prior to discharge. Side effects of vancomycin reviewed with patient including potential for allergic reactions, nephrotoxicity, or ototoxicity. Risks of PICC line also discussed with patient including potential for PICC associated DVT. Patient has scheduled follow-up with Dr. Younger in our office next week. Advised to notify our office for any issues related to his outpatient IV antibiotic therapy. 08/25/17 10:10 Subjective: Patient complains of mild pain at nephrostomy insertion site. Objective: Vital Signs Temp Pulse Resp BP Pulse Ox 36.7 C 95 15 124/84 H 93 08/25/17 07:49 08/25/17 07:49 08/25/17 07:49 08/25/17 07:49 08/25/17 07:49 Laboratory Results 08/23/17 08:15 08/24/17 08/25/17 08/26/17 05:59 05:59 05:59 Intake Total 1325 925 Output Total 1525 2675 Balance -200 -1750 Vancomycin # 6 Blood cultures 08/21/2017 no growth Laboratory Tests 08/24/17 06:05 Creatinine 1.0 - Physical Exam General Appearance: alert, no apparent distress EENT: No scleral icterus, No conjunctival petechiae Respiratory: lungs clear, No respiratory distress Cardiac/Chest: regular rate, rhythm Extremities: pedal edema Abdomen: non-tender, No distended Back: other (Mild erythema at dressing margin for nephrostomy tube consistent with contact dermatitis) Skin: No rash, No embolic lesions - Line/s RUE PICC Lines: No drainage, No erythema - Time Spent With Patient Time Spent with Patient: greater than 35 minutes Time Spent with Patient: Greater than 35 minutes spent on this patients care, greater than 50% of time spent counseling, educating, and coordinating care regarding the above mentioned plan. ICD10 Worksheet Patient Problems: Problems Problem Status Onset Hydroureter Acute Pyelonephritis Acute Sepsis secondary to UTI Acute UTI (urinary tract infection) Acute Ureteral stricture Acute COPD (chronic obstructive pulmonary disease) Acute Chronic Disease Mgmt/Transitional Care Acute Transient cerebral ischemia Acute
--- NOTE | 2017-08-25 13:09 | PDIAF ---
- Diagnosis Diagnosis: enterococcal bacteremia Code Status: Full Code - Medication Management Discharge Medications: Medications to Continue on Transfer Albuterol [Proventil Inhaler HFA (*)] 1 - 2 puffs IH DAILY PRN 07/01/17 [Last Taken Unknown] Diclofenac Sodium 1% [Voltaren Gel (*)] 1 shari TP DAILY PRN 07/01/17 [Last Taken Unknown] Herbals/Supplements -Info Only 1 each PO DAILY 07/01/17 [Last Taken Unknown] predniSONE 40 mg PO AD PRN 07/01/17 [Last Taken 08/18/17] Aspirin [Aspirin 325 mg (*)] 325 mg PO DAILY #30 tab 07/02/17 [Last Taken ] Atorvastatin Calcium [Lipitor 10 mg (*)] 10 mg PO DAILY #30 tab 07/02/17 [Last Taken 08/18/17] Silodosin [Rapaflo] 8 mg PO DAILY #30 capsule 08/22/17 [Last Taken Unknown] LORazepam [Ativan (*)] 0.5 mg PO Q4HRS PRN #20 tab 08/25/17 [Last Taken Unknown] Vancomycin [Vancomycin (*)] 750 mg IV Q12H vial 08/25/17 [Last Taken Unknown] oxyCODONE IR [Oxycodone Ir (*)] 5 mg PO Q4HRS PRN #20 tab 08/25/17 [Last Taken Unknown] Longterm Antibiotics: vancomycin 2gm IV continuous infusion [employer] Antibiotic Stop Date: 09/04/17 (Goal random vancomycin level between 20 and 30) Discharge Medications: Refer to the Discharge Home Medication list for PRN reason. PICC Care - Routine: Yes - Orders Services needed: Home Care, Registered Nurse Home Care Face to Face: I certify that this patient was under my care and that I had the required [id number] encounter meeting the encounter requirements on the discharge day. My findings support the fact that the patient is homebound as defined in Home Care Face to Face Continued: CMS Chapter 7 Medicare Benefits Manual 30.1.1 , The condition of the patient is such that there exists a normal inability to leave home and consequently, leaving home would require a considerable and taxing effort. Diet Recommendation: no restrictions on diet Diet Texture: Regular Texture Diet - Labs/Radiology BMP Date: 08/28/17 (Every ) CBC w/diff Date: 09/01/17 (Every Friday) CMP Date: 09/01/17 (Every Friday) Call or Fax Lab and Imaging Results to: Estella Younger MD [facility] at fax [phone] - Follow Up Care Current Providers and Referrals: Estella Younger MD [Medical Doctor] - 09/02/17 1:30 pm Patient,NotPresent [Unknown] - As per Instructions Delma Almaguer MD [Medical Doctor] - follow up in 2 weeks
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
--- NOTE | 2017-08-25 14:01 | ASMTLACE ---
LACE Length of stay for Answers: 4-6 days current admission Acuity / Level of Answers: Yes Care: Did the patient have an inpatient admission? Comorbidities - select Answers: Cerebrovascular disease all that apply (CVA, TIA, aneurysms, vasc ular dementia) Chronic pulmonary disease # of Emergency department Answers: 3-4 visits in the last 6 months Score: 13 Date Signed: 08/25/2017 02:00 PM Electronically Signed By:Purnima Valentine RN
--- NOTE | 2017-08-25 16:10 | GDS ---
[f rep st] DISCHARGE SUMMARY CONSULTATIONS: Dr. Almaguer, Urology; Dr. Rodriguez, Pulmonary Critical Care Medicine; Dr. Brar and Dr. Me rossi with Infectious Disease. DISCHARGE DIAGNOSES: 1. Enterococci bacteremia. 2. Right-sided pyelonephritis with associated right ureteral stricture. 3. BPH and urinary retention discharging with indwelling Salcido catheter. 4. History of transient ischemic attack. 5. Atrial fibrillation, paroxysmal. HISTORY OF PRESENT ILLNESS: The patient is a 76-year-old gentleman, prior kidney stones and prior ur eteral stricture who [facility], with compl aints of right lower quadrant pain and chills. It was noted that his urine appeared infected and CT imaging revealed right hydroureter nephrosis. Urology was consulted in the emergency room and it was recommended to have Interventional Radiology place a right-sided nephrostomy tube. Fortunately, he did quite well from a sepsis standpoint and stabilized. Infectious Disease was consulted on this aubrey e and the patient was treated with vancomycin. He has a PICC line placed and will be set up with [facility] to assist with ongoing IV antibiotics, as well as right-sided nephrostomy tube management. During the patient's time in the hospital, he was noted to have paroxysmal episodes of atrial fibrill ation with rapid rate. These were fortunately short-lived, lasting 5-10 minutes. As his infection s tarted to improve, he had less atrial fibrillation. A discussion did take place regarding anticoagul ation. This was declined by the patient. It was stressed that the anticoagulation is important dev jossielly in light of his history of recent TIAs. I explained to him that the anticoagulation would hanane igate the risk of further TIAs or cerebrovascular accidents. He did seem to understand this, but con tinued to decline anticoagulation. He has an upcoming followup visit with Neurology, and I think thi s would be helpful for added information for him. I also did recommend a followup consultation with Cardiology for another opinion as well. We did entertain the possibility of starting a rate control agent; however, as his infection improved, he did not have any recurrent tachycardic episodes, so thi s was deferred. HOSPITAL COURSE: 1. Bacteremia. The patient's blood cultures initially grew Enterococci bacteria. The subsequent bl ood cultures did clear. Source likely urinary with concurrent pyelonephritis. Infectious Disease wa s consulted during his hospitalization and recommended vancomycin for which he will continue at home via a PICC line placed here in the hospital. A followup visit with Infectious Disease has been sched uled for 09/02/2017. 2. Pyelonephritis. This is with associated right ureteral stricture. The patient has right-sided n ephrostomy tube and patient will discharge with a nephrostomy tube in place with short-term followup with Dr. Almaguer for further recommendations. 3. BPH. The patient had a Salcido catheter during this hospitalization. Flomax was recommended; tima perez, patient states he has poorly tolerated this in the past and declined its use here in the hospita l. Rapaflo was recommended. Unfortunately, we did not have this on formulary to give to him. His d ankur though did fill the prescription at his usual pharmacy and he has a prescription leaving the hospital to continue. I recommend that he start this as soon as he has a prescription available to h im. I explained to him I think our success of Salcido catheter removal and having him void successfull y will be increased with the use of Rapaflo. 4. History of transient ischemic attack. I suspect this is related to his paroxysmal atrial fibrill ation. Anticoagulation has been declined. We will continue with aspirin for now, which he was agree able to take. The patient is on statin therapy. 5. Atrial fibrillation, paroxysmal. No recurrent tachycardia, so we opted not to start any rate con trol agents during this hospitalization. I have recommended a second opinion with Cardiology after r esolution of more acute issues for a second opinion on management. Again, benefits and risks of anti coagulation fully discussed during this hospitalization and patient has declined. 6. Deep venous thrombosis prophylaxis. The patient was quite ambulatory during this hospitalization , so felt to be lower risk. 7. Disposition the patient did very well with Physical Therapy and Occupational Therapy. At this po int, I am not seeing any need for ongoing PT. We are establishing him with home health, however. PHYSICAL EXAMINATION: VITAL SIGNS: On day of discharge: Temperature 36.7, blood pressure 124/84, h eart rate 95, respirations 15, saturating 93% on room air. GENERAL: Patient sitting in a chair at t he bedside in no acute distress, awake, alert, conversant. HEART: Regular. No murmurs appreciated. LUNGS: Clear on auscultation with normal respiratory effort. ABDOMEN: Soft, nontender, nondistende d. Right-sided nephrostomy tube in place without any significant leakage. : Salcido catheter in pl odalys with darker yellow urine present, which I suspect is related to the Pyridium. EXTREMITIES: No s ignificant pitting edema or calf pain with palpation. LABORATORY/IMAGING: Notable studies: CT scan abdomen pelvis 08/19/2017. Severe right Hydroureteron ephrosis, probable distal ureteral stricturing, prostatomegaly, and urinary bladder wall thickening a nd diverticulosis. CT brain without IV contrast: Age-appropriate atrophy. No new findings. Blood cultures show Enterococcus faecalis. Repeat blood cultures from 08/24, showing no growth today . Urine culture: Enterococcus faecalis. White blood cell count 11, hemoglobin 13, platelets 102. Sodium is 136, potassium 3.6, chloride 109, bicarb 27, BUN 17, creatinine 1.0, glucose 132. DISCHARGE MEDICATIONS: 1. Vancomycin 2 g via continuous pump per day. 2. Rapaflo 8 mg daily, atorvastatin 10 mg nightly. 3. Aspirin 325 mg daily. 4. Albuterol inhaler as needed. 5. I sent an as needed prescription for lorazepam an oxycodone #20 tablets of each in case patient n eeds for any pain relief or insomnia, these were used during this hospitalization. DISCHARGE INSTRUCTIONS: Followup visit has been established with Infectious Disease for 09/02/2017, with Dr. Younger. I also recommend a followup visit with Dr. Almaguer in 1-2 weeks' time, and a cardiol ogy consultation was also recommended for a second opinion on his atrial fibrillation management next available would be appropriate. Patient states he has an appointment with Neurology scheduled for t omorrow. TIME: 40 minutes of time dedicated to discharge efforts. /[id number]/MODL
== END 2017-08-25 14:56 | disposition home health service (06) | DRG 854 ==
LOC: EDBD → EDUNIT# → OBSVTOIN 06:15 → F2N 08:07 → F2W 08-22 15:40
PROVIDERS: ADMIT Student in an Organized Health Care Education/Training Program; ATTEND Student in an Organized Health Care Education/Training Program
PROC: 0T9040Z Drainage of Right Kidney with Drainage Device, Percutaneous Endoscopic Approach (ICD-10-PCS; 2017-08-19)
PROC: 02HV3DZ Insertion of Intraluminal Device into Superior Vena Cava, Percutaneous Approach (ICD-10-PCS; principal; 2017-08-23)
DX: A41.81 Sepsis due to Enterococcus (principal); N10 Acute pyelonephritis; N13.1 Hydronephrosis with ureteral stricture, not elsewhere classified; E86.9 Volume depletion, unspecified; R65.20 Severe sepsis without septic shock; N40.1 Benign prostatic hyperplasia with lower urinary tract symptoms; R33.9 Retention of urine, unspecified; I48.0 Paroxysmal atrial fibrillation; J44.9 Chronic obstructive pulmonary disease, unspecified; Z86.73 Personal history of transient ischemic attack (TIA), and cerebral infarction without residual deficits; Z87.442 Personal history of urinary calculi; Z88.0 Allergy status to penicillin; Z87.891 Personal history of nicotine dependence
CPT/HCPCS: 96374; 97116-GP; 97161-GP; 97165-GO; 97535-GO; C1729; C1751; C1769; G8978-GP-CI; G8979-GP-CH; J0696; J1100; J1170; J1644; J1650; J2250; J2310; J2370; J2405; J2704; J3010; J3370; P9041; P9047; Q9967

== ENCOUNTER 2017-09-12 03:16 | Emergency (ER) | payer OTHER ==
[2017-09-12] MEDS ORDERED: LIDOCAINE 2% JELLY 20 ML (UROJECT) ONE (03:23)
--- NOTE | 2017-09-12 03:24 | EDPHY ---
H & P Stated Complaint: UROSCOPY TWO DAYS AGO NEEDS LY Time Seen by Provider: 09/12/17 03:23 HPI/ROS: HPI CHIEF COMPLAINT: Unable to urinate need Ly. HISTORY OF PRESENT ILLNESS: 76-year-old male, complicated recent urological history which includes enterococcal bacteremia and sepsis, right UVJ obstruction , bacteremia, pyelonephritis, had a ureteral stent placed on the by Dr. Almaguer. Patient presents emergency room stating these unable to urinate for the last 5 hr and is requesting a Ly catheter. Denies any fever, denies back pain, denies vomiting, denies feeling ill. States that he is unable to urinate and is requesting Ly catheter. Patient states this started 5 hr ago. Past Medical History: History of COPD/emphysema, TIA, BPH, kidney stone, recent hospitalization for bacteremia/sepsis, enterococci, ureteral stent. Past Surgical History: Ureteral stricture repair, appendectomy Social History: Denies drugs alcohol tobacco. Family History: Noncontributory ROS REVIEW OF SYSTEMS: A comprehensive 10 point review of systems is otherwise negative aside from elements mentioned in the history of present illness. Exam Constitutional nontoxic. No acute distress, triage nursing summary reviewed, vital signs reviewed, awake/alert. Eyes normal conjunctivae and sclera, EOMI, PERRLA. HENT normal inspection, atraumatic, moist mucus membranes, no epistaxis, neck supple/ no meningismus, no raccoon eyes. Respiratory clear to auscultation bilaterally, normal breath sounds, no respiratory distress, no wheezing. Cardiovascular rate normal, regular rhythm, no murmur, no edema, distal pulses normal. Gastrointestinal soft, non-tender, no rebound, no guarding, normal bowel sounds, no distension, no pulsatile mass. Genitourinary no CVA tenderness. Musculoskeletal no midline vertebral tenderness, full range of motion, no calf swelling, no tenderness of extremities, no meningismus, good pulses, neurovascularly intact. Skin pink, warm, & dry, no rash, skin atraumatic. Neurologic awake, alert and oriented x 3, AAOx3, moves all 4 extremities equally, motor intact, sensory intact, CN II-XII intact, normal cerebellar, normal vision, normal speech. Psychiatric normal mood/affect. Heme/Lymph/Immune no lymphadenopathy. Differential Diagnosis: Includes but is not limited to in a particular order: BPH, high ureter stricture, outflow obstruction, urinary retention Medical Decision Making: Plan for this patient he is unable to urinate and complains of suprapubic pressure states he has been trying to urinate for the past 5 hr but is unable to do so. Presents emergency room by private vehicle requesting Ly placement. Re-evaluation: I did review his recent medical history additionally reviewed recent operative poor by Dr. Almaguer. Will plan on Ly catheter placement allowed to drain. Will allow her to go home with Ly catheter and I do recommend he follows up closely with Dr. Almaguer. Urinalysis reviewed. Patient on oral antibiotics at this time. Recommend patient follows up with Urology. Urine culture be sent in emergency room. Continue home antibiotics. Ly catheter. Follow-up urology. Return emergency room if there is worsening symptoms fever vomiting. Source: Patient - Personal History Current Tetanus Diphtheria and Acellular Pertussis (TDAP): Unsure - Medical/Surgical History Hx Asthma: No Hx Chronic Respiratory Disease: Yes Hx Diabetes: No Hx Cardiac Disease: No Hx Renal Disease: No Hx Cirrhosis: No Hx Alcoholism: No Hx HIV/AIDS: No Hx Splenectomy or Spleen Trauma: No Other PMH: 05/19/12 cervical spinal surgery 05/31, [facility], BPH, COPD,Kidney stone removed 2016, kidney problems (seeing urologist friday), possible parkinsons - Social History Smoking Status: Former smoker Constitutional: Initial Vital Signs Temperature (C) 36.5 C 09/12/17 03:19 Heart Rate 115 H 09/12/17 03:19 Respiratory Rate 20 09/12/17 03:19 Blood Pressure 136/110 H 09/12/17 03:19 O2 Sat (%) 96 09/12/17 03:19 O2 Delivery Mode Room Air Allergies/Adverse Reactions: Penicillins Allergy (Verified 09/02/17 11:59) LYMPH NODE SWELLING Sulfa (Sulfonamide Antibiotics) Allergy (Verified 09/02/17 11:59) LYMPH NODE SWELLING Home Medications: Medication Instructions Recorded Albuterol [Proventil Inhaler HFA 1 - 2 puffs IH DAILY PRN 07/01/17 (*)] Herbals/Supplements -Info Only 1 each PO DAILY 07/01/17 Vancomycin [Vancomycin (*)] 750 mg IV Q12H vial 08/25/17 Atorvastatin Calcium [Lipitor 10 10 mg PO DAILY AT 6PM 09/02/17 mg (*)] Silodosin [RAPAFLO] 8 mg PO DAILY AT 6PM 09/02/17 Ciprofloxacin [Cipro] 500 mg PO BID #14 tab 09/08/17 LORazepam [Ativan (*)] 0.12 mg PO Q4HRS PRN 09/08/17 Medical Decision Making - Data Points Laboratory Results: 09/12/17 03:40 Urine Color PALE YELLOW Urine Appearance CLEAR Urine pH 7.0 (5.0-7.5) Ur Specific [place] 1.006 (1.002-1.030) Urine Protein NEGATIVE (NEGATIVE) Urine Ketones NEGATIVE (NEGATIVE) Urine Blood 3+ H (NEGATIVE) Urine Nitrate NEGATIVE (NEGATIVE) Urine Bilirubin NEGATIVE (NEGATIVE) Urine Urobilinogen NEGATIVE EU EU (0.2-1.0) Ur Leukocyte Esterase NEGATIVE (NEGATIVE) Urine RBC 50-182 /hpf H /hpf (0-3) Urine WBC 5-10 /hpf H /hpf (0-3) Ur Epithelial Cells NONE SEEN /lpf /lpf (NONE-1+) Urine Bacteria TRACE /hpf H /hpf (NONE SEEN) Urine Mucus TRACE /lpf /lpf (NONE-1+) Urine Glucose NEGATIVE (NEGATIVE) Departure - Departure Disposition: Home, Routine, Self-Care Clinical Impression: Urinary obstruction Condition: Good Instructions: Urinary Retention in Men (ED), Ly Catheter Placement and Care (ED) Additional Instructions: 1. Continue drink lots of fluids. 2. Follow up with Urology call their for follow-up appointment 3. Return emergency room if there is worsening symptoms which includes abdominal pain, fever, not feeling well. 4. Ly catheter care. Referrals: Purnima Schwab MD [Primary Care Provider] - As per Instructions Delma Almaguer MD [Medical Doctor] - As per Instructions
[2017-09-12 05:04] VITALS: BP 130/84
== END 2017-09-12 05:23 | disposition home or self-care (01) ==
PROC: 0T9B70Z Drainage of Bladder with Drainage Device, Via Natural or Artificial Opening (ICD-10-PCS; principal; 2017-09-12)
DX: N13.9 Obstructive and reflux uropathy, unspecified (principal); J44.9 Chronic obstructive pulmonary disease, unspecified; Z87.891 Personal history of nicotine dependence

== ENCOUNTER 2017-10-30 11:17 | Day surgery (SDC) | payer OTHER ==
[2017-10-30] MEDS ORDERED: levOFLOXACIN 500 MG/DEXTROSE 100 ML IV ONE (11:19)
[2017-10-30] MEDS ORDERED: VANCOMYCIN HCL/NORMAL SALINE 250 ML IV ONE (11:19)
[2017-10-30] MEDS ORDERED: LR 1,000 ML IV ONE (11:20)
[2017-10-30] MEDS ORDERED: MIDAZOLAM 2 MG/2 ML VIAL IVP ONE (12:28)
--- NOTE | 2017-10-30 12:29 | PDHPUP ---
History & Physical Update H&P update statement: This history and physical update is based on an assessment of the patient which was completed after admission or registration (within 24 hours), but prior to the surgery/procedure. H&P update: no change in patient's condition since H&P completed
--- NOTE | 2017-10-30 12:30 | PDANEPAE ---
ANE History of Present Illness BPH ANE Past Medical History - Cardiovascular History Hx Hypertension: No Hx Arrhythmias: No Hx Chest Pain: No Hx Coronary Artery / Peripheral Vascular Disease: No Hx CHF / Valvular Disease: No Hx Palpitations: No Cardiovascular History Comment: ONE TIME HX OF A-FIB - Pulmonary History Hx COPD: Yes Hx Asthma/Reactive Airway Disease: No Hx Recent Upper Respiratory Infection: No Hx Oxygen in Use at Home: No Hx Sleep Apnea: Yes Sleep Apnea Screening Result - Last Documented: Positive Pulmonary History Comment: COPD - Neurologic History Hx Cerebrovascular Accident: No Hx Seizures: No Hx Dementia: No Neurologic History Comment: TIA X3 LAST APPROXIMATELY 06/2017 - Endocrine History Hx Diabetes: No - Renal History Hx Renal Disorders: Yes Renal History Comment: obstructive uropathy - Liver History Hx Hepatic Disorders: No - Neurological & Psychiatric Hx Hx Neurological and Psychiatric Disorders: No - Cancer History Hx Cancer: No - Congenital Disorder History Hx Congenital Disorders: No - GI History Hx Gastrointestinal Disorders: No - Other Health History Other Health History: ALWAY SOME DIFFICULTY WITH SWALLOWING. BRUISES EASILY - Chronic Pain History Chronic Pain: No - Surgical History Prior Surgeries: URETEROSCOPY DILATION STENT PLACEMENT REMVL OF NEPHROSTOMY TUBE 09/08/17. PICC LINE. URETHERAL STENT. CERVICAL SPINE. APPENDECTOMY. TONSILLECTOMY ANE Review of Systems Review of Systems: - Exercise capacity METS (RN): 4 METS ANE Patient History - Allergies Allergies/Adverse Reactions: Penicillins Allergy (Severe, Verified 10/30/17 11:42) LYMPH NODE SWELLING Sulfa (Sulfonamide Antibiotics) Allergy (Severe, Verified 10/30/17 11:42) LYMPH NODE SWELLING - Home Medications Home Medications: Albuterol [Proventil Inhaler HFA (*)] 1 - 2 puffs IH DAILY PRN 07/01/17 [Last Taken 10/26/17] Herbals/Supplements -Info Only 1 each PO DAILY 07/01/17 [Last Taken 09/28/17] Atorvastatin Calcium [Lipitor 10 mg (*)] 10 mg PO DAILY AT 6PM 09/02/17 [Last Taken 10/30/17 11:30] Silodosin [RAPAFLO] 8 mg PO DAILY AT 6PM 09/02/17 [Last Taken 10/09/17] LORazepam [Ativan (*)] 0.12 mg PO Q4HRS PRN 09/08/17 [Last Taken 10/26/17 21:00] Eliquis 10/30/17 [Last Taken 10/26/17] Metoprolol Tartrate 25 mg PO BID 10/30/17 [Last Taken 10/29/17 19:00] - NPO status NPO Since - Liquids (Date): 10/30/17 NPO Since - Liquids (Time): 07:00 NPO Since - Solids (Date): 10/29/17 NPO Since - Solids (Time): 19:00 - Smoking Hx Smoking Status: Former smoker ANE Labs/Vital Signs - Vital Signs Blood Pressure: 137/76 Heart Rate: 72 Respiratory Rate: 15 O2 Sat (%): 98 Height: 180.34 cm Weight: 74.843 kg ANE Physical Exam - Airway Neck exam: decreased ROM Mallampati Score: Class 2 Mouth exam: normal dental/mouth exam - Pulmonary Pulmonary: no respiratory distress - Cardiovascular Cardiovascular: regular rate and rhythym - ASA Status ASA Status: III ANE Anesthesia Plan Anesthesia Plan: general endotracheal anesthesia
[2017-10-30] MEDS ORDERED: PROPOFOL 200 MG/20 ML VIAL ONE (12:38)
[2017-10-30] MEDS ORDERED: fentaNYL 100 MCG/2 ML INJ ONE ×3 (12:38→15:27)
[2017-10-30] MEDS ORDERED: ROCURONIUM 50 MG/5 ML VIAL ONE (12:38)
[2017-10-30] MEDS ORDERED: ONDANSETRON 4 MG/2 ML VIAL IVP PRN (14:09)
[2017-10-30] MEDS ORDERED: fentaNYL 100 MCG/2 ML INJ IVP PRN (14:09)
[2017-10-30] MEDS ORDERED: NALOXONE HCL 0.4 MG/ML INJ IVP PRN (14:09)
[2017-10-30] MEDS ORDERED: PROMETHAZINE HCL 25 MG/ML INJ IVP PRN (14:09)
[2017-10-30] MEDS ORDERED: HYDROCODONE/APAP 5/325 TAB PO PRN (14:09)
--- NOTE | 2017-10-30 15:12 | POSTANESTH ---
Post Anesthetic Evaluation Cardiovascular Status: Normal, Stable, Tx Over/Under Hydration Level of Consciousness/Mental Status: Can Participate in Eval Pain Control: Adequate, Prn Tx Ordered Nausea/Vomiting Control: Adequate, Prn Tx Ordered Complications Possibly Related to Anesthesia: None Noted
--- NOTE | 2017-10-30 15:12 | POSTOPPROG ---
Post Op Note Date of Operation: 10/30/17 Surgeon: Delma Almaguer (# [id number]) Anesthesia: GET(General Endotracheal) Pre-op Diagnosis: BPH w/ retention, indwelling right ureteral stent Post-op Diagnosis: BPH w/ retention, indwelling right ureteral stent Procedure: Cysto w/ stent removal, Greenlight PVP Findings: See op note Inf/Abcess present in the surg proc area at time of surgery?: No EBL: 50-100 (50 cc) Complications: None
[2017-10-30] MEDS ORDERED: LORazepam 0.5 MG TAB PO PRN (15:14)
[2017-10-30] MEDS ORDERED: ALBUTEROL 60 PUFFS/8 GM MDI IH PRN (15:14)
[2017-10-30] MEDS ORDERED: ATORVASTATIN CALCIUM 10 MG TAB PO SCH (18:00)
[2017-10-30 18:06] VITALS: BP 113/68
--- NOTE | 2017-10-30 18:40 | GOP ---
DATE OF OPERATION: 10/30/2017 SURGEON: Delma Almaguer MD NEUROSURGEON: Delma Almaguer MD ANESTHESIA: General endotracheal. PREOPERATIVE DIAGNOSIS: 1. BPH with urinary retention. 2. Indwelling right ureteral stent. POSTOPERATIVE DIAGNOSIS: 1. BPH with urinary retention. 2. Indwelling right ureteral stent. PROCEDURE PERFORMED: 1. Cystourethroscopy with right ureteral stent removal. 2. GreenLight photovaporization of the prostate. FINDINGS: Signficant circumferential BPH. SPECIMENS: None. ESTIMATED BLOOD LOSS: Approximately 50 cc. INDICATIONS: This gentleman has developed recurrent urinary retention and requiring indwelling Salcido catheter. He has failed multiple voiding trials. As a result, he presents for operative management of his enlarged prostate. He also has an existing indwelling right ureteral stent that was placed at the time of prior surgery. This is scheduled to be removed as well. The indications for the procedures as well as potential risks and complications were discussed with the patient preoperatively. He appeared to understand, his questions were answered, and he wished to proceed. Written informed surgical consent was thereafter obtained. DESCRIPTION OF PROCEDURE: The patient was brought to the operating room and administered general endotracheal anesthesia. He was carefully placed in the dorsal lithotomy position on the cystoscopic table utilizing Prashanth stirrups. The existing indwelling Salcido catheter was removed. The genital area was sterilely prepped with Betadine scrub and paint, then draped in usual sterile fashion. Cystoscopy was performed with a 30-degree lens through a 25-Marshallese sheath. Anterior urethra revealed no abnormalities. Posterior urethra revealed significant circumferential BPH and secondary obstruction with a prominent intravesical median lobe encroaching onto the trigone. The right ureteral stent was seen exiting the right ureteral orifice, which was laterally displaced as a result of prior surgery. I used flexible grasping forceps to extract this ureteral stent completely without complication. I then turned my attention to GreenLight photovaporization of the prostate. The cystoscope was removed and the GreenLight XPS sheath and laser bridge were then inserted, along with a 30-degree lens and the GreenLight XPS fiber. Using normal saline continuous passive flow, vaporization of the prostate was initiated with 60 up of energy. This was the energy setting used to paint the prostatic mucosa from the level of bladder neck and extending back towards the verumontanum. I then increased to a maximum of 120 up of energy, which was the energy setting used to ablate the majority of the adenoma. The median lobe did not vaporize as easily as usual, nor did the floor of the prostate. This required more laser energy than would typically be necessary. I vaporized the prostate circumferentially down to approximately capsular fibers. Hemostasis was fairly well maintained throughout the case. At the conclusion of the operation, the prostatic fossa was widely patent, no vaporization taken place proximal to the bladder neck nor distal to the verumontanum, and ureteral orifices were well preserved. The instruments were removed and a 22-Marshallese 3- way Salcido catheter inserted with the use of a catheter guide. Approximately 40 cc of sterile water was placed in the balloon. The catheter irrigated manually and the return was light pink. Continuous irrigation with normal saline was initiated. The catheter was connected to bag drainage. The urine return at this point was nearly clear. The patient was then awakened, extubated, transferred to his bed, and taken to the recovery room. He tolerated the procedure well overall. COMPLICATIONS: None. DISPOSITION: He was transferred to the recovery room in stable condition. He will be instructed to return to the office on Friday for Salcido removal. /[id number]/MODL MTDD
[2017-10-30] MEDS ORDERED: METOPROLOL TARTRATE 25 MG PO SCH (21:00)
== END 2017-10-30 18:05 | disposition home or self-care (01) ==
LOC: FSGY 11:17
PROVIDERS: ATTEND Specialist
PROC: 0TP98DZ Removal of Intraluminal Device from Ureter, Via Natural or Artificial Opening Endoscopic (ICD-10-PCS; principal; 2017-10-30 12:30)
PROC: 0V507ZZ Destruction of Prostate, Via Natural or Artificial Opening (ICD-10-PCS; principal; 2017-10-30 12:30)
DX: N40.1 Benign prostatic hyperplasia with lower urinary tract symptoms (principal); R33.9 Retention of urine, unspecified; N13.1 Hydronephrosis with ureteral stricture, not elsewhere classified; Z96.0 Presence of urogenital implants
CPT/HCPCS: J1956; J2250; J2704; J3010; J3370

== ENCOUNTER → 2017-12-02 | Outpatient (CLI) | payer OTHER | LOC: FIMAGING 11:48 | PROVIDERS: ATTEND Specialist | DX: N28.82 Megaloureter (principal) ==

== ENCOUNTER → 2018-02-03 | Outpatient (CLI) | payer OTHER | END | disposition home or self-care (01) | LOC: FCPNEURO 20:00 | PROVIDERS: ATTEND Student in an Organized Health Care Education/Training Program | DX: G47.33 Obstructive sleep apnea (adult) (pediatric) (principal) ==

== ENCOUNTER 2018-05-24 22:44 | Emergency (ER) | payer OTHER ==
[2018-05-24 22:51] VITALS: BP 153/93
--- NOTE | 2018-05-24 23:12 | EDPHY ---
H & P Stated Complaint: COPD EXACERBATION, NOT IMPROVING W/ DUONEB, AND ALBUTEROL Time Seen by Provider: 05/24/18 22:53 HPI/ROS: Chief Complaint: COPD exacerbation HPI: 77-year-old male with a history of COPD. He states he only gets exacerbations after he has had upper respiratory infections. Patient had flu A about 3 weeks ago. He had wheezing after that. He did a prednisone taper which ended 4-5 days ago. He has had persistent tightness with breathing. He does speed walk and has been able to do so 3 times this past week but did have some difficulty the last time. No fevers or chills. No chest pain. He has been using a DuoNeb at home every 4 hr but states that after 2 hr he feels worse. He did feel better on the prednisone. He is also using an MDI but is not using a spacer. He has a dry nonproductive cough. No chest pain. No nausea or vomiting. He is not on a controlled steroid inhaler. He has an appointment with primary care physician in 2 days. ROS: 10 systems were reviewed and were negative except those elements noted in the HPI. PMH: COPD, BPH Social History: No smoking, no alcohol, no recreational drug use Family History: non-contributory Physical Exam: Gen: Awake, Alert, No Distress HEENT: Nose: no rhinorrhea Eyes: PERRLA, EOMI Mouth: Moist mucosa Neck: Supple, no JVD Chest: nontender, no focal rales or rhonchi, mild diffuse end expiratory wheeze Heart: S1, S2 normal, no murmur Abd: Soft, non-tender, no guarding Back: no CVA tenderness, no midline tenderness Ext: no edema, non-tender Skin: no rash Neuro: CN II-XII intact, Sensation grossly intact, Strength 5/5 in bilateral upper and lower extremities - Personal History Current Tetanus Diphtheria and Acellular Pertussis (TDAP): Yes - Medical/Surgical History Hx Asthma: Yes Hx Chronic Respiratory Disease: Yes Hx Diabetes: No Hx Cardiac Disease: No Hx Renal Disease: No Hx Cirrhosis: No Hx Alcoholism: No Hx HIV/AIDS: No Hx Splenectomy or Spleen Trauma: No Other PMH: 05/19/12 cervical spinal surgery 05/31, [facility], BPH, COPD,Kidney stone removed 2016, kidney problems (seeing urologist friday), possible parkinsons - Social History Smoking Status: Former smoker Constitutional: Initial Vital Signs Temperature (C) 36.7 C 05/24/18 22:49 Heart Rate 85 05/24/18 22:49 Respiratory Rate 20 05/24/18 22:49 Blood Pressure 153/93 H 05/24/18 22:49 O2 Sat (%) 93 05/24/18 22:49 O2 Delivery Mode Room Air Allergies/Adverse Reactions: Penicillins Allergy (Severe, Verified 10/30/17 11:42) LYMPH NODE SWELLING Sulfa (Sulfonamide Antibiotics) Allergy (Severe, Verified 10/30/17 11:42) LYMPH NODE SWELLING Home Medications: Medication Instructions Recorded Albuterol [Proventil Inhaler HFA 1 - 2 puffs IH DAILY PRN 07/01/17 (*)] Atorvastatin Calcium [Lipitor 10 10 mg PO DAILY AT 6PM 09/02/17 mg (*)] Hydrocodone/APAP 5/325 [[place] 1 - 2 tab PO Q6H PRN #14 tab 10/30/17 5/325 (*)] [place]/Sod Phos/Mblue/Hyoscy 1 each PO QID #30 tablet 10/30/17 [Urogesic-Blue Tablet] Metoprolol Tartrate 25 mg PO BID 10/30/17 Duoneb (*) 05/24/18 Eliquis 05/24/18 predniSONE 60 mg PO DAILY #6 tab 05/24/18 Medical Decision Making ED Course/Re-evaluation: 77-year-old male with reactive airway disease, possible COPD with exacerbations with bronchitis. This your symptoms have been present since and influenza a infection several weeks ago. He states he gets the symptoms after most URI infections. He is not on a controlled inhaler. He is not tachypneic. He has got mild wheezing now. He has not hypoxemic. I will restart him on a short burst of prednisone. He has a primary care physician appointment 2 days. I have also given him an MDI spacer for use with his inhaler. He is declining a nebulizer treatment at this time and states that he can use his own nebulizer at home. I have encouraged him to return for any concerns or worsening symptoms. Departure - Departure Disposition: Home, Routine, Self-Care Clinical Impression: Chronic obstructive pulmonary disease with acute exacerbation Condition: Good Instructions: COPD (Chronic Obstructive Pulmonary Disease) (ED) Additional Instructions: Always use a spacer when you use a metered dose inhaler. You may use your albuterol nebulizer every 4 hr as needed for cough or wheeze. Follow up with primary care physician in 2 days as scheduled. Return to the emergency department for increasing cough, shortness of breath, chest pain, or any other concerns. Referrals: Cindy Medellin MD [Medical Doctor] - As per Instructions Prescriptions: predniSONE 60 mg PO DAILY #6 tab
[2018-05-24] MEDS ORDERED: predniSONE 20 MG TAB PO ONE (23:16)
== END 2018-05-24 23:32 | disposition home or self-care (01) ==
DX: J44.1 Chronic obstructive pulmonary disease with (acute) exacerbation (principal); Z87.891 Personal history of nicotine dependence
CPT/HCPCS: 99283; J7512